=== PATIENT | male | born 1960 | race Caucasian/White ===

== ENCOUNTER → 2023-02-11 | Emergency (ER) | payer OTHER ==
[~2023-02-11] MED LIST: CEFTRIAXONE 1000 MG/VIAL ONE; NA CHLORIDE 0.9% 1,000 ML ONE; dexAMETHasone 10 MG/ML VIAL ONE
[2023-02-11 22:38] LABS: Potassium 3.6 mEq/L (3.5-5.1)
[2023-02-11 22:56] LABS: Absolute Lymphocytes (CBC) 1.7 K/uL (0.7-4.9); Hematocrit 41.8 % (39.6-49.0); MCV 87.7 fL (80-100); MPV 7.9 fL (7.6-11.3); Platelets 295 thou/uL (152-406); RBC Red Blood Cell Count 4.77 M/uL (4.33-5.43)
--- NOTE | 2023-02-12 00:11 | ER ---
Nurse's Notes [facility] Name: Julius Perez Jr Age: 63 yrs Sex: Male : 1960 Arrival Date: 02/11/2023 Time: 21:30 Bed 17 Private MD: Diagnosis: Streptococcal tonsillitis;Periapical abscess without sinus Presentation: 02/11 21:54 Chief complaint: Patient states: right sided throat and ear pain onset this morning. Pt cm10 states that he is trouble swallowing. Coronavirus screen: Client denies travel out of the [place] in the last 14 days. Ebola Screen: Patient denies travel to an Ebola-affected area in the 21 days before illness onset. No symptoms or risks identified at this time. Initial Sepsis Screen: Does the patient meet any 2 criteria? HR > 90 bpm. Does the patient have a suspected source of infection? No. Patient's initial sepsis screen is negative. Risk Assessment: Do you want to hurt yourself or someone else? Patient reports no desire to harm self or others. Onset of symptoms was February 11, 2023. 21:54 Method Of Arrival: Ambulatory cm10 21:54 Acuity: DENNIS 3 cm10 Historical: - Allergies: 21:55 No Known Allergies; cm10 - PMHx: 21:55 Diabetes mellitus; Hypertensive disorder; Hypercholesterolemia; cm10 - Immunization history:: Adult Immunizations up to date. - Social history:: Smoking status: Patient denies any tobacco usage or history of. Screenin:16 [facility] ED Fall Risk Assessment (Adult) History of falling in the last 3 months, lg3 including since admission No falls in past 3 months (0 pts). Abuse screen: Denies threats or abuse. Denies injuries from another. Nutritional screening: No deficits noted. Tuberculosis screening: No symptoms or risk factors identified. Assessment: 22:16 General: Appears in no apparent distress. uncomfortable, Behavior is calm, cooperative. lg3 Pain: Complains of pain in right ear, throat. Neuro: No deficits noted. Hernandez Agitation-Sedation Scale (RASS): 0 - Alert and Calm Level of Consciousness is awake, alert, obeys commands, Oriented to person, place, time, situation. Cardiovascular: No deficits noted. Denies chest pain, shortness of breath, Capillary refill < 3 seconds Clubbing of nail beds is absent JVD is absent Patient's skin is warm and dry. Respiratory: No deficits noted. Airway is patent Respiratory effort is even, unlabored, Respiratory pattern is regular, symmetrical. GI: No deficits noted. No signs and/or symptoms were reported involving the gastrointestinal system. Abdomen is round non-distended, obese. : No deficits noted. No signs and/or symptoms were reported regarding the genitourinary system. EENT: Throat is reddened has enlarged tonsils on right with gag reflex present, Reports difficulty swallowing pain when swallowing. Derm: No deficits noted. No signs and/or symptoms reported regarding the dermatologic system. Skin is intact, is healthy with good turgor, Skin is dry, Skin is normal, Skin temperature is warm. Musculoskeletal: No deficits noted. No signs and/or symptoms reported regarding the musculoskeletal system. Circulation, motion, and sensation intact. Range of motion: intact in all extremities. 02/12 00:33 Reassessment: Patient appears in no apparent distress at this time. Patient and/or jb4 family updated on plan of care and expected duration. Pain level reassessed. Patient is alert, oriented x 3, equal unlabored respirations, skin warm/dry/pink. Vital Signs: 02/11 21:54 BP 175 / 93; Pulse 115; Resp 18; Temp 99.6(O); Pulse Ox 96% on R/A; Weight 88.45 kg; cm10 Height 5 ft. 9 in. ; Pain 10/10; 21:54 Body Mass Index 28.80 (88.45 kg, 175.26 cm) cm10 21:54 Pain Scale: Adult cm10 ED Course: 21:38 Patient arrived in ED. gm2 21:41 Larissa [facility]il[facility]-C [facility]. kb 21:41 Juan Sanchez MD is Attending Physician. kb 21:55 Triage completed. cm10 21:56 Arm band placed on Patient placed in an exam room, on a stretcher. cm10 22:16 Patient has correct armband on for positive identification. Placed in gown. Bed in low lg3 position. Call light in reach. Side rails up X 1. Client placed on continuous cardiac and pulse oximetry monitoring. NIBP monitoring applied. Door closed. Noise minimized. Warm blanket given. 22:16 Patient maintains SpO2 saturation greater than 95% on room air. lg3 22:20 CBC with Diff Sent. jb4 22:20 Basic Metabolic Panel Sent. jb4 22:20 Strep Sent. jb4 22:20 Inserted saline lock: 18 gauge in right antecubital area, using aseptic technique. lg3 Blood collected. 23:40 CT Soft Tissue Neck W/contr In Process Unspecified. EDMS 02/12 00:33 No provider procedures requiring assistance completed. jb4 00:40 IV discontinued, intact, bleeding controlled, No redness/swelling at site. Pressure jb4 dressing applied. Administered Medications: 02/11 22:45 Drug: NS 0.9% IV 1000 ml IV at 1000 ml once Route: IV; Rate: 1000 ml; Site: right lg3 antecubital; 22:45 Drug: Decadron - Dexamethasone IVP 10 mg IVP once Route: IVP; Site: right antecubital; lg3 02/12 00:32 Drug: Rocephin IV 1 grams IV at calculated rate once; Given slow IV push per pharmacy jb4 instructions Route: IV; Rate: calculated rate; Site: right antecubital; Medication: 00:33 VIS not applicable for this client. jb4 Outcome: 00:10 Discharge ordered by . eli 00:34 Discharged to home ambulatory, jb4 00:34 Condition: stable 00:34 Discharge instructions given to patient, Instructed on discharge instructions, follow up and referral plans. medication usage, Demonstrated understanding of instructions, follow-up care, medications, Prescriptions given X 1, 00:40 Patient left the ED. jb4 Signatures: Dispatcher [employer] [facility] Larissa Aguilera, DOUGHMAKER-C DOUGHMAKER-CkDelroy Aguilar RN RN jb4 Sarah Perla RN RN lg3 Adriana Julian, RN RN cm10 Margarita Lima 2
--- NOTE | 2023-02-12 00:11 | EDPHYS ---
Physician Documentation [facility] Name: Julius Perez Jr Age: 63 yrs Sex: Male : 1960 Arrival Date: 02/11/2023 Time: 21:30 Bed 17 Private MD: ED Physician Juan Sanchez HPI: 02/11 23:46 This 63 yrs old Male presents to ER via Ambulatory with complaints of Ear Pain, Sore kb Throat, HARD TO SWALLOW. 23:46 Pt reports right sided throat pain and right ear pain that started this morning. States kb he had a low grade fever today as well. Denies cough, congestion, shortness of breath. Historical: - Allergies: 21:55 No Known Allergies; cm10 - PMHx: 21:55 Diabetes mellitus; Hypertensive disorder; Hypercholesterolemia; cm10 - Immunization history:: Adult Immunizations up to date. - Social history:: Smoking status: Patient denies any tobacco usage or history of. ROS: 23:46 Respiratory: Negative for shortness of breath, cough, wheezing, and pleuritic chest kb pain, 23:46 Constitutional: Positive for fever, 23:46 ENT: Positive for ear pain, sore throat, 23:46 All other systems are negative, Exam: 23:46 Constitutional: This is a well developed, well nourished patient who is awake, alert, kb and in no acute distress. Head/Face: Normocephalic, atraumatic. Cardiovascular: Regular rate Respiratory: Respirations even and unlabored. No increased work of breathing. Talking in full sentences Skin: Warm, dry with normal turgor. Normal color. MS/ Extremity: Pulses equal, no cyanosis. Neurovascular intact. Full, normal range of motion. Neuro: Awake and alert, GCS 15, oriented to person, place, time, and situation. Moves all extremities. Normal gait. 23:46 ENT: External ear(s): are unremarkable, Ear canal(s): are normal, TM's: are normal, Posterior pharynx: Airway: normal, no evidence of obstruction, Tonsils: enlarged on the right, with erythema, Uvula: normal, midline, swelling, that is moderate, erythema, that is moderate, Vital Signs: 21:54 BP 175 / 93; Pulse 115; Resp 18; Temp 99.6(O); Pulse Ox 96% on R/A; Weight 88.45 kg; cm10 Height 5 ft. 9 in. ; Pain 10/10; 21:54 Body Mass Index 28.80 (88.45 kg, 175.26 cm) cm10 21:54 Pain Scale: Adult cm10 MDM: 21:42 Patient medically screened. kb 23:48 Differential diagnosis: strep, pharyngitis, otitis media, RETAIL SERVICE TECHNICIAN. Data reviewed: vital kb signs, nurses notes. 02/12 00:09 Counseling: I had a detailed discussion with the patient and/or guardian regarding the kb historical points, exam findings, and any diagnostic results supporting the discharge/admit diagnosis, lab results, radiology results, the need for outpatient follow up, a dentist, an ENT specialist, to return to the emergency department if symptoms worsen or persist or if there are any questions or concerns that arise at home. ED course: CT shows no abscess. Will discharge home with antibiotics and recommend follow up with ENT. 02/11 21:56 Order name: CBC with Diff; Complete Time: 23:08 kb 02/11 21:56 Order name: Basic Metabolic Panel; Complete Time: 22:44 kb 02/11 21:56 Order name: Strep; Complete Time: 23:51 kb 02/11 21:56 Order name: CT Soft Tissue Neck W/contr kb 02/11 21:56 Order name: IV Start; Complete Time: 22:20 kb Administered Medications: 02/11 22:45 Drug: NS 0.9% IV 1000 ml IV at 1000 ml once Route: IV; Rate: 1000 ml; Site: right lg3 antecubital; 22:45 Drug: Decadron - Dexamethasone IVP 10 mg IVP once Route: IVP; Site: right antecubital; lg3 02/12 00:32 Drug: Rocephin IV 1 grams IV at calculated rate once; Given slow IV push per pharmacy jb4 instructions Route: IV; Rate: calculated rate; Site: right antecubital; Disposition Summary: 02/12/23 00:10 Discharge Ordered Notes: Location: Home kb Condition: Stable kb Diagnosis - Streptococcal tonsillitis kb - Periapical abscess without sinus kb Followup: kb - With: Emergency Department - When: As needed - Reason: Worsening of condition Followup: kb - With: Private Physician - When: 2 - 3 days - Reason: Recheck today's complaints, Continuance of care, Re-evaluation by your physician Discharge Instructions: - Discharge Summary Sheet kb - Strep Throat, Adult, [id number] kb - Dental Abscess, [id number] kb Forms: - Medication Reconciliation Form kb - Thank You Letter kb - Antibiotic Education kb - Prescription Opioid Use kb - Patient Portal Instructions kb - Leadership Thank You Letter kb Prescriptions: - Augmentin 875-125 mg Oral Tablet - take 1 tablet ORAL route every 12 hours for 10 days; 20 tablet; Refills: 0, kb Product Selection Permitted Signatures: Dispatcher [employer] EDMS Larissa Aguilera, CRITICAL CARE NURSE-C CRITICAL CARE NURSE-Ckb Delroy Espinoza, RN RN jb4 Sarah Perla RN RN lg3 Adriana Julian, RN RN cm10
[2023-02-12 02:18] VITALS: BP 175/93; TEMP 99.6; O2SAT 96
--- NOTE | 2023-02-12 08:28 | RAD REPORT ---
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 Intravenous contrast was adm inistered. This exam was performed according to our departmental dose-optimization program which includes use of Automated Exposure Control, adjustment of the mA and/or kV according to patient size and. Effaceme nt right piriform sinus. Or use of iterative reconstruction technique. FINDINGS: 2.6 x 1.9 cm ill-defined focal region of decreased attenuation right tonsillar soft tissue s. Ill-defined enhancement is seen. No definite peripheral enhancement noted. The finding would be mo st consistent with phlegmon and pharyngitis. No well-defined drainable abscess seen. Airway narrowing at this level. Additional edema extending from the parapharyngeal soft tissues on the right inferior ly to the aryepiglottic folds and superiorly to the right pterygoid plate. No edema is seen involving the epiglottis. There is effacement right piriform sinus. No additional laryngeal abnormalities seen . Enlarged right submandibular gland as compared to the left likely reactive inflammation. No abnorma lity parotid glands bilaterally. At least 3 dental abscesses right lower teeth. Additional multiple d ental abscesses right upper teeth. Multiple dental caries bilaterally. Nonspecific punctate calcifica tions parapharyngeal soft tissues. No filling defects carotid arteries or jugular veins bilaterally. Adenopathy retromandibular regions bilaterally. The largest lymph node on the right measures 1.6 cm in transverse dimension. The largest lymph node on the left measures 1.7 cm in transverse dimension. Prevertebral soft tissues appear nor mal. No CT evidence for retropharyngeal abscess. Mild mucosal thickening maxillary antra bilaterally. No abnormality in lung apices bilaterally. No acute osseous abnormality. Reversal normal cervical lordosis indicating muscle spasm. Mild degener ative change IMPRESSION: 1. Edema right parapharyngeal soft tissues with 2.6 cm ill-defined region of decreased attenuation right tonsillar soft tissues. The findings extend inferiorly to the right aryepiglottic folds. No edema involving the epiglottis. The findings would be most consistent with phlegmon and pha ryngitis. No well-defined drainable abscess seen. Airway narrowing at this level. Associated multiple right dental abscesses. 2. Mild bilateral cervical adenopathy. 3. Enlarged right submandibular gland likely reactive inflammation. Electronically signed by: Noelle Lopes MD 02/12/2023 12:05 AM PIPE [employer]TER MARINE Due to temporary technical issues with the PACS/Fluency reporting system, reports are being signed by the in house radiologist without review as a courtesy to ensure prompt reporting. The interpreting r adiologist is fully responsible for the content of the report.
== END ==
LOC: ER 21:30
DX: J02.0 Streptococcal pharyngitis (principal); K04.7 Periapical abscess without sinus; H92.01 Otalgia, right ear; E11.9 Type 2 diabetes mellitus without complications; I10 Essential (primary) hypertension
CPT/HCPCS: 85025; 80048; 36415; 87081; 70491; 96375; 96374; 99285; Q9967; J1100; J7030

== ENCOUNTER 2024-03-12 11:31 | Emergency (ER) | payer OTHER ==
--- NOTE | 2024-03-12 13:44 | RAD REPORT ---
EXAMINATION: US Extrem Venous W Compress Taran CLINICAL INDICATION: [facility] MAIN PAIN Bed: N TECHNIQUE: Complete bilateral duplex sonography of the BILATERAL lower extremity veins was performed. The examination included compression for vein patency, color Doppler imaging and flow augmentation in response to distal compression of the distal external iliac, common femoral, femoral, popliteal, t ibial, and great and small saphenous veins. COMPARISON: No prior exam. FINDINGS: Duplex sonography testing of the veins of the BILATERAL lower extremity was performed. Color flow matthieu ging shows all veins to be compressible with rouleaux appearance bilaterally which may suggest slow flow. Pulsatile and phasic flow is present within all lower extremity deep and superficial veins exam ined. IMPRESSION: No evidence of deep venous or superficial vein thrombosis bilaterally.
--- NOTE | 2024-03-12 13:50 | RAD REPORT ---
EXAMINATION: ONE VIEW CHEST XR CLINICAL INDICATION: Male, 64 years old.,Pain;Swelling TECHNIQUE: Frontal chest projection is submitted. Examination is limited by patient positioning and t echnique. COMPARISON: No prior exam. FINDINGS: The lungs are well inflated and clear. No pneumothorax or sizable effusion. The heart is normal in s ize. Mediastinal contours are unremarkable. IMPRESSION: No acute intrathoracic abnormalities.
[2024-03-12 13:51] LABS: Specific Gravity 1.013 (1.005-1.030); Urine Bilirubin NEGATIVE (Negative); Urine Blood Negative (Negative); Urine Clarity Clear (Clear); Urine Color Colorless (Yellow); Urine Glucose 4+ (Over) (Negative); Urine Ketones NEGATIVE (Negative); Urine Microscopic Reflex YN NO UMIC; Urine Nitrite NEGATIVE (Negative); Urine Protein NEGATIVE (Negative); Urine Urobilinogen Normal (Normal); Urine pH 6.5 (5.0-7.0)
[2024-03-12 13:55] LABS: PT Prothrombin Time 11.5 SECONDS (9.4-12.5); Protime INR 1.1
[2024-03-12 14:02] LABS: Absolute Basophils 0.1 K/uL (0-0.5); Absolute Eosinophils 0.2 K/uL (0-0.5); Absolute Lymphocytes (CBC) 2.1 K/uL (0.7-4.9); Absolute Monocytes 0.8 K/uL (0.1-1.3); Basophils % 1.1 % (0-1.3); Hematocrit 37.6 % (39.6-49.0); Hemoglobin 13.1 g/dL (13.6-17.9); Lymphocytes % 20.3 % (15.3-44.8); MCH 30.7 pg (27.0-35.0); MCHC 34.8 g/dL (32.0-36.0); MCV 88.1 fL (80-100); Neutrophils % 68.6 % (41.7-73.7); Nucleated Red Blood Cells % 0.1 % (0-0); Platelets 445 thou/uL (152-406); RBC Red Blood Cell Count 4.26 M/uL (4.33-5.43); Red Cell Distribution Width 12.9 % (12.1-15.2)
[2024-03-12 14:10] LABS: Albumin 3.3 g/dL (3.4-5.0); Albumin/Globulin Ratio 0.7 (1.1-1.8); Anion Gap 8.7 mEq/L (5.0-15.0); Bilirubin Direct 0.3 mg/dL (0-0.2); Bilirubin Indirect, Calculated 0.9 mg/dL (0.2-0.8); Bilirubin Total 1.2 mg/dL (0.2-1.0); Globulin 4.7 g/dL (2.3-3.5); Magnesium 2.5 mg/dL (1.6-2.4); Potassium 2.7 mEq/L (3.5-5.1); Troponin High Sensitivity 37.7 pg/mL (<58.9)
[2024-03-12] MEDS ORDERED: POTASSIUM 25 MEQ EFFERV TAB ONE ×2 (15:14→15:46)
[2024-03-12] MEDS ORDERED: NA CHLORIDE 0.9% 250 ML ONE (15:14)
--- NOTE | 2024-03-12 15:42 | ER ---
Nurse's Notes [facility] Name: Julius Perez Jr Age: 64 yrs Sex: Male : 1960 Arrival Date: 03/12/2024 Time: 11:31 Bed 6 Private MD: Diagnosis: Edema, unspecified;Retention of urine, unspecified;Essential (primary) hypertension;Unspecified kidney failure-POST OBSTRUCTIVE;Hypokalemia Presentation: 03/12 12:10 Chief complaint: Patient states: Left leg pain and swelling onset Sunday. Pt states cm10 that Sunday night both of his legs were swollen. Pt also reports right flank pain with incontinence. Pt had long drive on Sunday and Sunday. No shortness of breath. Coronavirus screen: Client denies travel out of the [place] in the last 14 days. Ebola Screen: Patient denies travel to an Ebola-affected area in the 21 days before illness onset. Initial Sepsis Screen: Does the patient meet any 2 criteria? No. Patient's initial sepsis screen is negative. Does the patient have a suspected source of infection? No. Patient's initial sepsis screen is negative. Risk Assessment: Do you want to hurt yourself or someone else? Patient reports no desire to harm self or others. Onset of symptoms was March 12, 2024. 12:10 Method Of Arrival: Ambulatory cm10 12:10 Acuity: DENNIS 3 cm10 Triage Assessment: 12:13 General: Appears in no apparent distress. comfortable, Behavior is calm, cooperative. cm10 Neuro: No deficits noted. Level of Consciousness is awake, alert, obeys commands, Oriented to person, place, time, situation, Appropriate for age. Respiratory: No deficits noted. Airway is patent Respiratory effort is even, unlabored, Respiratory pattern is regular, symmetrical. Historical: - Allergies: 12:12 No Known Allergies; cm10 - PMHx: 12:12 diabetes mellitus; Hypercholesterolemia; Hypertensive disorder; cm10 - Immunization history:: Adult Immunizations up to date. - Infectious Disease History:: Denies. - Social history:: Smoking status: Patient denies any tobacco usage or history of. Patient/guardian denies using street drugs. - Family history:: not pertinent. Screenin:44 [facility] ED Fall Risk Assessment (Adult) History of falling in the last 3 months, kc6 including since admission No falls in past 3 months (0 pts) Confusion or Disorientation No (0 pts) Intoxicated or Sedated No (0 pts) Impaired Gait No (0 pts) Mobility Assist Device Used No (0 pt) Altered Elimination No (0 pt) Score/Fall Risk Level 0 - 2 = Low Risk Oriented to surroundings, Maintained a safe environment, Educated pt \T\ family on fall prevention, incl call for assistance when getting out of bed. Abuse screen: Denies threats or abuse. Denies injuries from another. Nutritional screening: No deficits noted. Tuberculosis screening: No symptoms or risk factors identified. Assessment: 15:42 Reassessment: Patient and/or family updated on plan of care and expected duration. Pain bm7 level reassessed. Patient is alert, oriented x 3, equal unlabored respirations, skin warm/dry/pink. Pain: Denies pain. Vital Signs: 12:10 BP 196 / 102; Pulse 87; Resp 15; Temp 97.4(O); Pulse Ox 96% ; Weight 88.45 kg; Height 5 cm10 ft. 8 in. ; Pain 7/10; 17:17 BP 182 / 90; Pulse 85; Resp 17 S; Pulse Ox 99% on R/A; kc6 12:10 Body Mass Index 29.65 (88.45 kg, 172.72 cm) cm10 12:10 Pain Scale: Adult cm10 ED Course: 11:35 Patient arrived in ED. mr 11:39 Juan Sanchez MD is Attending Physician. adamaris 12:12 Triage completed. cm10 12:12 Arm band placed on right wrist. Patient placed in waiting room. cm10 13:10 US Extremity Venous W Compression Taran In Process Unspecified. EDMS 13:10 Radiology exam delayed due to unable to locate patient. multiple attempts. md2 13:20 XRAY Chest (1 view) In Process Unspecified. EDMS 13:44 Lipase Sent. bc6 13:44 Urinalysis w/ reflexes Sent. bc6 13:44 Basic Metabolic Panel Sent. bc6 13:44 CBC with Diff Sent. bc6 13:44 LFT's Sent. bc6 13:44 Magnesium Sent. bc6 13:44 NT PRO-BNP Sent. bc6 13:44 PT-INR Sent. bc6 13:44 Troponin HS Sent. bc6 13:44 Initial lab(s) drawn, by me, sent to lab. Urine collected: clean catch specimen. bc6 Inserted saline lock: 20 gauge in right antecubital area, using aseptic technique. Blood collected. Flushed with 10 mL NS. 15:21 Melani Rice, SHAVON is Primary Nurse. ld1 15:26 CT Stone Protocol In Process Unspecified. EDMS 15:41 Kavno Cordova MD is Referral Physician. [facility] 15:41 Jaffe cath inserted, using sterile technique, 16 Fr., by me, balloon inflated, to ty gravity drainage, clamped. returned clear yellow urine. Patient tolerated well. 15:42 No apparent distress. Resting quietly. Awaiting lab results. bm7 16:44 Patient has correct armband on for positive identification. Bed in low position. Call kc6 light in reach. Side rails up X2. Pulse ox on. NIBP on. Door closed. Noise minimized. Lights dimmed. Warm blanket given. Pillow given. 17:17 No provider procedures requiring assistance completed. IV discontinued, intact, kc6 bleeding controlled, No redness/swelling at site. Pressure dressing applied. Administered Medications: 12:02 CANCELLED (Duplicate Order): ns 0.9% 250 ml IV at 75 ml/hr once; to be given as a bolus adamaris over 30 minutes 15:21 Drug: NS 0.9% IV 250 ml IV at 75 ml/hr once Route: IV; Rate: 75 ml/hr; Site: right ld1 antecubital; 17:17 Follow up: Response: No adverse reaction; IV Status: Completed infusion; IV Intake: kc6 100ml 15:21 Drug: Potassium PO Effervescent Tablet 50 mEq PO once; dissolve in 4 ounces of water or ld1 juice Route: PO; 15:44 Follow up: Response: No adverse reaction bm7 15:53 Drug: Ciprofloxacin PO 500 mg PO once Route: PO; ld1 15:54 Follow up: Response: No adverse reaction ld1 15:53 Drug: Potassium PO Effervescent Tablet 50 mEq PO once; dissolve in 4 ounces of water or ld1 juice Route: PO; 15:54 Follow up: Response: No adverse reaction ld1 Medication: 17:18 VIS not applicable for this client. kc6 Intake: 17:17 IV: 100ml; Total: 100ml. kc6 Output: 15:41 Urine: 1000ml (Jaffe); Total: 1000ml. bm7 15:55 Urine: 1000ml (Jaffe); Total: 2000ml. ty Outcome: 15:41 Discharge ordered by . adamaris 17:17 Discharged to home ambulatory, mary 17:17 Condition: good 17:17 Discharge instructions given to patient, Instructed on discharge instructions, follow up and referral plans. medication usage, Demonstrated understanding of instructions, follow-up care, medications, Prescriptions given X 2, 17:24 Patient left the ED. kc6 Signatures: Dispatcher [employer] EDMS Juan Sanchez MD MD cha Rivera, Beryl, Reg Reg mr LukeNellie, RN RN bm7 Melani Rice RN RN ld1 Ivett Solorio RN RN kc6 Guerda Simental Breana bc6 Martinez, Clarissa RN RN cm10 Yves Rosenthal ty
--- NOTE | 2024-03-12 15:42 | EDPHYS ---
Physician Documentation [facility] Name: Julius Perez Jr Age: 64 yrs Sex: Male : 1960 Arrival Date: 03/12/2024 Time: 11:31 Bed 6 Private MD: MARK Physician Juan Sanchez HPI: 03/12 15:03 This 64 yrs old Male presents to ER via Ambulatory with complaints of Leg adamaris Swelling, Urinary Problem. 15:03 The patient presents with decreased range of motion, pain, swelling, tenderness. The adamaris complaints affect the right leg and left leg. Context: The problem was sustained at an unknown site. Onset: The symptoms/episode began/occurred 3 day(s) ago. Modifying factors: The symptoms are alleviated by nothing. the symptoms are aggravated by movement. Associated signs and symptoms: Pertinent positives: swelling, of the right leg and left leg. The patient presents with urinary symptoms, dribbling of urine, dysuria, urinary frequency, hesitancy to initiate urine stream. Modifying factors: The symptoms are alleviated by nothing, the symptoms are aggravated by nothing. cat pee normally, lower abd pain , le swelling. Associated signs and symptoms: Pertinent positives: abdominal pain. Historical: - Allergies: 12:12 No Known Allergies; cm10 - PMHx: 12:12 diabetes mellitus; Hypercholesterolemia; Hypertensive disorder; cm10 - Immunization history:: Adult Immunizations up to date. - Infectious Disease History:: Denies. - Social history:: Smoking status: Patient denies any tobacco usage or history of. Patient/guardian denies using street drugs. - Family history:: not pertinent. ROS: 15:03 Constitutional: Negative for fever, chills, and weight loss, Eyes: Negative for injury, adamaris pain, redness, and discharge, ENT: Negative for injury, pain, and discharge, Neck: Negative for injury, pain, and swelling, Cardiovascular: Negative for chest pain, palpitations, and edema, Respiratory: Negative for shortness of breath, cough, wheezing, and pleuritic chest pain, Back: Negative for injury and pain, Skin: Negative for injury, rash, and discoloration, Neuro: Negative for headache, weakness, numbness, tingling, and seizure, Psych: Negative for depression, anxiety, suicide ideation, homicidal ideation, and hallucinations, Allergy/Immunology: Negative for hives, rash, and allergies, Endocrine: Negative for neck swelling, polydipsia, polyuria, polyphagia, and marked weight changes, Hematologic/Lymphatic: Negative for swollen nodes, abnormal bleeding, and unusual bruising, 15:03 Abdomen/GI: Positive for abdominal pain, of the suprapubic area, right lower quadrant and left lower quadrant, 15:03 MS/extremity: Positive for pain, swelling, tenderness, of the right leg and left leg, Exam: 15:03 Constitutional: This is a well developed, well nourished patient who is awake, alert, adamaris and in no acute distress. Head/Face: Normocephalic, atraumatic. Eyes: Pupils equal round and reactive to light, extra-ocular motions intact. Lids and lashes normal. Conjunctiva and sclera are non-icteric and not injected. Cornea within normal limits. Periorbital areas with no swelling, redness, or edema. ENT: Nares patent. No nasal discharge, no septal abnormalities noted. Tympanic membranes are normal and external auditory canals are clear. Oropharynx with no redness, swelling, or masses, exudates, or evidence of obstruction, uvula midline. Mucous membranes moist. Neck: Trachea midline, no thyromegaly or masses palpated, and no cervical lymphadenopathy. Supple, full range of motion without nuchal rigidity, or vertebral point tenderness. No Meningismus. Chest/axilla: Normal chest wall appearance and motion. Nontender with no deformity. No lesions are appreciated. Cardiovascular: Regular rate and rhythm with a normal S1 and S2. No gallops, murmurs, or rubs. Normal PMI, no JVD. No pulse deficits. Respiratory: Lungs have equal breath sounds bilaterally, clear to auscultation and percussion. No rales, rhonchi or wheezes noted. No increased work of breathing, no retractions or nasal flaring. Back: No spinal tenderness. No costovertebral tenderness. Full range of motion. Skin: Warm, dry with normal turgor. Normal color with no rashes, no lesions, and no evidence of cellulitis. Neuro: Awake and alert, GCS 15, oriented to person, place, time, and situation. Cranial nerves II-XII grossly intact. Motor strength 5/5 in all extremities. Sensory grossly intact. Cerebellar exam normal. Normal gait. Psych: Awake, alert, with orientation to person, place and time. Behavior, mood, and affect are within normal limits. 15:03 Abdomen/GI: Inspection: distension, that is moderate, Bowel sounds: normal, Palpation: mild abdominal tenderness, in the suprapubic area, Liver: no appreciated palpable abnormalities, Hernia: not appreciated, 15:03 Musculoskeletal/extremity: ROM: no acute changes, intact in all extremities, full active range of motion, full passive range of motion, Circulation is intact in all extremities. Sensation intact. Compartment Syndrome exam of affected extremity: is normal. Weight bearing: able to fully bear weight, DVT Exam: no pain, swelling, tenderness, 15:29 ECG was reviewed by the Attending Physician. [facility] Vital Signs: 12:10 BP 196 / 102; Pulse 87; Resp 15; Temp 97.4(O); Pulse Ox 96% ; Weight 88.45 kg; Height 5 cm10 ft. 8 in. ; Pain 7/10; 17:17 BP 182 / 90; Pulse 85; Resp 17 S; Pulse Ox 99% on R/A; kc6 12:10 Body Mass Index 29.65 (88.45 kg, 172.72 cm) cm10 12:10 Pain Scale: Adult cm10 MDM: 11:39 Medical Screening Exam initiated adamaris 15:12 Differential diagnosis: nonspecific abdominal pain, UTI, urinary retention, adamaris prostatitis, urethritis. Differential Diagnosis. Data reviewed: vital signs, nurses notes, lab test result(s), EKG, radiologic studies, CT scan, doppler, plain films. Consideration of Admission/Observation Escalation of care including admission/observation considered. I considered the following discharge prescriptions or medication management in the emergency department Medications were administered in the Emergency Department. See MAR. Independent interpretation of the following test(s) in the Emergency Department EKG: See my EKG interpretation above. Test considered but Not performed: Ultrasound no abd usg. 03/12 12: Order name: Basic Metabolic Panel; Complete Time: 14:52 [facility] 03/12 12: Order name: CBC with Diff; Complete Time: 14:52 [facility] 03/12 12: Order name: LFT's; Complete Time: 14:52 [facility] 03/12 12: Order name: Magnesium; Complete Time: 14:52 [facility] 03/12 12: Order name: NT PRO-BNP; Complete Time: 14:52 [facility] 03/12 12:02 Order name: PT-INR; Complete Time: 14:52 adamaris 03/12 12:02 Order name: Troponin HS; Complete Time: 14:52 [facility] 03/12 12:02 Order name: Urinalysis w/ reflexes; Complete Time: 14:52 adamaris 03/12 12:02 Order name: Lipase; Complete Time: 14:52 [facility] 03/12 12:02 Order name: XRAY Chest (1 view); Complete Time: 14:52 adam[facility] 03/12 12:02 Order name: US Extremity Venous W Compression Taran; Complete Time: 14:52 [facility] 03/12 14:59 Order name: CT Stone Protocol adamaris 03/12 12:02 Order name: EKG; Complete Time: 12:03 [facility] 03/12 12:02 Order name: Cardiac monitoring; Complete Time: 15:21 [facility] 03/12 12:02 Order name: EKG - Nurse/Tech; Complete Time: 15:21 [facility] 03/12 12:02 Order name: IV Saline Lock; Complete Time: 13:44 [facility] 03/12 12:02 Order name: Labs collected and sent; Complete Time: 13:44 [facility] 03/12 12:02 Order name: O2 Per Protocol; Complete Time: 15:07 adamaris 03/12 12:02 Order name: O2 Sat Monitoring; Complete Time: 15:07 adamaris 03/12 14:59 Order name: PO challenge: juice; Complete Time: 15:21 [facility] 03/12 14:59 Order name: Bladder Scanner: note pvr, laonso if greater than 100cc; Complete Time: 15:37[facility] 03/12 15:35 Order name: Alonso: note pvr; Complete Time: 15:37 [facility] 03/12 15:36 Order name: Alonso Leg Bag; Complete Time: 15:37 [facility] EC:29 Rate is 89 beats/min. Rhythm is regular. QRS [place] is Normal. CA interval is normal. QRS adamaris interval is normal. QT interval is normal. No Q waves. T waves are Normal. No ST changes noted. Clinical impression: NSR w/ Non-specific ST/T Changes and No evidence of ischemia. Interpreted by me. Reviewed by me. Administered Medications: 12:02 CANCELLED (Duplicate Order): ns 0.9% 250 ml IV at 75 ml/hr once; to be given as a bolus [facility] over 30 minutes 15:21 Drug: NS 0.9% IV 250 ml IV at 75 ml/hr once Route: IV; Rate: 75 ml/hr; Site: right ld1 antecubital; 17:17 Follow up: Response: No adverse reaction; IV Status: Completed infusion; IV Intake: kc6 100ml 15:21 Drug: Potassium PO Effervescent Tablet 50 mEq PO once; dissolve in 4 ounces of water or ld1 juice Route: PO; 15:44 Follow up: Response: No adverse reaction bm7 15:53 Drug: Ciprofloxacin PO 500 mg PO once Route: PO; ld1 15:54 Follow up: Response: No adverse reaction ld1 15:53 Drug: Potassium PO Effervescent Tablet 50 mEq PO once; dissolve in 4 ounces of water or ld1 juice Route: PO; 15:54 Follow up: Response: No adverse reaction ld1 Disposition Summary: 03/12/24 15:41 Discharge Ordered Notes: Location: Home adamaris Problem: new adamaris Symptoms: have improved adamaris Condition: Stable adamaris Diagnosis - Edema, unspecified adamaris - Retention of urine, unspecified adamaris - Essential (primary) hypertension adamaris - Unspecified kidney failure - POST OBSTRUCTIVE adamaris - Hypokalemia adamaris Followup: adamaris - With: Private Physician - When: 2 - 3 days - Reason: Recheck today's complaints, Continuance of care, Re-evaluation by your physician Followup: adamaris - With: Kavon Cordova MD - When: 2 - 3 days - Reason: Recheck today's complaints, Re-evaluation by your physician Discharge Instructions: - Discharge Summary Sheet adamaris - Potassium Content of Foods adamaris - Edema adamaris - Hypertension, Adult adamaris - Acute Urinary Retention, Male adamaris - Hypertension, Adult, [id number] adamaris - Acute Urinary Retention, Male, [id number]-[id number] adamaris - Edema, Vfag-wa-Flfc adamaris - Acute Kidney Injury, Adult adamaris - Hypokalemia adamaris Forms: - Medication Reconciliation Form adamaris - Antibiotic Education adamaris - Prescription Opioid Use adamaris - Patient Portal Instructions adamaris - Leadership Thank You Letter [facility] Prescriptions: - Flomax 0.4 mg Oral capsule - take 1 capsule ORAL route once; 30 capsule; Refills: 0, Product Selection adamaris Permitted - Cipro 250 mg Oral tablet - take 1 tablet ORAL route every 12 hours; 14 tablet; Refills: 0, Product adamaris Selection Permitted Signatures: Dispatcher [employer] Juan Escobar MD MD cha Sims, Lauren RN RN ld1 Adriana Julian RN RN cm10 Nellie Butler RN bm7 Ivett Solorio RN kc6 Corrections: (The following items were deleted from the chart) 12: 12:02 NS 0.9% IV 250 ml IV at 75 ml/hr once; to be given as a bolus over 30 minutes adamaris ordered. adamaris 12: 12:03 BASIC METABOLIC PANEL+C.LAB.BRZ ordered. EDMS EDMS 12: 12:03 CBC+H.LAB.BRZ ordered. EDMS EDMS 12: 12:03 HEPATIC FUNCTION+C.LAB.BRZ ordered. EDMS EDMS 12: 12:03 MAGNESIUM+C.LAB.BRZ ordered. EDMS EDMS 12: 12:03 PROBNP+C.LAB.BRZ ordered. EDMS EDMS 12: 12:03 PROTIME (+INR)+COAG.LAB.BRZ ordered. EDMS EDMS 12: 12:03 Troponin High Sensitivity+C.LAB.BRZ ordered. EDMS EDMS 12: 12:03 Urinalysis+U.LAB.BRZ ordered. EDMS EDMS 12:03 12:03 LIPASE+C.LAB.BRZ ordered. EDMS EDMS 12:03 12:03 Extrem Venous W Compression Taran+US.RAD.BRZ ordered. EDMS EDMS
[2024-03-12] MEDS ORDERED: CIPROFLOXACIN HCL 500 MG TAB ONE (15:46)
--- NOTE | 2024-03-12 16:18 | RAD REPORT ---
EXAMINATION: CT Stone Protocol CLINICAL INDICATION: Male, 64 years old. ABD PAIN TECHNIQUE: CT abdomen and pelvis was performed, without IV contrast, as per department protocol. Axia l, sagittal and coronal reconstructions were obtained. One or more of the following dose reduction techniques were used: Automated exposure control, adjustment of the mA and kV according to the patien t size, and iterative reconstruction. Unless otherwise specified, incidental findings do not require dedicated imaging follow-up. COMPARISON: No prior exam. FINDINGS: The lack of intravenous contrast limits the sensitivity of this exam for evaluation of solid visceral organs, vascular structures, and retroperitoneum. LOWER CHEST: Incidentally noted 4 mm peripheral left lower lobe nodule. LIVER: Normal in size and contour. No focal lesion. BILIARY SYSTEM: Suboptimal distention of the urinary bladder which limits evaluation. SPLEEN: Normal size. No focal lesion. PANCREAS: No mass, ductal dilation, or jose-pancreatic fluid. ADRENALS: Normal; no mass. KIDNEYS AND URETERS: Normal size and contour. Mild to moderate bilateral hydroureteronephrosis. No ev idence of calculi. Incidentally noted exophytic fluid density right anterior interpolar 1.5 cm lesion, may suggest a small cyst. URINARY BLADDER: Markedly distended extending above the level of the umbilicus. Mild pericystic fat s tranding could be reactive or related to ongoing infection.. GASTROINTESTINAL TRACT: No evidence of bowel obstruction, significant free fluid, free air or abscess . APPENDIX: Normal appendix. LYMPH NODES: No lymphadenopathy. MUSCULOSKELETAL: No acute or suspicious osseous abnormality. ADDITIONAL FINDINGS: Prostatomegaly with lobulated appearance of the median eminence projecting along the bladder neck. IMPRESSION: Markedly distended urinary bladder. Marked prostatomegaly with lobulated appearance of the median princess nence. Findings suggest bladder outlet obstruction. Mild pericystic fat stranding could be reactive or related to superimposed cystitis. Please correlate with urinalysis results. Mild to moderate bilateral hydroureteronephrosis, with no evidence of obstructing calculi, suggesting sequelae of reflux disease. Incidentally noted 4 mm peripheral left lower lung lobe nodule, probably benign given size.
[2024-03-12 17:48] VITALS: TEMP 97.4
[2024-03-12 17:49] VITALS: BP 182/90; O2SAT 99
--- NOTE | 2024-03-13 11:28 | EKG ---
Test Date: 2024-03-12 Test Time: 15:24:22 [employer]in [employer] Drier: Abbey MERCADO MEASUREMENT RESULTS: Intervals: Rate: 89 DC: 150 QRSD: 92 QT: 380 QTc: 462 [place]: P: 34 DC: 150 QRS: 1 T: 121 INTERPRETIVE STATEMENTS: Normal sinus rhythm Possible Inferior infarct, age undetermined Cannot rule out Anterior infarct, age undetermined Abnormal ECG No previous ECG available for comparison Electronically Signed On 03-13-24 11:25:53 [employer] by Bonifacio Mckinney
== END 2024-03-12 17:24 | disposition home or self-care (01) ==
LOC: ER 11:31
DX: R60.9 Edema, unspecified (principal); R33.9 Retention of urine, unspecified; E87.6 Hypokalemia; I10 Essential (primary) hypertension; N19 Unspecified kidney failure
CPT/HCPCS: 85025; 80048; 36415; 83735; 85610; 80076; 81003; 84484; 83690; 83880; 76377; 74176; 71045; 93970; J7050; 93005

== ENCOUNTER 2024-03-15 05:06 | Emergency (ER) | payer OTHER ==
--- NOTE | 2024-03-15 08:13 | ER ---
Nurse's Notes [facility] Name: Julius Perez Jr Age: 64 yrs Sex: Male : 1960 Arrival Date: 03/15/2024 Time: 05:06 Bed 8 Private MD: Diagnosis: Urinary retention;Complication of indwelling Guzman catheter Presentation: 03/15 05:53 Chief complaint: Patient states: PT STATES GUZMAN CATHETER HASN'T BEEN DRAINING SINCE br2 1AM, C/O LOWER AB PRESSURE. Coronavirus screen: Client denies travel out of the [place] in the last 14 days. Ebola Screen: Patient denies exposure to infectious person. Initial Sepsis Screen: Does the patient meet any 2 criteria? No. Patient's initial sepsis screen is negative. Does the patient have a suspected source of infection? No. Patient's initial sepsis screen is negative. Risk Assessment: Do you want to hurt yourself or someone else? Patient reports no desire to harm self or others. Onset of symptoms was March 15, 2024 at 01:00. 05:53 Method Of Arrival: Ambulatory br2 05:53 Acuity: DENNIS 3 br2 Triage Assessment: 05:55 General: Appears uncomfortable, Behavior is cooperative. Pain: Complains of pain in br2 suprapubic area Pain currently is 7 out of 10 on a pain scale. Historical: - Allergies: 05:55 No Known Allergies; br2 - PMHx: 05:55 diabetes mellitus; Hypercholesterolemia; Hypertensive disorder; br2 - Immunization history:: Adult Immunizations up to date. - Infectious Disease History:: Denies. - Social history:: Smoking status: Patient denies any tobacco usage or history of. Patient/guardian denies using alcohol, street drugs. - Family history:: not pertinent. Screenin:44 [facility] ED Fall Risk Assessment (Adult) History of falling in the last 3 months, ha1 including since admission No falls in past 3 months (0 pts) Confusion or Disorientation No (0 pts) Intoxicated or Sedated No (0 pts) Impaired Gait No (0 pts) Mobility Assist Device Used No (0 pt) Altered Elimination No (0 pt) Score/Fall Risk Level 0 - 2 = Low Risk Oriented to surroundings, Maintained a safe environment, Educated pt \T\ family on fall prevention, incl call for assistance when getting out of bed, Hourly rounding (assess needs \T\ fall precautionary measures) done. Abuse screen: Denies threats or abuse. Denies injuries from another. Nutritional screening: No deficits noted. Tuberculosis screening: No symptoms or risk factors identified. Assessment: 05:55 General: Appears ill, Behavior is cooperative. Pain: Complains of pain in pelvis Pain ha1 currently is 10 out of 10 on a pain scale. Quality of pain is described as pressure. Neuro: Level of Consciousness is awake, alert, obeys commands, Oriented to person, place, time, situation. Cardiovascular: Patient's skin is warm and dry. Respiratory: Airway is patent Respiratory effort is even, unlabored, Respiratory pattern is regular, symmetrical. GI: No signs and/or symptoms were reported involving the gastrointestinal system. Abdomen is round non-distended. : 3-way catheter in place to gravity drainage. 05:55 : Reports unable to drain urinary catheter. ha1 06:35 Reassessment: Patient and/or family updated on plan of care and expected duration. Pain ha1 level reassessed. Patient is alert, oriented x 3, equal unlabored respirations, skin warm/dry/pink. Patient denies pain at this time. Patient states feeling better. Patient states symptoms have improved. 07:30 Reassessment:. Reassessment: Resumed care of patient from Torie SANDS. Three way guzman hb catheter in place with leg bag attached, guzman clogged. Several large blood clots and copious amount of calderon colored sediment cleared with from line with saline via manual irrigation per protocol. Leg changed to large urine collection bag and 3 L NS infusing by gravity. Pt tolerated well. Pt instructed to call for discomfort. Pt verbalized understanding of instructions. Dr. Perez and Dr. Esparza notified. 08:15 Reassessment: Guzman clogged, cleared via manual irrigation. Pt tolerated well. NS hb infusing by gravity. Dr. Esparza aware. 09:34 Reassessment: Sims tinged urine with sediment flowing from three way guzman into hb collection bag. New 3L bag saline hung by gravity. 10:35 Reassessment: Guzman bag removed and leg bag placed on patient. Sims tinged urine noted hb to be emptying into bag. Vital Signs: 05:53 BP 181 / 96; Pulse 108; Resp 18; Temp 98.4; Pulse Ox 94% ; Weight 88 kg; Height 5 ft. 8 br2 in. ; Pain 7/10; 06:20 BP 143 / 88; Pulse 95; Resp 18 S; Pulse Ox 98% on R/A; ha1 10:23 BP 176 / 96; Pulse 76; Resp 15; Pulse Ox 96% ; hb 05:53 Body Mass Index 29.50 (88.00 kg, 172.72 cm) br2 05:53 Pain Scale: Adult br2 ED Course: 05:09 Patient arrived in ED. jj6 05:11 Selwyn Perez MD is Attending Physician. rt 05:44 Patient has correct armband on for positive identification. Placed in gown. Bed in low ha1 position. Call light in reach. Side rails up X 1. 05:55 Triage completed. br2 05:55 Arm band placed on right wrist. br2 06:43 No provider procedures requiring assistance completed. Patient did not have IV access ha1 during this emergency room visit. 07:00 Report received from Torie Peters RN. kc6 07:00 Patient has correct armband on for positive identification. Placed in gown. Bed in low kc6 position. Call light in reach. Side rails up X 1. Pulse ox on. NIBP on. Door closed. Noise minimized. Lights dimmed. Warm blanket given. Pillow given. 07:00 Bladder irrigated via Guzman with 1 liter normal saline returned yellow urine Patient kc6 tolerated well. 07:54 Attending Physician role handed off by Selwyn Perez MD ec2 07:54 Segundo Esparza MD is Attending Physician. ec2 08:11 3-way catheter. hb 10:36 Provided Education on: Guzman bag use.. hb Administered Medications: No medications were administered Medication: 06:37 VIS not applicable for this client. ha1 Intake: 06:15 PO: 0ml; Total: 0ml. ha1 Output: 06:15 Urine: 2000ml (Guzman); Total: 2000ml. ha1 10:23 Urine: 1350ml (Guzman); Total: 3350ml. hb Outcome: 08:12 Discharge ordered by . ec2 08:48 Discharge ordered by . ec2 09:11 Discharge ordered by . ec2 10:16 Discharge ordered by . ec2 10:36 Discharged to home ambulatory, 10:36 Condition: good 10:36 Discharge instructions given to patient, Instructed on discharge instructions, follow up and referral plans. Demonstrated understanding of instructions, follow-up care, 10:36 Patient left the ED. Signatures: Abi Hooper RN RN Malika Driscoll jj6 Torie Peters RN RN ha1 Ivett Solorio RN RN kc6 Selwyn Perez MD MD rt Segundo Esparza MD MD ec2 Vidya León RN RN br2 Corrections: (The following items were deleted from the chart) 09:36 07:30 Reassessment: Resumed care of patient from Torie SANDS. Three way guzman catheter in hb place with leg bag attached, guzman clogged. Several large blood clots and copious amount of calderon colored sediment cleared with from line with saline via manual irrigation per protocl, bag changed to large urine collection bag and 3 L NS infusing by gravity. Pt tolerated well. Pt instructed to call for discomfort. Pt verbalized understanding of instructions. Dr. Perez and Dr. Esparza notified.
--- NOTE | 2024-03-15 08:13 | EDPHYS ---
Physician Documentation [facility] Name: Julius Perez Jr Age: 64 yrs Sex: Male : 1960 Arrival Date: 03/15/2024 Time: 05:06 Bed 8 Private MD: ED Physician Segundo Esparza HPI: 03/15 07:13 This 64 yrs old Male presents to ER via Ambulatory with complaints of Urinary rt Retention, Problem With Urinary Catheter. 07:13 Patient presents to the ED with urinary retention. Patient with three-way catheter was rt placed for gross hematuria. Has not drained any urine since about midnight. Reports of pain, fullness to the suprapubic region. Denies other acute complaints at this time, symptoms are moderate in severity, no other aggravating alleviating factors.. Historical: - Allergies: 05:55 No Known Allergies; br2 - PMHx: 05:55 diabetes mellitus; Hypercholesterolemia; Hypertensive disorder; br2 - Immunization history:: Adult Immunizations up to date. - Infectious Disease History:: Denies. - Social history:: Smoking status: Patient denies any tobacco usage or history of. Patient/guardian denies using alcohol, street drugs. - Family history:: not pertinent. ROS: 07:13 Constitutional: Negative for fever, chills, and weight loss, Cardiovascular: Negative rt for chest pain, palpitations, and edema, Respiratory: Negative for shortness of breath, cough, wheezing, and pleuritic chest pain, Abdomen/GI: Negative for abdominal pain, nausea, vomiting, diarrhea, and constipation, Skin: Negative for injury, rash, and discoloration, Neuro: Negative for headache, weakness, numbness, tingling, and seizure, 07:13 : Positive for Urinary tension, hematuria, Exam: 07:13 Constitutional: This is a well developed, well nourished patient who is awake, alert, rt and in no acute distress. Head/Face: Normocephalic, atraumatic. Chest/axilla: Normal chest wall appearance and motion. Nontender with no deformity. No lesions are appreciated. Cardiovascular: Regular rate and rhythm with a normal S1 and S2. No gallops, murmurs, or rubs. Normal PMI, no JVD. No pulse deficits. Respiratory: Lungs have equal breath sounds bilaterally, clear to auscultation and percussion. No rales, rhonchi or wheezes noted. No increased work of breathing, no retractions or nasal flaring. Skin: Warm, dry with normal turgor. Normal color with no rashes, no lesions, and no evidence of cellulitis. MS/ Extremity: Pulses equal, no cyanosis. Neurovascular intact. Full, normal range of motion. 07:13 Abdomen/GI: Fullness with tenderness to the suprapubic region, no other focal areas of tenderness, 07:13 : Three-way catheter in place with clear urine, scant amount of clot with sediment, Vital Signs: 05:53 BP 181 / 96; Pulse 108; Resp 18; Temp 98.4; Pulse Ox 94% ; Weight 88 kg; Height 5 ft. 8 br2 in. ; Pain 7/10; 06:20 BP 143 / 88; Pulse 95; Resp 18 S; Pulse Ox 98% on R/A; ha1 10:23 BP 176 / 96; Pulse 76; Resp 15; Pulse Ox 96% ; hb 05:53 Body Mass Index 29.50 (88.00 kg, 172.72 cm) br2 05:53 Pain Scale: Adult br2 MDM: 05:45 Medical Screening Exam initiated rt 07:13 Differential Diagnosis Clot, urinary retention, catheter malfunction. Data reviewed: rt vital signs, nurses notes. Test considered but Not performed: Other Details Patient recent CT scan, urinalysis, do not believe that these are needed at this time.. Care significantly affected by the following chronic conditions: Diabetes, Hypertension. Counseling: I had a detailed discussion with the patient and/or guardian regarding the historical points, exam findings, and any diagnostic results supporting the discharge/admit diagnosis, the need for outpatient follow up, to return to the emergency department if symptoms worsen or persist or if there are any questions or concerns that arise at home. ED course: Patient drained about 2000 cc of fluid after catheter was flushed. Bedside ultrasound shows that the bladder is empty. He does report a fullness sensation. There is still some sediment and clot. Patient is concerned that may get clogged. Will irrigate bladder then discharge.. 07:54 ED course: Patient signed out to me by previous physician, in brief arrives today with ec2 concern for clogged Alonso catheter. Plan is to irrigate and to discharge.. 03/15 05:51 Order name: Misc. Order: flush alonso; Complete Time: 06:30 rt 03/15 06:52 Order name: Bladder Irrigation; Complete Time: 07:56 rt Administered Medications: No medications were administered Disposition Summary: 03/15/24 10:16 Discharge Ordered Notes: Location: Home(03/15/24 10:16) ec2 Problem: new(03/15/24 10:16) ec2 Symptoms: have improved(03/15/24 10:16) ec2 Condition: Stable(03/15/24 10:16) ec2 Diagnosis - Urinary retention ec2 - Complication of indwelling Alonso catheter ec2 Followup: rt - With: Private Physician - When: 2 - 3 days - Reason: Forms: - Medication Reconciliation Form ec2 - Antibiotic Education ec2 - Prescription Opioid Use ec2 - Patient Portal Instructions ec2 - Leadership Thank You Letter ec2 Signatures: Selwyn Perez MD MD rt Segundo Esparza MD MD ec2 Vidya León RN RN br2 Corrections: (The following items were deleted from the chart) 08:48 08:12 Home ec2 ec2 08:48 08:12 new ec2 ec2 08:48 08:12 have improved ec2 ec2 08:48 08:12 Stable ec2 ec2 08:48 08:12 Urinary retention ec2 ec2 08:48 08:12 Complication of indwelling Alonso catheter ec2 ec2 09:11 08:48 Home ec2 ec2 09:11 08:48 new ec2 ec2 09:11 08:48 have improved ec2 ec2 09:11 08:48 Stable ec2 ec2 09:11 08:48 Urinary retention ec2 ec2 09:11 08:48 Complication of indwelling Alonso catheter ec2 ec2 10:16 09:11 Home ec2 ec2 10:16 09:11 new ec2 ec2 10:16 09:11 have improved ec2 ec2 10:16 09:11 Stable ec2 ec2 10:16 09:11 Urinary retention ec2 ec2 10:16 09:11 Complication of indwelling Alonso catheter ec2 ec2
[2024-03-15 10:41] VITALS: TEMP 98.4
[2024-03-15 10:43] VITALS: BP 176/96; O2SAT 96
== END 2024-03-15 10:36 | disposition home or self-care (01) ==
LOC: ER 05:06
DX: T83.098A Other mechanical complication of other urinary catheter, initial encounter (principal)
CPT/HCPCS: 51700; 99284

== ENCOUNTER 2024-03-26 02:50 | Inpatient (IN) | payer OTHER ==
[2024-03-26] MEDS ORDERED: NA CHLORIDE 0.9% 1,000 ML ONE (03:27)
[2024-03-26 03:51] LABS: PT Prothrombin Time 11.8 SECONDS (9.4-12.5); Protime INR 1.13
[2024-03-26 03:55] LABS: Absolute Basophils 0.1 K/uL (0-0.5); Absolute Eosinophils 0.1 K/uL (0-0.5); Absolute Lymphocytes (CBC) 1.5 K/uL (0.7-4.9); Absolute Monocytes 0.9 K/uL (0.1-1.3); Eosinophils % 0.9 % (0-4.4); Hematocrit 39.8 % (39.6-49.0); Hemoglobin 13.5 g/dL (13.6-17.9); Lymphocytes % 14.2 % (15.3-44.8); MCH 29.3 pg (27.0-35.0); MCV 86.2 fL (80-100); MPV 7.9 fL (7.6-11.3); Monocytes % 8.4 % (3.3-12.3); Neutrophils % 75.5 % (41.7-73.7); Platelets 343 thou/uL (152-406); RBC Red Blood Cell Count 4.62 M/uL (4.33-5.43)
[2024-03-26 04:05] LABS: Albumin 3.2 g/dL (3.4-5.0); Albumin/Globulin Ratio 0.8 (1.1-1.8); Anion Gap 8.7 mEq/L (5.0-15.0); Bilirubin Direct 0.2 mg/dL (0-0.2); Bilirubin Indirect, Calculated 0.6 mg/dL (0.2-0.8); Bilirubin Total 0.8 mg/dL (0.2-1.0); Globulin 4.1 g/dL (2.3-3.5); Magnesium 2.2 mg/dL (1.6-2.4); Potassium 3.7 mEq/L (3.5-5.1); Protein, Total 7.3 g/dL (6.4-8.2); Troponin High Sensitivity 31.5 pg/mL (<58.9)
--- NOTE | 2024-03-26 05:24 | RAD REPORT ---
EXAM: CT Head/Brain Without Contrast HISTORY: Syncope COMPARISON: None TECHNIQUE: Head/brain axial images acquired without contrast. Coronal and sagittal reformats created. Exam performed according to departmental dose-optimization program which includes automated exposure control, adjustment of mA and/or kV according to patient size, and/or use of iterative recon struction technique. FINDINGS: No midline shift, mass effect, intracranial hemorrhage, or hydrocephalus. Brain parenchyma unremarkable. Paranasal sinuses clear. Mastoid air cells clear. No skull fracture or significant skull lesion. IMPRESSION: Unremarkable CT head/brain without contrast. Electronically signed by: Esteban Greene MD 03/26/2024 05:21 AM [facility] Due to temporary technical issues with the PACS[employer] reporting system, reports are being esther d by the in-house radiologist without review as a courtesy to ensure prompt reporting the interpreting radiologist is fully responsible for the content of the report. Transcribed Date/Time: 03/26/2024 5:23 AM
--- NOTE | 2024-03-26 05:41 | ER ---
Nurse's Notes [facility] Name: Julius Perez Jr Age: 64 yrs Sex: Male : 1960 Arrival Date: 03/26/2024 Time: 02:50 Bed 18 Private MD: Diagnosis: Syncope and collapse Presentation: 03/26 03:20 Chief complaint: Patient states: SYNCOPAL EPISODE X2 WITH LOC AFTER GETTING UP GOING TO [facility] BATHROOM. FAMILY FOUND HIM ON THE FLOOR IN THE BATHROOM AND HE DOESN'T REMEMBER FALLING. Coronavirus screen: At this time, the client does not indicate any symptoms associated with coronavirus-19. Ebola Screen: No symptoms or risks identified at this time. Initial Sepsis Screen: Does the patient meet any 2 criteria? HR > 90 bpm. Yes Does the patient have a suspected source of infection? No. Patient's initial sepsis screen is negative. Risk Assessment: Do you want to hurt yourself or someone else? Patient reports no desire to harm self or others. Onset of symptoms was March 26, 2024. 03:20 Method Of Arrival: Ambulatory [facility] 03:20 Acuity: DENNIS 3 j7 Triage Assessment: 03:20 General: Appears in no apparent distress. comfortable, Behavior is calm, cooperative, j appropriate for age. Pain: Denies pain. Neuro: Reports a syncopal episode. : Guzman in place IN PLACE WHEN PT ARRIVED. Historical: - Allergies: 03:54 No Known Allergies; jj7 - PMHx: 03:54 diabetes mellitus; Hypercholesterolemia; Hypertensive disorder; jj7 - PSHx: 03:54 Tonsillectomy; LEFT ELBOW; jj7 - Immunization history:: Adult Immunizations up to date, . - Infectious Disease History:: Denies. - Social history:: Smoking status: Patient denies any tobacco usage or history of. Patient/guardian denies using alcohol, street drugs, IV drugs. - Family history:: not pertinent. Screenin:[facility] ED Fall Risk Assessment (Adult) History of falling in the last 3 months, [facility] including since admission Yes- single mechanical fall (1 pt) Confusion or Disorientation No (0 pts) Intoxicated or Sedated No (0 pts) Impaired Gait No (0 pts) Mobility Assist Device Used No (0 pt) Altered Elimination No (0 pt) Score/Fall Risk Level 0 - 2 = Low Risk Oriented to surroundings, Maintained a safe environment, Educated pt \T\ family on fall prevention, incl call for assistance when getting out of bed, Assessed \T\ reinforced patient's understanding of fall precautions. Abuse screen: Denies threats or abuse. Nutritional screening: No deficits noted. Tuberculosis screening: No symptoms or risk factors identified. Assessment: 03:20 Reassessment: SEE TRIAGE ASSESSMENT. [facility] 05:00 Reassessment: Patient is alert, oriented x 3, equal unlabored respirations, skin [facility] warm/dry/pink. Patient denies pain at this time. General: Appears in no apparent distress. comfortable, Behavior is calm, cooperative, appropriate for age. 06:00 Reassessment: No changes from previously documented assessment. Patient is alert, [facility] oriented x 3, equal unlabored respirations, skin warm/dry/pink. 07:00 Reassessment: No changes from previously documented assessment. Patient is alert, [facility] oriented x 3, equal unlabored respirations, skin warm/dry/pink. Patient denies pain at this time. 07:00 Reassessment: RECD REPORT FROM LORA RN. 64YO WM P/W SYNCOPAL FALL x2, H/O PERSISTENT bp INDWELLING GUZMAN. Vital Signs: 03:20 BP 111 / 70; Pulse 103; Resp 18; Temp 98.3; Pulse Ox 98% ; Weight 84.37 kg; Height 5 [facility] ft. 9 in. ; Pain 0/10; 04:00 BP 161 / 81; Pulse 63; Resp 19; Pulse Ox 97% ; [facility] 05:21 BP 157 / 84; Pulse 69; Resp 20; Pulse Ox 98% ; [facility] 06:00 BP 142 / 78; Pulse 89; Resp 17; Pulse Ox 97% ; [facility] 07:11 BP 127 / 72; Pulse 94; Resp 17; Pulse Ox 97% ; [facility] 03:20 Body Mass Index 27.47 (84.37 kg, 175.26 cm) [facility] 03:20 Pain Scale: Adult [facility] [place] Coma Score: 05:36 Eye Response: spontaneous(4). Motor Response: obeys commands(6). Verbal Response: sp4 oriented(5). Total: 15. NIH Stroke Scale Scores: 05:36 NIHSS Score: 0 sp4 ED Course: 02:55 Patient arrived in ED. gm2 02:58 Jesús Lagunas MD is Attending Physician. sp4 03:07 Danilo Marr, RN is Primary Nurse. jj7 03:20 Arm band placed on right wrist. Patient placed in an exam room, on a stretcher. jj7 03:20 Patient has correct armband on for positive identification. Bed in low position. Call jj7 light in reach. Side rails up X2. Adult w/ patient. Provided Education on: USE OF CALL GARCIA. 03:31 EKG done, by ED staff, reviewed by Jesús Lagunas MD. rk3 03:37 XRAY Chest (1 view) In Process Unspecified. EDMS 03:40 Initial lab(s) drawn, by ok, sent to lab. X-ray(s) taken. Inserted saline lock: 22 lg3 gauge in right antecubital area, using aseptic technique. Blood collected. Flushed with 10 mL NS. 03:40 Basic Metabolic Panel Sent. lg3 03:40 CBC with Diff Sent. lg3 03:40 LFT's Sent. lg3 03:40 Magnesium Sent. lg3 03:40 NT PRO-BNP Sent. lg3 03:40 PT-INR Sent. lg3 03:40 Troponin HS Sent. lg3 03:52 Triage completed. jj7 03:58 CT Head Brain wo Cont In Process Unspecified. EDMS 05:40 Franklin Castro MD is Hospitalizing Provider. sp4 07:31 Primary Nurse role handed off by Danilo Marr, RN bp 07:31 Sukhi Ascencio, RN is Primary Nurse. bp 07:46 Carotid Artery Bilateral In Process Unspecified. EDMS 09:34 No provider procedures requiring assistance completed. Patient admitted, IV remains in bp place. Administered Medications: 03:40 Drug: NS 0.9% IV 1000 ml IV at 1 bolus Per protocol; to be given as a bolus over 60 lg3 minutes Route: IV; Rate: 1 bolus; Site: right antecubital; 04:50 Follow up: IV Status: Completed infusion jj7 Medication: 03:20 VIS not applicable for this client. jj7 Outcome: 05:40 Decision to Hospitalize by Provider. sp4 09:34 Admitted to Med/surg family with patient, via wheelchair, room 430, with chart, bp 09:34 Condition: stable 09:34 Instructed on the need for admit, 09:35 Patient left the ED. bp NIH Stroke Scale - NIH Stroke Score Date: 03/26/2024 Time: 05:36 Total Score = 0 10. Dysarthria (speech clarity - read or repeat words) - 0(Normal) 11. Extinction and Inattention (visual/tactile/auditory/spatial/personal) - 0(No abnormality) 1a. Level of Consciousness (LOC) - 0(Alert) 1b. Level of Consciousness (LOC) (Month \T\ Age) - 0(Both) 1c. LOC Commands (Open \T\ Closes Eyes/Railroad Car Repairman) - 0(Both) 2. Best Gaze (Lateral Gaze Paresis) - 0(Normal) 3. Visual Field Loss - 0(No visual loss) 4. Facial Palsy - 0(Normal) 5a. Left Arm: Motor (10-second hold) - 0(No drift) 5b. Right Arm: Motor (10-second hold) - 0(No drift) 6a. Left Leg: Motor (5-second hold - always test supine) - 0(No drift) 6b. Right Leg: Motor (5-second hold - always test supine) - 0(No drift) 7. Limb Ataxia (finger/nose \T\ heel/oquendo - test with eyes open) - 0(Absent) 8. Sensory Loss (pinprick arms/legs/face) - 0(Normal) 9. Best Language: Aphasia (description/naming/reading) - 0(No aphasia) Initials: sp4 Signatures: Dispatcher [employer] EDSukhi Smith RN RN bp Sarah Perla RN RN lg3 Danilo Marr RN RN jj7 Jesús Lagunas MD MD sp4 Margarita Lima gm2 Mary Lou Zacarias rk3
--- NOTE | 2024-03-26 05:41 | EDPHYS ---
Physician Documentation [facility] Name: Julius Perez Jr Age: 64 yrs Sex: Male : 1960 Arrival Date: 03/26/2024 Time: 02:50 Bed 18 Private MD: ED Physician Jesús Lagunas HPI: 03/26 02:58 This 64 yrs old Male presents to ER via Unassigned with complaints of sp4 Syncope, Leg Pain. 05:36 64-year-old male past medical history diabetes hypercholesterolemia and hypertension sp4 presents with acute syncopal episode at home. Patient has indwelling Jaffe catheter. Patient was on a commode when he syncopized.. Historical: - Allergies: 03:54 No Known Allergies; jj7 - PMHx: 03:54 diabetes mellitus; Hypercholesterolemia; Hypertensive disorder; jj7 - PSHx: 03:54 Tonsillectomy; LEFT ELBOW; jj7 - Immunization history:: Adult Immunizations up to date, . - Infectious Disease History:: Denies. - Social history:: Smoking status: Patient denies any tobacco usage or history of. Patient/guardian denies using alcohol, street drugs, IV drugs. - Family history:: not pertinent. ROS: 05:36 Constitutional: Negative for fever, chills, and weight loss, positive syncopal episode sp4 05:36 All other systems are negative, Exam: 05:36 Constitutional: This is a well developed, well nourished patient who is awake, alert, sp4 and in no acute distress. Head/Face: Normocephalic, atraumatic. Eyes: Pupils equal round and reactive to light, extra-ocular motions intact. Lids and lashes normal. Conjunctiva and sclera are not injected. Cornea within normal limits. Periorbital areas with no swelling, redness, or edema. ENT: Nares patent. No nasal discharge, no septal abnormalities noted. Tympanic membranes are normal and external auditory canals are clear. Oropharynx with no redness, swelling, or masses, exudates, or evidence of obstruction, uvula midline. Mucous membranes moist. Neck: Trachea midline, no thyromegaly or masses palpated, and no cervical lymphadenopathy. Supple, full range of motion without nuchal rigidity, or vertebral point tenderness. Chest/axilla: Normal chest wall appearance and motion. Nontender with no deformity. No lesions are appreciated. Cardiovascular: Regular rate and rhythm with a normal S1 and S2. No gallops, murmurs, or rubs. Normal PMI, no JVD. No pulse deficits. Respiratory: Lungs have equal breath sounds bilaterally, clear to auscultation and percussion. No rales, rhonchi or wheezes noted. No increased work of breathing, no retractions or nasal flaring. Abdomen/GI: Soft, with normal bowel sounds. No distension or tympany. No guarding or rebound. No evidence of tenderness throughout. Back: No spinal tenderness. No costovertebral tenderness. Male : Normal genitalia with no discharge or lesions. Indwelling Jaffe catheter Skin: Warm, dry with normal turgor. Normal color with no rashes, no lesions, and no evidence of cellulitis. MS/ Extremity: Pulses equal, no cyanosis. Neurovascular intact. Full, normal range of motion. Neuro: Awake and alert, GCS 15, oriented to person, place, time, and situation. Cranial nerves II-XII grossly intact. Motor strength 5/5 in all extremities. Sensory grossly intact. Psych: Awake, alert, with orientation to person, place and time. Behavior, mood, and affect are within normal limits 05:38 ECG was reviewed by the Attending Physician. EKG 0 329 normal sinus rhythm rate 98 sp4 Vital Signs: 03:20 BP 111 / 70; Pulse 103; Resp 18; Temp 98.3; Pulse Ox 98% ; Weight 84.37 kg; Height 5 jj7 ft. 9 in. ; Pain 0/10; 04:00 BP 161 / 81; Pulse 63; Resp 19; Pulse Ox 97% ; j7 05:21 BP 157 / 84; Pulse 69; Resp 20; Pulse Ox 98% ; j7 06:00 BP 142 / 78; Pulse 89; Resp 17; Pulse Ox 97% ; j7 07:11 BP 127 / 72; Pulse 94; Resp 17; Pulse Ox 97% ; j7 03:20 Body Mass Index 27.47 (84.37 kg, 175.26 cm) [facility] 03:20 Pain Scale: Adult [facility] NIH Stroke Scale Scores: 05:36 NIHSS Score: 0 sp4 [place] Coma Score: 05:36 Eye Response: spontaneous(4). Motor Response: obeys commands(6). Verbal Response: sp4 oriented(5). Total: 15. MDM: 03:00 Medical Screening Exam initiated sp4 05:13 ED course: . sp4 05:35 ED course: FINDINGS: No midline shift, mass effect, intracranial hemorrhage, or sp4 hydrocephalus. Brain parenchyma unremarkable. Paranasal sinuses clear. Mastoid air cells clear. No skull fracture or significant skull lesion. IMPRESSION: Unremarkable CT head/brain without contrast. Electronically signed by: Esteban Greene MD 03/26/2024 05:21 AM. 05:38 Differential Diagnosis: cardiac arrhythmia, drug effect, idiopathic syncope, pseudo sp4 seizure, seizure, sepsis. Data reviewed: vital signs, nurses notes, lab test result(s), EKG, radiologic studies, CT scan, plain films. 05:44 ED course: PROCEDURE: XR Chest, 1 View CLINICAL INDICATION: The patient is 64 years old sp4 and is Male; Chest pain. TECHNIQUE: Frontal view of the chest. COMPARISON: None. FINDINGS: LUNGS: Relatively low lung volumes bilaterally. Allowing for this and patient positioning, no focal consolidation. PLEURAL SPACE: No appreciable pleural effusion or pneumothorax. MEDIASTINUM: Unremarkable cardiomediastinal contour. BONES/JOINTS: No acute osseous abnormality. IMPRESSION: Low lung volumes with no acute cardiopulmonary abnormality. . 03/26 03:00 Order name: Basic Metabolic Panel; Complete Time: 05:07 4 03/26 03:00 Order name: CBC with Diff; Complete Time: 05:07 [facility] 03/26 03:00 Order name: LFT's; Complete Time: 05:07 [facility] 03/26 03:00 Order name: Magnesium; Complete Time: 05:07 4 03/26 03:00 Order name: NT PRO-BNP; Complete Time: 05:07 4 03/26 03:00 Order name: PT-INR; Complete Time: 05:07 4 03/26 03:00 Order name: Troponin HS; Complete Time: 05:07 4 03/26 07:11 Order name: Magnesium EDCO 03/26 07:11 Order name: Phosphorus EDMS 03/26 07:11 Order name: T4 Free EDMS 03/26 07:11 Order name: Thyroid Stimulating Hormone EDCO 03/26 07:11 Order name: Urinalysis w/ reflexes EDCO 03/26 07:11 Order name: Basic Metabolic Panel EDMS 03/26 07:11 Order name: Basic Metabolic Panel EDMS 03/26 07:11 Order name: CBC with Automated Diff EDMS 03/26 07:11 Order name: CBC with Automated Diff EDMS 03/26 03:00 Order name: XRAY Chest (1 view) sp4 03/26 03:18 Order name: CT Head Brain wo Cont sp4 03/26 07:03 Order name: Echo with Doppler EDMS 03/26 07:03 Order name: ERT ORTHOSTATIC V/S EDMS 03/26 07:03 Order name: ERT ORTHOSTATIC V/S EDMS 03/26 07:03 Order name: ERT ORTHOSTATIC V/S EDMS 03/26 07:03 Order name: ERT ORTHOSTATIC V/S EDMS 03/26 07:03 Order name: Carotid Artery Bilateral EDMS 03/26 03:00 Order name: Cardiac monitoring; Complete Time: 03:31 sp4 03/26 03:00 Order name: EKG - Nurse/Tech; Complete Time: 03:31 sp4 03/26 03:00 Order name: IV Saline Lock; Complete Time: 03:40 sp4 03/26 03:00 Order name: Labs collected and sent; Complete Time: 03:40 sp4 03/26 03:00 Order name: O2 Per Protocol; Complete Time: 03:31 sp4 03/26 03:00 Order name: O2 Sat Monitoring; Complete Time: 03:31 sp4 EC:29 Rate is 98 beats/min. Rhythm is regular, Normal Sinus Rhythm. QRS [place] is Normal. [place] sp4 interval is normal. QRS interval is normal. QT interval is normal. No Q waves. T waves are Normal. No ST changes noted. Clinical impression: Normal ECG. Interpreted by me. Reviewed by me. Administered Medications: 03:40 Drug: NS 0.9% IV 1000 ml IV at 1 bolus Per protocol; to be given as a bolus over 60 lg3 minutes Route: IV; Rate: 1 bolus; Site: right antecubital; 04:50 Follow up: IV Status: Completed infusion jj7 Disposition Summary: 03/26/24 05:40 Hospitalization Ordered Notes: Hospitalization Status: Inpatient Admission sp4 Provider: Franklin Castro Location: Telemetry/[facility]Sur (Inpatient) sp4 Condition: Stable sp4 Problem: new sp4 Symptoms: have improved sp4 Bed/Room Type: Standard sp4 Room Assignment: 430(03/26/24 08:16) Diagnosis - Syncope and collapse sp4 Forms: - Medication Reconciliation Form sp4 - SBAR form sp4 - Leadership Thank You Letter sp4 NIH Stroke Scale - NIH Stroke Score Date: 03/26/2024 Time: 05:36 Total Score = 0 10. Dysarthria (speech clarity - read or repeat words) - 0(Normal) 11. Extinction and Inattention (visual/tactile/auditory/spatial/personal) - 0(No abnormality) 1a. Level of Consciousness (LOC) - 0(Alert) 1b. Level of Consciousness (LOC) (Month \T\ Age) - 0(Both) 1c. LOC Commands (Open \T\ Closes Eyes/Cut In Worker) - 0(Both) 2. Best Gaze (Lateral Gaze Paresis) - 0(Normal) 3. Visual Field Loss - 0(No visual loss) 4. Facial Palsy - 0(Normal) 5a. Left Arm: Motor (10-second hold) - 0(No drift) 5b. Right Arm: Motor (10-second hold) - 0(No drift) 6a. Left Leg: Motor (5-second hold - always test supine) - 0(No drift) 6b. Right Leg: Motor (5-second hold - always test supine) - 0(No drift) 7. Limb Ataxia (finger/nose \T\ heel/oquendo - test with eyes open) - 0(Absent) 8. Sensory Loss (pinprick arms/legs/face) - 0(Normal) 9. Best Language: Aphasia (description/naming/reading) - 0(No aphasia) Initials: sp4 Signatures: Dispatcher [employer] EDMS Viviane Hinton RN RN iw Able, Lacie, RN RN lg3 Danilo Marr RN RN jj7 Jesús Lagunas MD MD sp4 Corrections: (The following items were deleted from the chart) 03:00 03:00 BASIC METABOLIC PANEL+C.LAB.BRZ ordered. EDMS EDMS 03:00 03:00 CBC+H.LAB.BRZ ordered. EDMS EDMS 03:00 03:00 HEPATIC FUNCTION+C.LAB.BRZ ordered. EDMS EDMS 03:00 03:00 MAGNESIUM+C.LAB.BRZ ordered. EDMS EDMS 03:00 03:00 PROBNP+C.LAB.BRZ ordered. EDMS EDMS 03:00 03:00 PROTIME (+INR)+COAG.LAB.BRZ ordered. EDMS EDMS 03:00 03:00 Troponin High Sensitivity+C.LAB.BRZ ordered. EDMS EDMS 03:00 03:00 Chest Single View+RAD.RAD.BRZ ordered. EDMS EDMS 08:16 05:40 sp4 iw
--- NOTE | 2024-03-26 05:57 | RAD REPORT ---
PROCEDURE: XR Chest, 1 View CLINICAL INDICATION: The patient is 64 years old and is Male; Chest pain. TECHNIQUE: Frontal view of the chest. COMPARISON: None. FINDINGS: LUNGS: Relatively low lung volumes bilaterally. Allowing for this and patient positioning, no focal consolidation. PLEURAL SPACE: No appreciable pleural effusion or pneumothorax. MEDIASTINUM: Unremarkable cardiomediastinal contour. BONES/JOINTS: No acute osseous abnormality. IMPRESSION: Low lung volumes with no acute cardiopulmonary abnormality. Electronically signed by: Jean Pierre Yoder MD 03/26/2024 05:12 AM [facility] Due to temporary technical issues with the [employer] reporting system, reports are being esther d by the in-house radiologist without review as a courtesy to ensure prompt reporting the interpreting radiologist is fully responsible for the content of the report. Transcribed Date/Time: 03/26/2024 5:57 AM
[2024-03-26] MEDS ORDERED: HYDROCODONE/APAP 5/325 MG TAB ONE (06:39)
[2024-03-26] MEDS ORDERED: HYDROCODONE/APAP 10/325 TAB PO PRN (06:56)
[2024-03-26] MEDS ORDERED: ONDANSETRON 4 MG/2 ML VIAL IV PRN (07:04)
[2024-03-26] MEDS ORDERED: D10W 125 ML IV PRN (07:19)
[2024-03-26] MEDS ORDERED: GLUCAGON 1 MG/VIAL IM PRN (07:19)
[2024-03-26] MEDS: INSULIN REGULAR (HUMAN) 100 UNIT/ML SQ SCH (07:30)
--- NOTE | 2024-03-26 07:57 | RAD REPORT ---
EXAMINATION: US CAROTID DUPLEX CLINICAL INDICATION: , 64 years old. Syncope. TECHNIQUE: Real-time grayscale, color flow and spectral Doppler sonographic images were obtained of t extracranial carotid system using a linear transducer. [id number]. COMPARISON: No prior exam. FINDINGS: RIGHT: Common carotid artery: 74 cm/s Internal carotid artery: 73 cm/s External carotid artery: 95 cm/s Right ICA/CCA ratio: 1.0 Plaque Mild Noncalcified Vertebral artery Antegrade LEFT: Common carotid artery: 94 cm/s Internal carotid artery: 81 cm/s External carotid artery: 89 cm/s lEFT ICA/CCA ratio: 0.9 Plaque Moderate Noncalcified Vertebral artery Antegrade IMPRESSION: No hemodynamically significant stenosis (greater than 50%) within the extracranial internal carotid a [facility].
[2024-03-26 08:25] LABS: Magnesium 2.2 mg/dL (1.6-2.4); Phosphorus 3.7 mg/dL (2.5-4.9); Thyroid Stimulating Hormone 1.63 uIU/mL (0.358-3.740)
[2024-03-26 10:05] VITALS: O2SAT 98; BMI 3756.3
--- NOTE | 2024-03-26 13:18 | RAD REPORT ---
EXAMINATION: CT CHEST WITHOUT CONTRAST CLINICAL INDICATION: Male, 64 years old. Cough TECHNIQUE: Routine CT scan of the chest without intravenous contrast. One or more of the following do se reduction techniques were used: Automated exposure control, adjustment of the mA and/or kV according to patient size, and/or iterative reconstruction. Unless otherwise specified, incidental fi ndings do not require dedicated imaging follow-up. [id number]. COMPARISON: No prior exam. FINDINGS: LOWER NECK: Visualized thyroid gland and soft tissues are normal. LUNGS AND AIRWAYS: Airways are clear. No evidence of airspace or interstitial process.5 mm left lower lobe pulmonary nodule image 41, series 201. PLEURA: No pleural effusion. No pneumothorax. Hemidiaphragms are normally positioned. MEDIASTINUM AND LYMPH NODES: No mediastinal mass or fluid collection. Normal size mediastinal, hilar, and axillary lymph nodes. THORACIC AORTA: No thoracic aortic aneurysm. PULMONARY ARTERIES: Caliber is within normal limits. HEART: Normal heart size. Multivessel coronary artery diseaseTrace pericardial effusion. OSSEOUS STRUCTURES AND CHEST WALL: No fracture or suspicious osseous lesions. UPPER ABDOMEN: No acute abnormalities.Hepatic steatosis IMPRESSION: No acute findings in the chest. 5 mm left lower lobe pulmonary nodule. If the patient has significant risk factors for lung cancer, 1 2 month follow-up chest CT is recommended. If not, follow-up is optional.
[2024-03-26] MEDS: ATORVASTATIN 40 MG TAB PO SCH (20:36)
[2024-03-26] MEDS: HYDRALAZINE HCL 20 MG/ML VIAL IV PRN (20:50)
--- NOTE | 2024-03-27 03:25 | P.HP ---
Certification for Inpatient Patient admitted to: Observation With expected LOS: <2 Midnights Patient will require the following post-hospital care: None Practitioner: I am a practitioner with admitting privileges, knowledge of patient current condition, hospital course, and medical plan of care. Services: Services provided to patient in accordance with Admission requirements found in Title 42 Section 412.3 of the Code of Federal Regulations <Ike Bee - Last Filed: 03/27/24 03:52> Patient History Date of Service: 03/26/24 Reason for admission: Syncope History of Present Illness: Patient is a 64-year-old male with a past medical history significant for DM2, hyperlipidemia, hypertension, BPH who presents with complaint of syncope onset this morning. Patient reported that he woke up and noticed right lower extremity cramping. Patient went to use the bathroom and suddenly had a syncopal episode. Patient reported that he got up and shortly after had another syncopal episode. Patient denies hitting his head. Patient reported that he has been having episodes of cough for the past couple of days. Patient reported associated signs and symptoms of chills and diaphoresis. Patient denies any other signs and symptoms. Symptoms are aggravated or relieved by anything. Patient decided to present to the hospital for medical evaluation. Of note, patient recently had a Jaffe catheter placed at the [facility] due to urinary retention. - Past Medical/Surgical History Diabetic: Yes -: HTN -: DM 2 -: HLD -: BPH Past Surgical History: Reviewed- Non-Contributory - Family History Family History: Reviewed- Non-Contributory - Social History Smoking Status: Never smoker Alcohol use: No CD- Drugs: No Caffeine use: No Place of Residence: Home <Ike Bee Clem - Last Filed: 03/27/24 03:52> Date of Service: 03/26/24 <Franklin Castro - Last Filed: 04/18/24 04:12> Allergies No Known Allergies Allergy (Verified 03/13/24 04:51) Home Medications: Amlodipine [Norvasc*] 5 mg PO DAILY 03/26/24 Atorvastatin Calcium [Lipitor] 40 mg PO BEDTIME 03/26/24 Empagliflozin [Jardiance] 25 mg PO DAILY 03/26/24 Glipizide [Glucotrol Xl] 25 mg PO DAILY 03/26/24 Metformin ER [Glucophage ER*] 1,000 mg PO DAILY 03/26/24 Tamsulosin HCl [Flomax] 0.4 mg PO DAILY 03/26/24 Review of Systems General: Chills, Sweats Eyes: Unremarkable Respiratory: Cough Cardiovascular: Unremarkable Gastrointestinal: Unremarkable Genitourinary: Retention Musculoskeletal: Unremarkable Integumentary: Unremarkable Neurological: Unremarkable Lymphatics: Unremarkable <Ike Bee - Last Filed: 03/27/24 03:52> Physical Examination - Vital Signs Temperature: 98.9 F Blood Pressure: 154/81 Pulse: 93 Respirations: 16 Pulse Ox (%): 98 - Physical Exam General: Alert, In no apparent distress, Oriented x3 HEENT: Atraumatic, PERRLA, Mucous membr. moist/pink, EOMI, Sclerae nonicteric Neck: Supple, 2+ carotid pulse no bruit, No LAD, Without JVD or thyroid abnormality Respiratory: Clear to auscultation bilaterally, Normal air movement Cardiovascular: No edema, Regular rate/rhythm, Normal S1 S2 Capillary refill: <2 Seconds Gastrointestinal: Normal bowel sounds, Soft and benign, No tenderness Musculoskeletal: No clubbing, No tenderness Integumentary: No rashes Neurological: Normal gait, Normal speech, Normal strength at 5/5 x4 extr, Normal tone, Normal affect Lymphatics: No axilla or inguinal lymphadenopathy Urinary: Jaffe catheter - Studies Laboratory Data (last 24 hrs) 03/26/24 03/26/24 03/26/24 03:37 03:37 03:37 WBC 10.50 Hgb 13.5 L Hct 39.8 Plt Count 343 PT 11.8 INR 1.13 Sodium 135 L Potassium 3.7 BUN 19 H Creatinine 1.13 Glucose 285 H Magnesium 2.2 Total Bilirubin 0.8 AST 11 L ALT 22 Alkaline Phosphatase 131 H <Ike Bee - Last Filed: 03/27/24 03:52> Assessment and Plan - Plan Syncope. -- Echocardiogram pending to assess current structures and function. -- Carotid Doppler to rule out any carotid artery stenosis. -- We will get some orthostatic vital signs. -- CT head unremarkable for any acute intracranial abnormality. -- Neurologist and cardiology consulted. Recommendations appreciated. -- Telemetry to monitor for any malignant arrhythmia. Hyperlipidemia\BPH -- Continue home medications HTN --Poorly controlled. --Continue home medications -- Hydralazine as needed for SBP greater than 160 mmHg. DM2 --BS monitoring with sliding scale insulin Cough --CT chest pending for further evaluation. --Continue antitussives. DVT prophylaxis with Lovenox subQ Discharge Plan: Home Plan to discharge in: 48 Hours - Advance Directives Does patient have a Living Will: No Does patient have a Durable POA for Healthcare: No - Code Status/Comfort Care Code Status Assessed: Yes Code Status: Full Code Physician Review: Patient Assessed, Agree with Above Assessment and Plan Critical Care: No <Ike Bee - Last Filed: 03/27/24 03:52> Date of Service: 03/26/24 Chart has been reviewed. Events of the last 24 hours have been noted. Case discussed with ART. I performed a substantial part of the MDM during this patient's care today. I personally made or approved the documented management plan and acknowledge its risk of complications. I agree with the findings and documentation provided in the ART's notes <Franklin Castro - Last Filed: 04/18/24 04:12>
[2024-03-27 06:31] LABS: Absolute Basophils 0.1 K/uL (0-0.5); Absolute Eosinophils 0.1 K/uL (0-0.5); Absolute Lymphocytes (CBC) 2.6 K/uL (0.7-4.9); Absolute Monocytes 0.7 K/uL (0.1-1.3); Basophils % 0.7 % (0-1.3); Eosinophils % 1.6 % (0-4.4); Hematocrit 38.5 % (39.6-49.0); Lymphocytes % 30.8 % (15.3-44.8); MCH 29.5 pg (27.0-35.0); MCHC 33.8 g/dL (32.0-36.0); MCV 87.2 fL (80-100); MPV 7.4 fL (7.6-11.3); Monocytes % 8.5 % (3.3-12.3); Neutrophils % 58.4 % (41.7-73.7); Platelets 345 thou/uL (152-406); RBC Red Blood Cell Count 4.41 M/uL (4.33-5.43); Red Cell Distribution Width 12.8 % (12.1-15.2)
[2024-03-27 06:44] LABS: Anion Gap 10.4 mEq/L (5.0-15.0); Potassium 3.4 mEq/L (3.5-5.1)
[2024-03-27] MEDS: HOME MED 1 EA UNK (Empagliflozin [Jardiance] 25 MG Tablet) PO SCH (09:00)
[2024-03-27] MEDS: TAMSULOSIN 0.4 MG SR CAP PO SCH (09:05)
[2024-03-27 09:42] LABS: Sqamous Epithelial None Seen /HPF (None Seen); Urine Bacteria None Seen /HPF (<20); Urine Bilirubin NEGATIVE (Negative); Urine Blood 3+ (Negative); Urine Clarity Clear (Clear); Urine Color Light-Yellow (Yellow); Urine Culture Reflex Order REFLEXED; Urine Glucose 4+ (Over) (Negative); Urine Ketones 2+ (Negative); Urine Microscopic Reflex YN ORDER UMIC; Urine Mucus Slight /HPF (None Seen); Urine Nitrite NEGATIVE (Negative); Urine Protein NEGATIVE (Negative); Urine RBC >50 /HPF (None Seen); Urine Urobilinogen Normal (Normal)
[2024-03-27] MEDS: POTASSIUM CL SA 10 MEQ TAB PO ONE (11:03)
[2024-03-27] MEDS: ACETAMINOPHEN 325 MG TABLET PO PRN (11:04)
--- NOTE | 2024-03-27 11:54 | P.CNS ---
Date of Consult: 03/27/24 Chief Complaint: Syncope History of Present Illness: Patient with PMH of HTN, DM, Jaffe catheter insertion due to urinary retention, presented after he had a syncope in middle of night when he was trying to use the bathroom, report passing out for few seconds, denies any chest pain, no palpitations, no SOB, no FRANK. Allergies No Known Allergies Allergy (Verified 03/13/24 04:51) Home medications list reviewed: Yes Home Medications: Amlodipine [Norvasc*] 5 mg PO DAILY 03/26/24 Atorvastatin Calcium [Lipitor] 40 mg PO BEDTIME 03/26/24 Empagliflozin [Jardiance] 25 mg PO DAILY 03/26/24 Glipizide [Glucotrol Xl] 25 mg PO DAILY 03/26/24 Metformin ER [Glucophage ER*] 1,000 mg PO DAILY 03/26/24 Tamsulosin HCl [Flomax] 0.4 mg PO DAILY 03/26/24 - Past Medical/Surgical History Diabetic: Yes -: HTN -: DM 2 -: HLD -: BPH - Social History Alcohol use: No CD- Drugs: No Caffeine use: No Place of Residence: Home Review of Systems 10-point ROS is otherwise unremarkable Physical Examination Temp Pulse Resp BP Pulse Ox 98.0 F 105 H 16 145/70 H 98 03/27/24 08:00 03/27/24 08:00 03/27/24 08:00 03/27/24 08:00 03/27/24 08:00 General: Alert, In no apparent distress HEENT: Atraumatic, PERRLA, Mucous membr. moist/pink, EOMI, Sclerae nonicteric Neck: Supple, 2+ carotid pulse no bruit, No LAD, Without JVD or thyroid abnormality Respiratory: Clear to auscultation bilaterally, Normal air movement Cardiovascular: Regular rate/rhythm, Normal S1 S2 Gastrointestinal: Normal bowel sounds, No tenderness Musculoskeletal: No tenderness Integumentary: No rashes Neurological: Normal gait, Normal speech, Normal tone, Normal affect Lymphatics: No axilla or inguinal lymphadenopathy - Problems (1) Syncope Current Visit: Yes Status: Acute Plan: Patient tele was reviewed and shows sinus rhythm, no arrhythmia, no pauses. Echo shows normal EF, no valvular disease. EKG and cardiac enzymes are negative Carotid duplex is negative. most likely is neurocardiogenic syncope. start patient on lopressor 25 mg po BID advised patient to follow up with cardiology for event monitor. no further inpatient cardiac work up needed Cardiology will sign off, please call with any questions.
--- NOTE | 2024-03-27 13:12 | ECHO ---
HEIGHT: 0 ft 5.9 in WEIGHT: 186 lb 0 oz DATE OF STUDY: 03/27/[address]: Ike Bee 2-DIMENSIONAL: YES M.MODE: YES DOPPLER: YES COLOR FLOW: YES TDS: PORTABLE: YES DEFINITY: BUBBLE STUDY: DIAGNOSIS: SUNCOPE CARDIAC HISTORY: CATHERIZATION: NO SURGERY: NO PROSTHETIC VALVE: NO PACEMAKER: NO MEASUREMENTS (cm) DIASTOLIC (NORMALS) SYSTOLIC (NORMALS) IVSd 1.0 (0.6-1.2) LA Diam 3.3 (1.9-4.0) LVEF 60-65% LVIDd 4.7 (3.5-5.7) LVIDs 3.3 (2.0-3.5) %FS 30% LVPWd 1.1 (0.6-1.2) Ao Diam 3.2 (2.0-3.7) 2 DIMENSIONAL ASSESSMENT: RIGHT ATRIUM: NORMAL LEFT ATRIUM: NORMAL RIGHT VENTRICLE: NORMAL LEFT VENTRICLE: NORMAL TRICUSPID VALVE: NORMAL MITRAL VALVE: NORMAL PULMONIC VALVE: NORMAL AORTIC VALVE: NORMAL PERICARDIAL EFFUSION: NONE AORTIC ROOT: NORMAL LEFT VENTRICULAR WALL MOTION: NORMAL DOPPLER/COLOR FLOW: NORMAL COMMENTS: 1. MODERATE SEPTAL HYPERTROPHY (1.4 CENTIMETERS IN THICKNESS) 2. NORMAL LEFT VENTRICULAR SYSTOLIC FUNCTION, EJECTION FRACTION 60-65%, NORMAL WALL MOTION 3. NORMAL DIASTOLIC FUNCTION TECHNOLOGIST: FLORA CROCKETT
[2024-03-27 16:27] VITALS: BP 138/76; TEMP 98.1
--- NOTE | 2024-03-31 12:25 | EKG ---
Test Date: 2024-03-26 Test Time: 03:29:36 Balance Wheel Hand Filer: LISANDRO MEASUREMENT RESULTS: Intervals: Rate: 98 PA: 140 QRSD: 84 QT: 348 QTc: 444 [place]: P: 30 PA: 140 QRS: 14 T: 89 INTERPRETIVE STATEMENTS: Normal sinus rhythm Normal ECG Compared to ECG 03/12/2024 15:24:22 Myocardial infarct finding no longer present Electronically Signed On 03-31-24 12:16:17 JOB LITHOGRAPHER by Bonifacio Mckinney
--- NOTE | 2024-04-18 04:14 | P.DS ---
Discharge Date: 03/27/24 Disposition: ROUTINE DISCHARGE Discharge Condition: GOOD Reason for Admission: Syncope Brief History of Present Illness: Patient is a 64-year-old male with a past medical history significant for DM2, hyperlipidemia, hypertension, BPH who presents with complaint of syncope onset this morning. Patient reported that he woke up and noticed right lower extremity cramping. Patient went to use the bathroom and suddenly had a syncopal episode. Patient reported that he got up and shortly after had another syncopal episode. Patient denies hitting his head. Patient reported that he has been having episodes of cough for the past couple of days. Patient reported associated signs and symptoms of chills and diaphoresis. Patient denies any other signs and symptoms. Symptoms are aggravated or relieved by anything. Patient decided to present to the hospital for medical evaluation. Of note, patient recently had a Jaffe catheter placed at the [facility] due to urinary retention. Hospital Course: Patient is clinically doing well. Patient denies any new complaints. Respiratory status is stable. Patient is stable for discharge home with outpatient follow-up with PCP and outpatient follow-up with silver solution mixer in 1 to 2 weeks. Vital Signs/Physical Exam: Temp Pulse Resp BP Pulse Ox 98.1 F 103 H 16 138/76 97 03/27/24 16:00 03/27/24 16:00 03/27/24 16:00 03/27/24 16:00 03/27/24 16:00 General: Alert, In no apparent distress, Oriented x3 Laboratory Data at Discharge: WBC 8.60 thou/uL (4.3-10.9) 03/27/24 06:15 Hgb 13.0 g/dL (13.6-17.9) L 03/27/24 06:15 Hct 38.5 % (39.6-49.0) L 03/27/24 06:15 Plt Count 345 thou/uL (152-406) 03/27/24 06:15 PT 11.8 SECONDS (9.4-12.5) 03/26/24 03:37 INR 1.13 03/26/24 03:37 Sodium 135 mEq/L (136-145) L 03/27/24 06:15 Potassium 3.4 mEq/L (3.5-5.1) L 03/27/24 06:15 BUN 18 mg/dL (7-18) 03/27/24 06:15 Creatinine 0.90 mg/dL (0.70-1.30) 03/27/24 06:15 Glucose 149 mg/dL (74-106) H 03/27/24 06:15 Phosphorus 3.7 mg/dL (2.5-4.9) 03/26/24 07:47 Magnesium 2.2 mg/dL (1.6-2.4) 03/26/24 07:47 Total Bilirubin 0.8 mg/dL (0.2-1.0) 03/26/24 03:37 AST 11 U/L (15-37) L 03/26/24 03:37 ALT 22 U/L (16-61) 03/26/24 03:37 Alkaline Phosphatase 131 U/L (45-117) H 03/26/24 03:37 Home Medications: Amlodipine [Norvasc*] 5 mg PO DAILY 03/26/24 Atorvastatin Calcium [Lipitor] 40 mg PO BEDTIME 03/26/24 Empagliflozin [Jardiance] 25 mg PO DAILY 03/26/24 Glipizide [Glucotrol Xl] 25 mg PO DAILY 03/26/24 Metformin ER [Glucophage ER*] 1,000 mg PO DAILY 03/26/24 Tamsulosin HCl [Flomax] 0.4 mg PO DAILY 03/26/24 Physician Discharge Instructions: OK TO DC IV AND DC HOME FOLLOW-UP WITH PRIMARY CARE PROVIDER IN 1-2 WEEKS FOLLOW-UP WITH CARDIOLOGY IN 1-2 WEEKS RETURN TO THE ER IF Symptoms worsen CALL DR. EDGE AT [phone] IF ANY QUESTIONS REGARDING HOSPITAL STAY. PLEASE CALL THE FLOOR AT [phone] IF ANY MEDICATION OR NURSING QUESTIONS. Diet: AHA Activity: Fall precautions [facility]up: [facility] [Primary Care Provider] - Time spent managing pt's care (in minutes): 35
== END 2024-03-27 13:55 | disposition home or self-care (01) | DRG 312 ==
LOC: ER 02:50 → ERHOLD 07:04 → 4TH 08:29
PROVIDERS: ADMIT Hospitalist; ATTEND Hospitalist
PROC: 0T9B70Z Drainage of Bladder with Drainage Device, Via Natural or Artificial Opening (ICD-10-PCS; principal; 2024-03-26)
DX: R55 Syncope and collapse (principal); E11.9 Type 2 diabetes mellitus without complications; Z79.4 Long term (current) use of insulin; E78.5 Hyperlipidemia, unspecified; I10 Essential (primary) hypertension; N40.0 Benign prostatic hyperplasia without lower urinary tract symptoms
CPT/HCPCS: 36415; 70450; 71045; 71250; 80048; 80076; 81001; 82947; 83036; 83735; 83880; 84100; 84439; 84443; 84484; 85025; 85610; 87086; 87088; 93005; 93306; 93880; 96360; 99285; J0360; J7030

== ENCOUNTER 2024-08-30 19:19 | Inpatient (IN) | payer OTHER ==
[2024-08-30] MEDS ORDERED: CEFTRIAXONE 1000 MG/VIAL ONE (20:03)
[2024-08-30] MEDS ORDERED: MORPHINE 2 MG/ML SYR ONE (20:03)
[2024-08-30] MEDS ORDERED: ONDANSETRON 4 MG/2 ML VIAL ONE (20:03)
[2024-08-30] MEDS ORDERED: NA CHLORIDE 0.9% 1,000 ML ONE ×2 (20:04→22:59)
[2024-08-30] MEDS ORDERED: MORPHINE 4 MG/ML SYR ONE ×2 (20:04→23:11)
[2024-08-30 20:05] LABS: Sqamous Epithelial None Seen /HPF (None Seen); Urine Culture Reflex Order REFLEXED; Urine Microscopic Reflex YN ORDER UMIC; Urine WBC Clump Few /HPF (None Seen)
[2024-08-30] MEDS ORDERED: NA CHLORIDE 0.9% 50 ML ONE (20:05)
[2024-08-30] MEDS ORDERED: METRONIDAZOLE 500mg IVPB 500 MG/100 ML BAG IV ONE (20:05)
[2024-08-30 20:33] LABS: Absolute Lymphocytes (CBC) 1.1 K/uL (0.7-4.9); Hematocrit 33.8 % (39.6-49.0); Hemoglobin 11.0 g/dL (13.6-17.9); MCH 26.5 pg (27.0-35.0); MCHC 32.5 g/dL (32.0-36.0); MCV 81.6 fL (80-100); MPV 6.9 fL (7.6-11.3); Nucleated RBC Absolute Count 0.0 (0-0); Nucleated Red Blood Cells % 0.1 % (0-0); RBC Red Blood Cell Count 4.14 M/uL (4.33-5.43); White Blood Count 15.70 thou/uL (4.3-10.9)
[2024-08-30 20:52] LABS: ALT/SGPT 22 U/L (16-61); Albumin 3.1 g/dL (3.4-5.0); Albumin/Globulin Ratio 0.6 (1.1-1.8); Alkaline Phosphatase 217 U/L (45-117); Anion Gap 11.4 mEq/L (5.0-15.0); BUN Blood Urea Nitrogen 21 mg/dL (7-18); Globulin 5.1 g/dL (2.3-3.5); Lipase 21 U/L (13-75); Potassium 3.4 mEq/L (3.5-5.1)
[2024-08-30 20:54] LABS: AST/SGOT < 10 U/L (15-37)
[2024-08-30 20:55] LABS: Glucose Level 610 mg/dL (74-106)
[2024-08-30] MEDS ORDERED: INSULIN REGULAR (HUMAN) 100 UNIT/ML ONE (21:39)
--- NOTE | 2024-08-30 21:50 | RAD REPORT ---
EXAMINATION: CT ABDOMEN AND PELVIS WITHOUT CONTRAST CLINICAL INDICATION: Abdominal pain right flank pain TECHNIQUE: CT abdomen and pelvis was performed, as per department protocol. IV contrast and oral was not administered.Axial, sagittal and coronal reconstructions were obtained. One or more of the following dose reduction techniques were used: Automated exposure control, adjustment of the mA and/o r kV according to the patient size, and/or iterative reconstruction. Unless otherwise specified, incidental findings do not require dedicated imaging follow-up. [id number]. COMPARISON: March 2024. FINDINGS: The lack of intravenous and oral contrast limits evaluation of solid organs, vessels and bowel. 5 mm left lower lobe nodule unchanged. The liver, spleen, pancreas, and adrenals grossly normal. Moderate bilateral hydronephrosis and hydroureter. Air is present within the right renal pelvis and r ight calyces. An air bubbles present within the left renal calyx. Air is present within the bladder. Bladder wall mildly to moderately thickened. Bladder is mildly distended. Marked enlargement prostate gland. Small inguinal hernias containing fat. No evidence of diverticulitis IMPRESSION: Air in the bladder, right renal pelvis, right calyces and left calyx. This may indicate emphysematous cystitis/pyelonephritis Marked prostatic enlargement with mild bladder distention. Moderate bilateral hydronephrosis without visualization of a genitourinary calculus. This may be the sequela of the bladder distention or vesicoureteral reflux. 5 mm nodule stable since March 2024. Per Fleischner recommendations low-risk patients: no routine follow-up required high-risk patients: optional CT at 12 months
--- NOTE | 2024-08-30 22:33 | EDPHYS ---
Physician Documentation [facility] Name: Julius Perez Jr Age: 64 yrs Sex: Male : 1960 Arrival Date: 08/30/2024 Time: 19:19 Bed IW10 Private MD: ED Physician Jesús Lagunas HPI: 08/30 19:24 This 64 yrs old Other Race Male presents to ER via Unassigned with complaints of sp4 Vomiting, Low Back Pain, Urinary Problem. 08/31 19:19 Patient presents with complaint of bladder pain, back pain, hematuria, also vomiting sp4 and low back pain.. Patient has prostatic megaly he practices self catheterizations at home 3 times a day.. Historical: - Allergies: 08/30 19: No Known Allergies; bm8 - PMHx: 19:31 diabetes mellitus; Hypertensive disorder; Hypercholesterolemia; bm8 - PSHx: 19:31 left elbow; Tonsillectomy; bm8 - Immunization history:: Adult Immunizations up to date. - Infectious Disease History:: Denies. - Social history:: Smoking status: Patient denies any tobacco usage or history of. Patient/guardian denies using alcohol, street drugs. - Family history:: not pertinent. ROS: 08/31 19:19 Constitutional: Negative for fever, chills, and weight loss, positive back pain, sp4 positive pelvic pain, positive hematuria. Positive vomiting All other systems are negative, Exam: 19:19 Constitutional: This is a well developed, well nourished patient who is awake, alert, sp4 and in no acute distress. Head/Face: Normocephalic, atraumatic. Eyes: Pupils equal round and reactive to light, extra-ocular motions intact. Lids and lashes normal. Conjunctiva and sclera are not injected. Cornea within normal limits. Periorbital areas with no swelling, redness, or edema. ENT: Nares patent. No nasal discharge, no septal abnormalities noted. Tympanic membranes are normal and external auditory canals are clear. Oropharynx with no redness, swelling, or masses, exudates, or evidence of obstruction, uvula midline. Mucous membranes moist. Neck: Trachea midline, no thyromegaly or masses palpated, and no cervical lymphadenopathy. Supple, full range of motion without nuchal rigidity, or vertebral point tenderness. Chest/axilla: Normal chest wall appearance and motion. Nontender with no deformity. No lesions are appreciated. Cardiovascular: Regular rate and rhythm with a normal S1 and S2. No gallops, murmurs, or rubs. No pulse deficits. Respiratory: Lungs have equal breath sounds bilaterally, clear to auscultation and percussion. No rales, rhonchi or wheezes noted. No increased work of breathing, no retractions or nasal flaring. Abdomen/GI: Soft, with normal bowel sounds. No distension or tympany. No guarding or rebound. No evidence of tenderness throughout. Back: No spinal tenderness. No costovertebral tenderness. Skin: Warm, dry with normal turgor. Normal color with no rashes, no lesions, and no evidence of cellulitis. MS/ Extremity: Pulses equal, no cyanosis. Neurovascular intact. Full, normal range of motion. Neuro: Awake and alert, GCS 15, oriented to person, place, time, and situation. Cranial nerves II-XII grossly intact. Motor strength 5/5 in all extremities. Sensory grossly intact. Psych: Awake, alert, with orientation to person, place and time. Behavior, mood, and affect are within normal limits Vital Signs: 08/30 19:29 BP 157 / 87; Pulse 108; Resp 17; Temp 98.7; Pulse Ox 100% ; Weight 77.11 kg; Height 5 bm8 ft. 9 in. ; Pain 9/10; 20:58 BP 159 / 93; Pulse 91; Resp 20; Pulse Ox 100% ; kj2 21:50 BP 168 / 91; Pulse 90; Resp 20; Pulse Ox 100% ; kj2 23:54 BP 165 / 88; Pulse 90; Resp 20; Temp 98.7; Pulse Ox 100% on R/A; kj2 19:29 Body Mass Index 25.10 (77.11 kg, 175.26 cm) bm8 19:29 Pain Scale: Adult bm8 [place] Coma Score: 08/31 19:19 Eye Response: spontaneous(4). Motor Response: obeys commands(6). Verbal Response: sp4 oriented(5). Total: 15. MDM: 08/30 19:25 Medical Screening Exam initiated sp4 22:30 ED course: EXAMINATION: CTABDOMEN AND PELVIS WITHOUT CONTRAST CLINICAL INDICATION: sp4 Abdominal pain right flank pain TECHNIQUE: CT abdomen and pelvis was performed, as per department protocol. IV contrast and oral was not administered.Axial, sagittal and coronal reconstructions were obtained. One or more of the following dose reduction techniques were used: Automated exposure control, adjustment of the mA and/or kV according to the patient size, and/or iterative reconstruction. Unless otherwise specified, incidental findings do not require dedicated imaging follow-up. [id number]. COMPARISON: March 2024. FINDINGS: The lack of intravenous and oral contrast limits evaluation of solid organs, vessels and bowel. 5 mm left lower lobe nodule unchanged. The liver, spleen, pancreas, and adrenals grossly normal. Moderate bilateral hydronephrosis and hydroureter. Air is present within the right renal pelvis and right calyces. An air bubbles present within the left renal calyx. Air is present within the bladder. Bladder wall mildly to moderately thickened. Bladder is mildly distended. Marked enlargement prostate gland. Small inguinal hernias containing fat. No evidence of diverticulitis IMPRESSION: Air in the bladder, right renal pelvis, right calyces and left calyx. This may indicate emphysematous cystitis/pyelonephritis Marked prostatic enlargement with mild bladder distention. Moderate bilateral hydronephrosis without visualization of a genitourinary calculus. This may be the sequela of the bladder distention or vesicoureteral reflux. 5 mm nodule stable since March 2024. Per Fleischner recommendations low-risk patients: no routine follow-up required high-risk patients: optional CT at 12 months . 08/31 19:19 Differential diagnosis: Nonspecific abd pain, gastritis, viral gastroenteritis, sp4 gastroenteritis. Data reviewed: vital signs, nurses notes, old medical records, lab test result(s), radiologic studies, CT scan. 19:21 ED course: Sepsis reevaluation completed. Patient was given septic fluid bolus. 30 mL sp4 per cake septic fluid bolus was given. Based on the patient's weight patient received total of 3 L of IV fluids. Patient has been given Jaffe catheter to decompress urinary bladder. 08/30 19:25 Order name: CBC with Diff; Complete Time: 20:58 sp4 08/30 19:25 Order name: CMP; Complete Time: 20:58 sp4 08/30 19:25 Order name: Lipase; Complete Time: 20:58 sp4 08/30 19:25 Order name: UA Rfx Carl Cult if indicated; Complete Time: 20:58 4 08/30 19:35 Order name: Blood Culture Adult (2) [facility] 08/30 20:12 Order name: Urine Culture [facility] 08/30 22:27 Order name: BMP 4 08/30 23:27 Order name: UA Rfx Carl Cult if indicated EDMS 08/30 23:27 Order name: CBC with Automated Diff EDMS 08/30 23:27 Order name: CBC with Automated Diff EDMS 08/30 23:27 Order name: CBC with Automated Diff EDMS 08/30 23:27 Order name: CBC with Automated Diff EDMS 08/30 23:27 Order name: Comprehensive Metabolic Panel EDMS 08/30 23:27 Order name: Comprehensive Metabolic Panel EDMS 08/30 23:27 Order name: Comprehensive Metabolic Panel EDMS 08/30 23:27 Order name: Comprehensive Metabolic Panel EDMS 08/30 23:27 Order name: Magnesium EDMS 08/30 23:27 Order name: Magnesium EDMS 08/30 23:27 Order name: Magnesium EDMS 08/30 23:27 Order name: Magnesium EDMS 08/31 00:01 Order name: Glucose, Ancillary Testing; Complete Time: 00:05 EDMS 08/30 21:11 Order name: Abdomen ; Complete Time: 21:57 EDVA 08/30 19:25 Order name: IV Saline Lock; Complete Time: 19:55 4 08/30 19:25 Order name: Labs collected and sent; Complete Time: 19:55 [facility] 08/30 22:35 Order name: Jaffe; Complete Time: 23:45 sp4 Administered Medications: 08/30 20:16 Drug: Rocephin - Rocephin (cefTRIAXone) IVPB 1 grams IVPB once over 30 mins; (mix in 50 kj2 mL NS) Route: IVPB; Infused Over: 30 mins; Site: right antecubital; 20:47 Follow up: IV Status: Completed infusion; IV Intake: 50ml kj2 20:17 Drug: Ondansetron IVP 8 mg IVP once; over 2 minutes Route: IVP; Site: right antecubital;kj2 20:17 Drug: NS 0.9% IV 1000 ml IV at 1 bolus Per protocol; to be given as a bolus over 60 kj2 minutes Route: IV; Rate: 1 bolus; Site: right antecubital; 20:17 Drug: morphine IVP or IV 6 mg IVP once over 4 mins Route: IVP; Infused Over: 4 mins; kj2 Site: right antecubital; 08/31 00:33 Follow up: Response: No adverse reaction 2 08/30 20:47 Drug: metroNIDAZOLE IVPB 500 mg 100 ml IVPB at 200 ml/hr once over 30 mins Volume: 100 kj2 ml; Route: IVPB; Rate: 200 ml/hr; Infused Over: 30 mins; Site: right antecubital; 21:43 Drug: Insulin Regular Human IVP 10 units IVP once {Co-Signature: ss12 (Rancho, kj2 Rancho RN).} Route: IVP; Site: right antecubital; 08/31 00:33 Follow up: Response: No adverse reaction 08/30 21:43 Drug: NS 0.9% IV 1000 ml IV at 1000 ml once; to be given as a bolus over 60 minutes kj2 Route: IV; Rate: 1000 ml; Site: right antecubital; 22:24 Drug: NS 0.9% IV 1000 ml IV at 250 ml/hr once; to be given at 250 ml/hour Route: IV; kj2 Rate: 250 ml/hr; Site: right antecubital; 23:50 Drug: metoCLOPramide IVP 10 mg IVP once; over 1 to 2 minutes Route: IVP; Site: right kj antecubital; 08/31 00:32 Follow up: Response: No adverse reaction 08/30 23:51 Drug: Piperacillin-Tazobactam IVPB 3.375 grams IVPB once over 60 mins; (mix in NS 100 kj2 mL) Route: IVPB; Infused Over: 60 mins; Site: right antecubital; 08/31 00:33 Follow up: IV Status: Completed infusion; IV Intake: 100ml 2 08/30 23:51 Drug: morphine IVP or IV 4 mg IVP once over 4 mins Route: IVP; Infused Over: 4 mins; kj2 Site: right antecubital; 08/31 00:32 Follow up: Response: No adverse reaction kj2 Disposition Summary: 08/30/24 22:33 Hospitalization Ordered Notes: Hospitalization Status: Inpatient Admission sp4 Provider: Abdiel Wallace sp4 [facility] sp4 Condition: Stable sp4 Problem: new sp4 Symptoms: have improved sp4 Bed/Room Type: Standard sp4 Room Assignment: 213(08/30/24 23:27) sp Diagnosis - Acute pyelonephritis, acute emphysematous cystitis, acute hemorrhagic cystitis, sp4 hyperglycemia associated with diabetes mellitus type 2 - Severe sepsis without septic shock sp4 - Acute renal insufficiency sp4 Forms: - Medication Reconciliation Form sp4 - SBAR form sp4 - Leadership Thank You Letter sp4 Critical care time excluding procedures: 08/30 22:33 Critical care time: Bedside Care: 36 minutes, Consultation: 12 minutes, Family sp4 Intervention: 12 minutes. Total time: 60 minutes Signatures: Dispatcher [employer] EDLisa Atkins Sergey, MD MD sp4 Nilesh Baer RN RN bm8 Katey Gilmore, RN RN kj2 Rancho Vickers RN ss12 Corrections: (The following items were deleted from the chart) 19:35 19:35 BLOOD CULTURE*+BA.LAB.BRZ ordered. EDMS EDMS 21:11 19:34 Abdomen Pelvis W Con+CT.RAD.BRZ ordered. EDMS EDMS 22:27 22:27 BASIC METABOLIC PANEL+C.LAB.BRZ ordered. EDMS EDMS 23:27 22:33 sp4 sp
--- NOTE | 2024-08-30 22:33 | ER ---
Nurse's Notes [facility] Name: Julius Perez Jr Age: 64 yrs Sex: Male : 1960 Arrival Date: 08/30/2024 Time: 19:19 Bed IW10 Private MD: Diagnosis: Acute pyelonephritis, acute emphysematous cystitis, acute hemorrhagic cystitis, hyperglycemia associated with diabetes mellitus type 2;Severe sepsis without septic shock;Acute renal insufficiency Presentation: 08/30 19:29 Chief complaint: Patient states: I have been urinating blood for 2-3 days, have pain in bm8 my right flank, and i have to cath myself. Coronavirus screen: At this time, the client does not indicate any symptoms associated with coronavirus-19. Ebola Screen: Patient negative for fever greater than or equal to 101.5 degrees Fahrenheit, and additional compatible Ebola Virus Disease symptoms Patient denies exposure to infectious person. Patient denies travel to an Ebola-affected area in the 21 days before illness onset. No symptoms or risks identified at this time. Initial Sepsis Screen: Does the patient meet any 2 criteria? No. Patient's initial sepsis screen is negative. Does the patient have a suspected source of infection? No. Patient's initial sepsis screen is negative. Risk Assessment: Do you want to hurt yourself or someone else? Patient reports no desire to harm self or others. Onset of symptoms was August 27, 2024. 19:29 Method Of Arrival: Ambulatory bm8 19:29 Acuity: DENNIS 2 bm8 Triage Assessment: 19:31 General: Appears in no apparent distress. uncomfortable, Behavior is calm, cooperative, bm8 appropriate for age. Pain: Complains of pain in right mid back and right low back Pain currently is 9 out of 10 on a pain scale. EENT: No deficits noted. Neuro: No deficits noted. Cardiovascular: No deficits noted. Respiratory: No deficits noted. GI: Reports nausea, vomiting. : Reports pain in right flank(s), bloody urine. Derm: No signs and/or symptoms reported regarding the dermatologic system. Musculoskeletal: No signs and/or symptoms reported regarding the musculoskeletal system. Historical: - Allergies: 19:31 No Known Allergies; bm8 - PMHx: 19:31 diabetes mellitus; Hypertensive disorder; Hypercholesterolemia; bm8 - PSHx: 19:31 left elbow; Tonsillectomy; bm8 - Immunization history:: Adult Immunizations up to date. - Infectious Disease History:: Denies. - Social history:: Smoking status: Patient denies any tobacco usage or history of. Patient/guardian denies using alcohol, street drugs. - Family history:: not pertinent. Screenin:40 [facility] ED Fall Risk Assessment (Adult) History of falling in the last 3 months, kj2 including since admission No falls in past 3 months (0 pts) Confusion or Disorientation No (0 pts) Intoxicated or Sedated No (0 pts) Impaired Gait No (0 pts) Mobility Assist Device Used No (0 pt) Altered Elimination No (0 pt) Score/Fall Risk Level 0 - 2 = Low Risk Maintained a safe environment, Hourly rounding (assess needs \T\ fall precautionary measures) done. Abuse screen: Denies threats or abuse. Denies injuries from another. Nutritional screening: No deficits noted. Tuberculosis screening: No symptoms or risk factors identified. Assessment: 19:40 General: Appears in no apparent distress. Behavior is cooperative. Pain: Complains of kj2 pain in right low back and right mid back Pain currently is 8 out of 10 on a pain scale. Neuro: Level of Consciousness is awake, alert, obeys commands, Oriented to person, place, time, situation. Cardiovascular: Patient's skin is warm and dry. Respiratory: Airway is patent Respiratory effort is unlabored. GI: No signs and/or symptoms were reported involving the gastrointestinal system. Abdomen is non-distended. : Urine is blood tinged. 20:50 Reassessment: Patient appears in no apparent distress at this time. Patient and/or kj2 family updated on plan of care and expected duration. Pain level reassessed. Patient is alert, oriented x 3, equal unlabored respirations, skin warm/dry/pink. 21:50 Reassessment: Patient appears in no apparent distress at this time. Patient and/or kj2 family updated on plan of care and expected duration. Pain level reassessed. Patient is alert, oriented x 3, equal unlabored respirations, skin warm/dry/pink. 22:50 Reassessment: Patient appears in no apparent distress at this time. Patient and/or kj2 family updated on plan of care and expected duration. Pain level reassessed. Patient is alert, oriented x 3, equal unlabored respirations, skin warm/dry/pink. 23:50 Reassessment: Patient appears in no apparent distress at this time. Patient and/or kj2 family updated on plan of care and expected duration. Pain level reassessed. Patient is alert, oriented x 3, equal unlabored respirations, skin warm/dry/pink. Vital Signs: 19:29 BP 157 / 87; Pulse 108; Resp 17; Temp 98.7; Pulse Ox 100% ; Weight 77.11 kg; Height 5 bm8 ft. 9 in. ; Pain 9/10; 20:58 BP 159 / 93; Pulse 91; Resp 20; Pulse Ox 100% ; kj2 21:50 BP 168 / 91; Pulse 90; Resp 20; Pulse Ox 100% ; kj2 23:54 BP 165 / 88; Pulse 90; Resp 20; Temp 98.7; Pulse Ox 100% on R/A; kj2 19:29 Body Mass Index 25.10 (77.11 kg, 175.26 cm) bm8 19:29 Pain Scale: Adult bm8 [place] Coma Score: 08/31 19:19 Eye Response: spontaneous(4). Motor Response: obeys commands(6). Verbal Response: sp4 oriented(5). Total: 15. ED Course: 08/30 19:20 Patient arrived in ED. im 19:24 Jesús Lagunas MD is Attending Physician. sp4 19:31 Triage completed. bm8 19:31 Arm band placed on right wrist. bm8 19:40 Patient has correct armband on for positive identification. Bed in low position. Call kj2 light in reach. Adult w/ patient. Provided Education on: call light. 19:50 Initial lab(s) drawn, by hi, sent to lab. First set of blood cultures drawn by me, vk Urine collected: clean catch specimen, mariann colored. 19:55 CBC with Diff Sent. vk 19:55 CMP Sent. vk 19:55 UA Rfx Carl Cult if indicated Sent. vk 19:55 Inserted saline lock: 20 gauge in right antecubital area, using aseptic technique. vk Blood collected. Flushed with 10 mL NS. 19:56 Katey Gilmore, RN is Primary Nurse. kj2 20:05 Second set of blood cultures drawn by me. vk 20:28 Urine Culture Sent. vk 20:28 Blood Culture Adult (2) Sent. vk 21:12 Abdomen In Process Unspecified. EDMS 22:31 Abdiel Wallace, RN is Hospitalizing Provider. sp4 23:45 Coud inserted, using sterile technique, 12 Fr. Returned clear yellow urine. To gravity vk drainage. Clamped. 08/31 00:48 No provider procedures requiring assistance completed. Patient admitted, IV remains in vc1 place. Administered Medications: 08/30 20:16 Drug: Rocephin - Rocephin (cefTRIAXone) IVPB 1 grams IVPB once over 30 mins; (mix in 50 kj2 mL NS) Route: IVPB; Infused Over: 30 mins; Site: right antecubital; 20:47 Follow up: IV Status: Completed infusion; IV Intake: 50ml kj2 20:17 Drug: Ondansetron IVP 8 mg IVP once; over 2 minutes Route: IVP; Site: right antecubital;kj2 20:17 Drug: NS 0.9% IV 1000 ml IV at 1 bolus Per protocol; to be given as a bolus over 60 kj2 minutes Route: IV; Rate: 1 bolus; Site: right antecubital; 20:17 Drug: morphine IVP or IV 6 mg IVP once over 4 mins Route: IVP; Infused Over: 4 mins; kj2 Site: right antecubital; 08/31 00:33 Follow up: Response: No adverse reaction 08/30 20:47 Drug: metroNIDAZOLE IVPB 500 mg 100 ml IVPB at 200 ml/hr once over 30 mins Volume: 100 kj2 ml; Route: IVPB; Rate: 200 ml/hr; Infused Over: 30 mins; Site: right antecubital; 21:43 Drug: Insulin Regular Human IVP 10 units IVP once {Co-Signature: ss12 (Rancho, kj2 Rancho RN).} Route: IVP; Site: right antecubital; 08/31 00:33 Follow up: Response: No adverse reaction 08/30 21:43 Drug: NS 0.9% IV 1000 ml IV at 1000 ml once; to be given as a bolus over 60 minutes kj2 Route: IV; Rate: 1000 ml; Site: right antecubital; 22:24 Drug: NS 0.9% IV 1000 ml IV at 250 ml/hr once; to be given at 250 ml/hour Route: IV; kj2 Rate: 250 ml/hr; Site: right antecubital; 23:50 Drug: metoCLOPramide IVP 10 mg IVP once; over 1 to 2 minutes Route: IVP; Site: right kj2 antecubital; 08/31 00:32 Follow up: Response: No adverse reaction kj2 08/30 23:51 Drug: Piperacillin-Tazobactam IVPB 3.375 grams IVPB once over 60 mins; (mix in NS 100 kj2 mL) Route: IVPB; Infused Over: 60 mins; Site: right antecubital; 08/31 00:33 Follow up: IV Status: Completed infusion; IV Intake: 100ml kj2 08/30 23:51 Drug: morphine IVP or IV 4 mg IVP once over 4 mins Route: IVP; Infused Over: 4 mins; kj2 Site: right antecubital; 08/31 00:32 Follow up: Response: No adverse reaction kj2 Medication: 00:49 VIS not applicable for this client. vc1 Intake: 08/30 20:47 IV: 50ml; Total: 50ml. kj2 08/31 00:33 IV: 100ml; Total: 150ml. kj2 Outcome: 08/30 22:33 Decision to Hospitalize by Provider. sp4 08/31 00:48 Admitted to Med/surg accompanied by tech, via wheelchair, room 213, vc1 Condition: stable Instructed on the need for admit, 00:49 Patient left the ED. vc1 Signatures: Dispatcher [employer] EDMS Abeba Zamora RN RN vc1 Jesús Lagunas MD MD sp4 Beth Kraus Vivian vk McDonald, Brad RN RN bm8 Katey Gilmore RN RN kj2 Rancho Vickers RN ss12
[2024-08-30] MEDS ORDERED: METOCLOPRAMIDE 10 MG/2mL INJ ONE (23:10)
[2024-08-30] MEDS ORDERED: NA CHLORIDE 0.9% 100 ML ONE (23:11)
[2024-08-30] MEDS ORDERED: PIPERACIL/TAZO 3.375 GM VIAL IV ONE (23:11)
--- NOTE | 2024-08-30 23:21 | P.HP ---
Certification for Inpatient Patient admitted to: Inpatient With expected LOS: >2 Midnights Patient will require the following post-hospital care: None Practitioner: I am a practitioner with admitting privileges, knowledge of patient current condition, hospital course, and medical plan of care. Services: Services provided to patient in accordance with Admission requirements found in Title 42 Section 412.3 of the Code of Federal Regulations <Abdiel Wallace - Last Filed: 08/31/24 06:46> Patient History Date of Service: 08/30/24 Reason for admission: Right flank pain. History of Present Illness: Patient is a 66-year-old male with past medical history of type 2 diabetes mellitus, essential hypertension, BPH, for which he does self straight cath 3 times a day. Patient presents to the ER today complaining of severe pain right flank with associated nausea and vomiting nonbilious and nonbloody content. Patient also complains of associated fever and chills that started this morning. Patient states when he woke up this morning he had severe right flank pain with no associated chest pain or shortness of breath, states the pain progressively worsening which then prompted him to report to the ER. Patient states for the past 3 months whenever he eats food, feels like vomiting with no associated abdominal pain. States he has not consulted with a GI doctor at this time. Course in ER: (1) CT abdomen and pelvis without contrast. Impression: (A) any bladder, right renal pelvis, right calyces and left calyx. This may indicate emphysematous cystitis/pyelonephritis. (B) mild prostatic enlargement with mild bladder distention. (C) moderate bilateral hydronephrosis without visualization of the genitourinary calculus. This may be a sequela of the bladder distention and vesicoureteral reflux. (D) 5 mm nodule stable since March 2024. - Past Medical/Surgical History Diabetic: Yes -: HTN -: DM 2 -: HLD -: BPH -: Tonsillectomy. -: Right elbow surgery. -: Right hand surgery. - Family History Mother -: Cancer (Lung cancer.) Father -: Heart disease, Hypertension - Social History Alcohol use: No CD- Drugs: No Caffeine use: No <Abdiel Wallace - Last Filed: 08/31/24 06:46> Date of Service: 08/31/24 <Madelyn Church - Last Filed: 08/31/24 06:50> Allergies No Known Allergies Allergy (Verified 03/13/24 04:51) Home Medications: Amlodipine [Norvasc*] 5 mg PO DAILY 03/26/24 Atorvastatin Calcium [Lipitor] 40 mg PO BEDTIME 03/26/24 Empagliflozin [Jardiance] 25 mg PO DAILY 03/26/24 Glipizide [Glucotrol Xl] 25 mg PO DAILY 03/26/24 Metformin ER [Glucophage ER*] 1,000 mg PO DAILY 03/26/24 Tamsulosin HCl [Flomax] 0.4 mg PO DAILY 03/26/24 Review of Systems 10-point ROS is otherwise unremarkable Genitourinary: Frequency, Urgency, Other (Urinary retention. Self straight cath 3 times daily.) <Abdiel Wallace - Last Filed: 08/31/24 06:46> Physical Examination - Physical Exam General: Alert, Oriented x3 HEENT: PERRLA, Mucous membr. moist/pink Neck: Supple, 2+ carotid pulse no bruit, No LAD, Without JVD or thyroid abnormality Respiratory: Clear to auscultation bilaterally, Normal air movement Cardiovascular: No edema, Normal pulses, Regular rate/rhythm, Normal S1 S2, No gallops, No rubs, No murmurs Capillary refill: <2 Seconds Gastrointestinal: Normal bowel sounds, W/out hepatomegaly, No ascites, No rebound, No guarding, Tenderness (Right flank area.) Musculoskeletal: Other (Right flank area.) Integumentary: No rashes, No breakdown, No significant lesion, No tenderne ss/swelling, No erythema, No warmth, No cyanosis Neurological: Normal gait, Normal speech, Normal strength at 5/5 x4 extr, Normal tone, Sensation intact, Cranial nerves 3-12 intact, Normal reflexes 2+, Normal affect Lymphatics: No axilla or inguinal lymphadenopathy Urinary: Bladder distention, Other - Studies Laboratory Data (last 24 hrs) 08/30/24 08/30/24 19:50 19:50 WBC 15.70 H Hgb 11.0 L Hct 33.8 L Plt Count 447 H Sodium 127 L Potassium 3.4 L BUN 21 H Creatinine 2.18 H Glucose 610 H* Total Bilirubin 1.1 H AST < 10 L ALT 22 Alkaline Phosphatase 217 H Lipase 21 <Abdiel Wallace - Last Filed: 08/31/24 06:46> - Studies Laboratory Data (last 24 hrs) 08/30/24 08/30/24 19:50 19:50 WBC 15.70 H Hgb 11.0 L Hct 33.8 L Plt Count 447 H Sodium 127 L Potassium 3.4 L BUN 21 H Creatinine 2.18 H Glucose 610 H* Total Bilirubin 1.1 H AST < 10 L ALT 22 Alkaline Phosphatase 217 H Lipase 21 <Madelyn Church - Last Filed: 08/31/24 06:50> Male Exam - Male Exam Inguinal exam: No hernias Prostate: Other (History of BPH.) <RodrigoAbdiel - Last Filed: 08/31/24 06:46> Assessment and Plan - Plan Patient presents the ER complaining of severe right flank pain, patient diagnosed with acute pyelonephritis, urinary retention and LUCAS. (1)Acute pyelonephritis/urinary retention/LUCAS. -Ceftriaxone 1 g IV every 12 hours. -Jaffe catheterization. -IV NS at 75 mL/ hr. -Zofran 4 mg IV as needed every 6 hours. - Tamsulosin 0.4 mg p.o. daily. (2)Chronic type 2 diabetes mellitus. -ACHS-aggressive sliding scale. - Glipizide 10 mg p.o. daily. (3)Chronic essential hypertension. -Continue home medication amlodipine 10 mg p.o. daily. -Hydralazine 10 mg IV [place] every 6 hours systolic 160 or greater diastolic 90 or greater. (4)Chronic hypercholesterolemia. -Atorvastatin 40 mg p.o. nightly. (5)Explained entire treatment plan to the patient, solicit questions answered and voiced understanding. Discharge Plan: Home Plan to discharge in: Greater than 2 days - Advance Directives Does patient have a Living Will: No Does patient have a Durable POA for Healthcare: No - Code Status/Comfort Care Code Status Assessed: No Code Status: Full Code Critical Care: No Time Spent Managing Pts Care (In Minutes): 55 <RodrigoAbdiel - Last Filed: 08/31/24 06:46> Physician Review: Patient Assessed, Agree with Above Assessment and Plan <Madelyn Church - Last Filed: 08/31/24 06:50>
[2024-08-31] MEDS: HEPARIN 5000 UNIT/ML 1 ML VIAL SQ SCH (00:41)
[2024-08-31 00:45] LABS: Anion Gap 12.0 mEq/L (5.0-15.0); BUN Blood Urea Nitrogen 20.0 mg/dL (7-18); Potassium 4.0 mEq/L (3.5-5.1)
[2024-08-31 00:46] LABS: Glucose Level 478.0 mg/dL (74-106)
[2024-08-31] MEDS: HYDRALAZINE HCL 20 MG/ML VIAL IV PRN (00:57)
[2024-08-31 01:05] VITALS: BMI 25.7
[2024-08-31 01:11] VITALS: O2SAT 100
[2024-08-31 06:39] LABS: Absolute Lymphocytes (CBC) 1.2 K/uL (0.7-4.9); Hematocrit 31.9 % (39.6-49.0); Hemoglobin 10.4 g/dL (13.6-17.9); MCH 26.7 pg (27.0-35.0); MCHC 32.7 g/dL (32.0-36.0); MCV 81.5 fL (80-100); MPV 6.9 fL (7.6-11.3); Nucleated RBC Absolute Count 0.0 (0-0); Nucleated Red Blood Cells % 0.1 % (0-0); RBC Red Blood Cell Count 3.91 M/uL (4.33-5.43); White Blood Count 15.30 thou/uL (4.3-10.9)
[2024-08-31 06:59] LABS: ALT/SGPT 16 U/L (16-61); Albumin 2.5 g/dL (3.4-5.0); Albumin/Globulin Ratio 0.5 (1.1-1.8); Alkaline Phosphatase 187 U/L (45-117); Anion Gap 11.1 mEq/L (5.0-15.0); BUN Blood Urea Nitrogen 19 mg/dL (7-18); Globulin 4.7 g/dL (2.3-3.5); Glucose Level 392 mg/dL (74-106); Magnesium 1.9 mg/dL (1.6-2.4); Potassium 4.1 mEq/L (3.5-5.1)
[2024-08-31 07:03] LABS: AST/SGOT < 10 U/L (15-37)
[2024-08-31] MEDS: glipiZIDE 5 MG TAB PO SCH (08:00)
[2024-08-31] MEDS: METFORMIN HCL 500 MG TAB PO SCH (08:00)
[2024-08-31] MEDS: ACETAMINOPHEN 325 MG TABLET PO PRN (08:17)
[2024-08-31] MEDS: TAMSULOSIN 0.4 MG SR CAP PO SCH (08:19)
[2024-08-31] MEDS: CEFTRIAXONE 1,000 MG in NA CHLORIDE 0.9% 50 ML IVPB SCH (08:19)
[2024-08-31] MEDS: INSULIN REGULAR (HUMAN) 100 UNIT/ML SQ SCH (08:29)
[2024-08-31] MEDS: ONDANSETRON 4 MG/2 ML VIAL IV PRN (08:30)
[2024-08-31] MEDS ORDERED: MORPHINE 2 MG/ML SYR IV PRN (08:32)
[2024-08-31] MEDS: NA CHLORIDE 0.9% 1,000 ML IV SCH (12:20)
--- NOTE | 2024-08-31 13:27 | P.PN ---
Date of Service: 08/31/24 Subjective: Resting in bed. Slight improvement in symptoms overnight. Nursing staff at bedside. He will try to eat something later today. Endorses pain in the back. Rated as an 8 out of 10. Review of Systems 10-point ROS is otherwise unremarkable Genitourinary: Frequency, Urgency, Other Physical Examination - Physical Exam General: Alert, Oriented x3 HEENT: PERRLA, Mucous membr. moist/pink Neck: Supple, 2+ carotid pulse no bruit, No LAD, Without JVD or thyroid abnormality Respiratory: Clear to auscultation bilaterally, Normal air movement Cardiovascular: No edema, Normal pulses, Regular rate/rhythm, Normal S1 S2, No gallops, No rubs, No murmurs Capillary refill: <2 Seconds Gastrointestinal: Normal bowel sounds, W/out hepatomegaly, No ascites, No rebound, No guarding, Tenderness (Right flank area.) Musculoskeletal: Other (Right flank area.) Integumentary: No rashes, No breakdown, No significant lesion, No tenderness/swelling, No erythema, No warmth, No cyanosis Neurological: Normal gait, Normal speech, Normal strength at 5/5 x4 extr, Normal tone, Sensation intact, Cranial nerves 3-12 intact, Normal reflexes 2+, Normal affect Lymphatics: No axilla or inguinal lymphadenopathy Urinary: Bladder distention, Other - Studies Laboratory Data (last 24 hrs) 08/30/24 08/30/24 19:50 19:50 WBC 15.70 H Hgb 11.0 L Hct 33.8 L Plt Count 447 H Sodium 127 L Potassium 3.4 L BUN 21 H Creatinine 2.18 H Glucose 610 H* Total Bilirubin 1.1 H AST < 10 L ALT 22 Alkaline Phosphatase 217 H Lipase 21 - Studies Laboratory Data (last 24 hrs) 08/30/24 08/30/24 19:50 19:50 WBC 15.70 H Hgb 11.0 L Hct 33.8 L Plt Count 447 H Sodium 127 L Potassium 3.4 L BUN 21 H Creatinine 2.18 H Glucose 610 H* Total Bilirubin 1.1 H AST < 10 L ALT 22 Alkaline Phosphatase 217 H Lipase 21 Assessment and Plan - Plan Patient presents the ER complaining of severe right flank pain, patient diagnosed with acute pyelonephritis, urinary retention and LUCAS. Acute pyelonephritis/urinary retention/LUCAS. -Ceftriaxone 1 g IV every 12 hours. -Jaffe catheterization. -IV NS at 75 mL/ hr. -Zofran 4 mg IV as needed every 6 hours. -Tamsulosin 0.4 mg p.o. daily. - Add morphine and [facility] for pain control. uncontrolled type 2 diabetes mellitus with hyperglycemia -ACHS-aggressive sliding scale. - Glipizide 10 mg p.o. daily. Chronic essential hypertension. -Continue home medication amlodipine 10 mg p.o. daily. -Hydralazine 10 mg IV [place] every 6 hours systolic 160 or greater diastolic 90 or greater. Chronic hypercholesterolemia. -Atorvastatin 40 mg p.o. nightly. Explained entire treatment plan to the patient, solicit questions answered and voiced understanding. Discharge Plan: Home Plan to discharge in: Greater than 2 days - Advance Directives Does patient have a Living Will: No Does patient have a Durable POA for Healthcare: No - Code Status/Comfort Care Code Status Assessed: No Code Status: Full Code Critical Care: No Time spent on the encounter, including patient evaluation, history taking, physical exam, medical decision making, coordination of care, and documentation, was 35 minutes. Time includes direct [id number] interaction with the patient and indirect time spent reviewing records, ordering tests, and discussing the care plan.
[2024-08-31] MEDS: HYDROCODONE/APAP 5/325 MG TAB PO PRN (20:58)
[2024-08-31] MEDS: ATORVASTATIN 40 MG TAB PO SCH (20:58)
[2024-09-01 06:12] LABS: Absolute Lymphocytes (CBC) 1.4 K/uL (0.7-4.9); Hematocrit 27.0 % (39.6-49.0); Hemoglobin 9.0 g/dL (13.6-17.9); MCH 27.2 pg (27.0-35.0); MCHC 33.5 g/dL (32.0-36.0); MCV 81.2 fL (80-100); MPV 6.5 fL (7.6-11.3); Nucleated RBC Absolute Count 0.0 (0-0); Nucleated Red Blood Cells % 0.0 % (0-0); RBC Red Blood Cell Count 3.32 M/uL (4.33-5.43); White Blood Count 15.60 thou/uL (4.3-10.9)
[2024-09-01 06:56] LABS: AST/SGOT 14 U/L (15-37); Albumin 2.1 g/dL (3.4-5.0); Albumin/Globulin Ratio 0.5 (1.1-1.8); Alkaline Phosphatase 185 U/L (45-117); Anion Gap 12.9 mEq/L (5.0-15.0); BUN Blood Urea Nitrogen 24 mg/dL (7-18); Globulin 4.2 g/dL (2.3-3.5); Glucose Level 191 mg/dL (74-106); Magnesium 2.0 mg/dL (1.6-2.4); Potassium 3.9 mEq/L (3.5-5.1)
[2024-09-01 07:02] LABS: ALT/SGPT < 14 U/L (16-61)
--- NOTE | 2024-09-01 08:15 | P.PN ---
Date of Service: 09/01/24 Subjective: Remains tachycardic. Blood pressures been mildly elevated Review of Systems 10-point ROS is otherwise unremarkable Genitourinary: Frequency, Urgency, Other Physical Examination - Physical Exam General: Alert, Oriented x3 HEENT: PERRLA, Mucous membr. moist/pink Neck: Supple, 2+ carotid pulse no bruit, No LAD, Without JVD or thyroid abnormality Respiratory: Clear to auscultation bilaterally, Normal air movement Cardiovascular: No edema, Normal pulses, Regular rate/rhythm, Normal S1 S2, No gallops, No rubs, No murmurs Capillary refill: <2 Seconds Gastrointestinal: Normal bowel sounds, W/out hepatomegaly, No ascites, No rebou nd, No guarding, Tenderness (Right flank area.) Musculoskeletal: Other (Right flank area.) Integumentary: No rashes, No breakdown, No significant lesion, No tenderness/swelling, No erythema, No warmth, No cyanosis Neurological: Normal gait, Normal speech, Normal strength at 5/5 x4 extr, Normal tone, Sensation intact, Cranial nerves 3-12 intact, Normal reflexes 2+, Normal affect Lymphatics: No axilla or inguinal lymphadenopathy Urinary: Bladder distention, Other - Studies Laboratory Data (last 24 hrs) 08/30/24 08/30/24 19:50 19:50 WBC 15.70 H Hgb 11.0 L Hct 33.8 L Plt Count 447 H Sodium 127 L Potassium 3.4 L BUN 21 H Creatinine 2.18 H Glucose 610 H* Total Bilirubin 1.1 H AST < 10 L ALT 22 Alkaline Phosphatase 217 H Lipase 21 - Studies Laboratory Data (last 24 hrs) 08/30/24 08/30/24 19:50 19:50 WBC 15.70 H Hgb 11.0 L Hct 33.8 L Plt Count 447 H Sodium 127 L Potassium 3.4 L BUN 21 H Creatinine 2.18 H Glucose 610 H* Total Bilirubin 1.1 H AST < 10 L ALT 22 Alkaline Phosphatase 217 H Lipase 21 Assessment and Plan - Plan Patient presents the ER complaining of severe right flank pain, patient diagnosed with acute pyelonephritis, urinary retention and LUCAS. Acute pyelonephritis/urinary retention/LUCAS. - WBC remains high at 15.6 - Procalcitonin is elevated - Stop Rocephin and start Merrem - Intermittent straight cath as needed. Bladder scan as needed - Stop fluids - Continue Zofran as needed - Tamsulosin restarted - Add morphine and [place] for pain control. uncontrolled type 2 diabetes mellitus with hyperglycemia -Improving, blood sugars now ranging in the 190s to 200s. -ACHS-aggressive sliding scale. - Glipizide 10 mg p.o. daily. Hypertensive urgency -Continue home medication amlodipine 10 mg p.o. daily. -Hydralazine 10 mg IV [place] every 6 hours systolic 160 or greater diastolic 90 or greater. Chronic hypercholesterolemia. -Atorvastatin 40 mg p.o. nightly. Hyponatremia Improving. Stop fluids Anemia Hemoglobin stable at 9 Discharge Plan: Home Plan to discharge in: 2 days - Advance Directives Does patient have a Living Will: No Does patient have a Durable POA for Healthcare: No - Code Status/Comfort Care Code Status Assessed: No Code Status: Full Code Critical Care: No Time spent on the encounter, including patient evaluation, history taking, physical exam, medical decision making, coordination of care, and documentation, was 35 minutes. Time includes direct [id number] interaction with the patient and indirect time spent reviewing records, ordering tests, and discussing the care plan.
[2024-09-01] MEDS: AMLODIPINE 5 MG TAB PO SCH (08:42)
[2024-09-01] MEDS: POTASSIUM CL SA 10 MEQ TAB PO ONE (08:42)
[2024-09-01] MEDS ORDERED: TAMSULOSIN 0.4 MG SR CAP PO SCH (09:00)
[2024-09-01] MEDS ORDERED: MORPHINE 4 MG/ML SYR IV PRN (14:38)
[2024-09-01] MEDS: Meropenem 1,000 MG in NA CHLORIDE 0.9% 100 ML IV SCH (20:54)
[2024-09-02 06:08] LABS: Absolute Lymphocytes (CBC) 1.5 K/uL (0.7-4.9); Hematocrit 29.8 % (39.6-49.0); Hemoglobin 9.7 g/dL (13.6-17.9); MCH 26.3 pg (27.0-35.0); MCHC 32.4 g/dL (32.0-36.0); MCV 81.4 fL (80-100); MPV 6.8 fL (7.6-11.3); Nucleated RBC Absolute Count 0.0 (0-0); Nucleated Red Blood Cells % 0.0 % (0-0); RBC Red Blood Cell Count 3.66 M/uL (4.33-5.43); White Blood Count 13.60 thou/uL (4.3-10.9)
[2024-09-02 06:42] LABS: Albumin 2.2 g/dL (3.4-5.0); Albumin/Globulin Ratio 0.5 (1.1-1.8); Alkaline Phosphatase 291 U/L (45-117); Anion Gap 11.1 mEq/L (5.0-15.0); BUN Blood Urea Nitrogen 23 mg/dL (7-18); Globulin 4.8 g/dL (2.3-3.5); Glucose Level 130 mg/dL (74-106); Magnesium 2.1 mg/dL (1.6-2.4); Potassium 4.1 mEq/L (3.5-5.1)
[2024-09-02 06:46] LABS: AST/SGOT < 10 U/L (15-37)
[2024-09-02 06:47] LABS: ALT/SGPT < 14 U/L (16-61)
--- NOTE | 2024-09-02 16:08 | P.PN ---
Date of Service: 09/02/24 Subjective: Feels better today. Still experience some mild back pain. He is eating and drinking well. He is voiding and moving his bowels appropriately. No fevers overnight Review of Systems 10-point ROS is otherwise unremarkable Genitourinary: Frequency, Urgency, Other Physical Examination - Physical Exam General: Alert, Oriented x3 HEENT: PERRLA, Mucous membr. moist/pink Neck: Supple, 2+ carotid pulse no bruit, No LAD, Without JVD or thyroid abnormality Respiratory: Clear to auscultation bilaterally, Normal air movement Cardiovascular: No edema, Normal pulses, Regular rate/rhythm, Normal S1 S2, No gallops, No rubs, No murmurs Capillary refill: <2 Seconds Gastrointestinal: Normal bowel sounds, W/out hepatomegaly, No ascites, No rebound, No guarding, Tenderness (Right flank area.) Musculoskeletal: Other (Right flank area.) Integumentary: No rashes, No breakdown, No significant lesion, No tenderness/swelling, No erythema, No warmth, No cyanosis Neurological: Normal gait, Normal speech, Normal strength at 5/5 x4 extr, Normal tone, Sensation intact, Cranial nerves 3-12 intact, Normal reflexes 2+, Normal affect Lymphatics: No axilla or inguinal lymphadenopathy Urinary: Bladder distention, Other - Studies Laboratory Data (last 24 hrs) 08/30/24 08/30/24 19:50 19:50 WBC 15.70 H Hgb 11.0 L Hct 33.8 L Plt Count 447 H Sodium 127 L Potassium 3.4 L BUN 21 H Creatinine 2.18 H Glucose 610 H* Total Bilirubin 1.1 H AST < 10 L ALT 22 Alkaline Phosphatase 217 H Lipase 21 - Studies Laboratory Data (last 24 hrs) 08/30/24 08/30/24 19:50 19:50 WBC 15.70 H Hgb 11.0 L Hct 33.8 L Plt Count 447 H Sodium 127 L Potassium 3.4 L BUN 21 H Creatinine 2.18 H Glucose 610 H* Total Bilirubin 1.1 H AST < 10 L ALT 22 Alkaline Phosphatase 217 H Lipase 21 Assessment and Plan - Plan Patient presents the ER complaining of severe right flank pain, patient diagnosed with acute pyelonephritis, urinary retention and LUCAS. Acute pyelonephritis/urinary retention/LUCAS. -WBC trending down -Continue meropenem - Intermittent straight cath as needed. Bladder scan as needed - Stop fluids - Continue Zofran as needed - Tamsulosin restarted - Add morphine and [place] for pain control. - CBC in the a.m. uncontrolled type 2 diabetes mellitus with hyperglycemia -Improving, blood sugars now ranging in the 190s to 200s. -ACHS-aggressive sliding scale. - Glipizide 10 mg p.o. daily. Hypertensive urgency -Continue home medication amlodipine 10 mg p.o. daily. -Hydralazine 10 mg IV [place] every 6 hours systolic 160 or greater diastolic 90 or greater. Chronic hypercholesterolemia. -Atorvastatin 40 mg p.o. nightly. Hyponatremia Improving. Stop fluids Anemia Hemoglobin stable at 9 Discharge Plan: Home Plan to discharge in: 2 days - Advance Directives Does patient have a Living Will: No Does patient have a Durable POA for Healthcare: No - Code Status/Comfort Care Code Status Assessed: No Code Status: Full Code Critical Care: No Time spent on the encounter, including patient evaluation, history taking, physical exam, medical decision making, coordination of care, and documentation, was 35 minutes. Time includes direct [id number] interaction with the patient and indirect time spent reviewing records, ordering tests, and discussing the care plan.
[2024-09-03 04:40] LABS: Absolute Lymphocytes (CBC) 1.7 K/uL (0.7-4.9); Hematocrit 29.2 % (39.6-49.0); Hemoglobin 10.0 g/dL (13.6-17.9); MCH 27.6 pg (27.0-35.0); MCHC 34.3 g/dL (32.0-36.0); MCV 80.3 fL (80-100); MPV 6.5 fL (7.6-11.3); Nucleated RBC Absolute Count 0.0 (0-0); Nucleated Red Blood Cells % 0.1 % (0-0); RBC Red Blood Cell Count 3.64 M/uL (4.33-5.43); White Blood Count 13.10 thou/uL (4.3-10.9)
--- NOTE | 2024-09-03 08:29 | P.CNS ---
Date of Consult: 09/03/24 Reason for Consult: LUCAS Requesting Physician: Madelyn Church Chief Complaint: Right flank pain. History of Present Illness: Patient is a 66-year-old male with past medical history of type 2 diabetes mellitus, essential hypertension, BPH, for which he does self straight cath 3 times a day. Patient presents to the ER today complaining of severe pain right flank with associated nausea and vomiting nonbilious and nonbloody content. Patient also complains of associated fever and chills that started this morning. Patient states when he woke up this morning he had severe right flank pain with no associated chest pain or shortness of breath, states the pain progressively worsening which then prompted him to report to the ER. Patient states for the past 3 months whenever he eats food, feels like vomiting with no associated abdominal pain. States he has not consulted with a GI doctor at this time. Course in ER: (1) CT abdomen and pelvis without contrast. Impression: (A) any bladder, right renal pelvis, right calyces and left calyx. This may indicate emphysematous cystitis/pyelonephritis. (B) mild prostatic enlargement with mild bladder distention. (C) moderate bilateral hydronephrosis without visualization of the genitourinary calculus. This may be a sequela of the bladder distention and vesicoureteral reflux. (D) 5 mm nodule stable since March 2024. 19:24 This 64 yrs old Other Race Male presents to ER via Unassigned with complaints of sp4 Vomiting, Low Back Pain, Urinary Problem. 08/31 19:19 Patient presents with complaint of bladder pain, back pain, hematuria, also vomiting sp4 and low back pain.. Patient has prostatic megaly he practices self catheterizations at home 3 times a day. Reports BPH with chronic obstruction. Hx of self cath [facility]. Reports occasional Motrin. Allergies No Known Allergies Allergy (Verified 03/13/24 04:51) Home medications list reviewed: Yes Home Medications: Amlodipine [Norvasc*] 5 mg PO DAILY 03/26/24 Atorvastatin Calcium [Lipitor] 40 mg PO BEDTIME 03/26/24 Empagliflozin [Jardiance] 25 mg PO DAILY 03/26/24 Glipizide [Glucotrol Xl] 25 mg PO DAILY 03/26/24 Metformin ER [Glucophage ER*] 1,000 mg PO DAILY 03/26/24 Tamsulosin HCl [Flomax] 0.4 mg PO DAILY 03/26/24 Losartan Potassium 100 mg PO DAILY 08/31/24 - Past Medical/Surgical History Diabetic: Yes -: HTN -: DM 2 -: HLD -: BPH -: Tonsillectomy. -: Right elbow surgery. -: Right hand surgery. - Family History Mother Medical History: Cancer (Lung cancer.) Father Medical History: Heart disease, Hypertension - Social History Alcohol use: No CD- Drugs: No Caffeine use: No Place of Residence: Home Review of Systems 10-point ROS is otherwise unremarkable Physical Examination Temp Pulse Resp BP Pulse Ox 98.5 F 88 18 151/83 H 96 09/03/24 08:00 09/03/24 08:00 09/03/24 08:00 09/03/24 08:00 09/03/24 08:00 General: In no apparent distress, Oriented x3, Cooperative HEENT: Atraumatic Neck: Supple Respiratory: Clear to auscultation bilaterally, Normal air movement Cardiovascular: No edema, Regular rate/rhythm Gastrointestinal: Soft and benign, Non-distended Musculoskeletal: No clubbing, No contractures Integumentary: No rashes, No cyanosis Neurological: Normal speech Urinary: Alonso catheter Blood work reviewed in the chart. Imagings Data: EXAMINATION: CT ABDOMEN AND PELVIS WITHOUT CONTRAST CLINICAL INDICATION: Abdominal pain right flank pain TECHNIQUE: CT abdomen and pelvis was performed, as per department protocol. IV contrast and oral was not administered.Axial, sagittal and coronal reconstructions were obtained. One or more of the following dose reduction techniques were used: Automated exposure control, adjustment of the mA and/or kV according to the patient size, and/or iterative reconstruction. Unless otherwise specified, incidental findings do not require dedicated imaging follow-up. [id number]. COMPARISON: March 2024. FINDINGS: The lack of intravenous and oral contrast limits evaluation of solid organs, vessels and bowel. 5 mm left lower lobe nodule unchanged. The liver, spleen, pancreas, and adrenals grossly normal. Moderate bilateral hydronephrosis and hydroureter. Air is present within the right renal pelvis and right calyces. An air bubbles present within the left renal calyx. Air is present within the bladder. Bladder wall mildly to moderately thickened. Bladder is mildly distended. Marked enlargement prostate gland. Small inguinal hernias containing fat. No evidence of diverticulitis IMPRESSION: Air in the bladder, right renal pelvis, right calyces and left calyx. This may indicate emphysematous cystitis/pyelonephritis Marked prostatic enlargement with mild bladder distention. Moderate bilateral hydronephrosis without visualization of a genitourinary calculus. This may be the sequela of the bladder distention or vesicoureteral reflux. 5 mm nodule stable since March 2024. Per Fleischner recommendations low-risk patients: no routine follow-up required high-risk patients: optional CT at 12 months Conclusions/Impression: Stage II LUCAS in the setting of infection and obstruction Proteinuria -No NSAIDs -Continue Alonso -Repeat UA -Renal and Bladder US pending -Start IVF with NS Hyponatremia -Start IVF with NS HTN -Continue Amlodipine DM II with CKD -RISS -Discontinue metformin Hypoalbuminemia -Consider protein supplementation Anemia in chronic illness -Monitor H&H BPH with LUTS Hx of self catheterization and follows with urology at the [facility] -Increase Tamsulosin BID -Continue alonso -Consider urology evaluation Acute Cystitis with Hematuria Pyelonephritis Enterobacter Aerogenes -Continue Meropenem -ID following Hospitalist and ER notes reviewed Thank you kindly for the consultation
[2024-09-03] MEDS: TAMSULOSIN 0.4 MG SR CAP PO SCH (09:26)
[2024-09-03] MEDS: NA CHLORIDE 0.9% 1,000 ML IV SCH (11:08)
--- NOTE | 2024-09-03 13:27 | P.PN ---
Date of Service: 09/03/24 Subjective: He continues to improve. I discussed getting repeat CT tomorrow to assess for air in the bladder. He slept well last night. Vitals are stable overnight. He denies fevers and chills. His back pain is improving. His cough is improving. Review of Systems 10-point ROS is otherwise unremarkable Genitourinary: Frequency, Urgency, Other Physical Examination - Physical Exam General: Alert, Oriented x3 HEENT: PERRLA, Mucous membr. moist/pink Neck: Supple, 2+ carotid pulse no bruit, No LAD, Without JVD or thyroid abnormality Respiratory: Clear to auscultation bilaterally, Normal air movement Cardiovascular: No edema, Normal pulses, Regular rate/rhythm, Normal S1 S2, No gallops, No rubs, No murmurs Capillary refill: <2 Seconds Gastrointestinal: Normal bowel sounds, W/out hepatomegaly, No ascites, No rebound, No guarding, Tenderness (Right flank area.) Musculoskeletal: Other (Right flank area.) Integumentary: No rashes, No breakdown, No significant lesion, No tenderness/s welling, No erythema, No warmth, No cyanosis Neurological: Normal gait, Normal speech, Normal strength at 5/5 x4 extr, Normal tone, Sensation intact, Cranial nerves 3-12 intact, Normal reflexes 2+, Normal affect Lymphatics: No axilla or inguinal lymphadenopathy Urinary: Bladder distention, Other - Studies Laboratory Data (last 24 hrs) 08/30/24 08/30/24 19:50 19:50 WBC 15.70 H Hgb 11.0 L Hct 33.8 L Plt Count 447 H Sodium 127 L Potassium 3.4 L BUN 21 H Creatinine 2.18 H Glucose 610 H* Total Bilirubin 1.1 H AST < 10 L ALT 22 Alkaline Phosphatase 217 H Lipase 21 - Studies Laboratory Data (last 24 hrs) 08/30/24 08/30/24 19:50 19:50 WBC 15.70 H Hgb 11.0 L Hct 33.8 L Plt Count 447 H Sodium 127 L Potassium 3.4 L BUN 21 H Creatinine 2.18 H Glucose 610 H* Total Bilirubin 1.1 H AST < 10 L ALT 22 Alkaline Phosphatase 217 H Lipase 21 Assessment and Plan - Plan Patient presents the ER complaining of severe right flank pain, patient diagnosed with acute pyelonephritis, urinary retention and LUCAS. Acute pyelonephritis/urinary retention/LUCAS. -Nephrology and infectious disease consulted -Antibiotic switched over to IV Cipro. Appreciate infectious disease recommendations -Spoke with urology Dr. Jacobson (urology) due to air in the bladder on CT. Will repeat CT scan tomorrow -Continue Jaffe catheter for now. Follow-up with urology -Continue Zofran as needed -Tamsulosin twice daily -Add morphine and [place] for pain control. -CBC in the a.m. - Now on low rate fluids uncontrolled type 2 diabetes mellitus with hyperglycemia -Improving, blood sugars now ranging in the 190s to 200s. -ACHS-aggressive sliding scale. - Glipizide 10 mg p.o. daily. Hypertensive urgency -Continue home medication amlodipine 10 mg p.o. daily. -Hydralazine 10 mg IV [place] every 6 hours systolic 160 or greater diastolic 90 or greater. Chronic hypercholesterolemia. -Atorvastatin 40 mg p.o. nightly. Hyponatremia Improving. Stop fluids Anemia Hemoglobin stable at 9 Discharge Plan: Home Plan to discharge in: 2 days - Advance Directives Does patient have a Living Will: No Does patient have a Durable POA for Healthcare: No - Code Status/Comfort Care Code Status Assessed: No Code Status: Full Code Critical Care: No Time spent on the encounter, including patient evaluation, history taking, physical exam, medical decision making, coordination of care, and documentation, was 35 minutes. Time includes direct [id number] interaction with the patient and indirect time spent reviewing records, ordering tests, and discussing the care plan.
--- NOTE | 2024-09-03 13:54 | P.CNS ---
Date of Consult: 09/03/24 reason for consult: pyelonephritis HPI:66-year-old male with past medical history of type 2 diabetes mellitus,HTN, and BPH. Patient presents to the ER due to severe pain right flank with associated nausea and vomiting. He also report hematuria, fever and chills. Pt report has been self cathing q6h since may. CT abdomen and pelvis without contrast shows emphysematous cystitis/pyelonephritis. mild prostatic enlargement with mild bladder distention. moderate bilateral hydronephrosis without visualization of the genitourinary calculus. This may be a sequela of the bladder distention and vesicoureteral reflux. 5 mm nodule stable since March 2024. Urine culture grew Enterobacter Aero. Pt is currently on merrem. WBC slightly elevated 13.1 Pt does not have any fever/hills today. no other concern - Past Medical/Surgical History Diabetic: Yes -: HTN -: DM 2 -: HLD -: BPH -: Tonsillectomy. -: Right elbow surgery. -: Right hand surgery. - Family History Mother -: Cancer (Lung cancer.) Father -: Heart disease, Hypertension - Social History Alcohol use: No CD- Drugs: No Caffeine use: No Allergies No Known Allergies Allergy (Verified 03/13/24 04:51) ROS: please see hpi vital sign Temp Pulse Resp BP Pulse Ox 98.0 F 90 18 151/90 H 96 09/03/24 12:00 09/03/24 12:00 09/03/24 12:00 09/03/24 12:00 09/03/24 12:00 Physical Examination - Physical Exam General: Alert, Oriented x3 HEENT: PERRLA,EOMI Neck: Supple, No JVD Respiratory: CTA Cardiovascular: RRR Gastrointestinal: normal BS, NT, soft. Neurological: clear speech Microbiology 08/30/24 19:50 Clean Catch Urine [place] Count - Final >100,000 CFU/ML. 08/30/24 19:50 Clean Catch Urine - Final Enterobacter Aerogenes 08/30/24 19:50 Blood - Blood Aerobic Blood Culture - Preliminary No growth in 24 hours. 08/30/24 19:50 Blood - Blood Anaerobic Blood Culture - Preliminary No growth in 24 hours. labs: wbc 13.1, hgb 10, platelet 445, albumin 2.2 Assessment and Planning 1. acute pyelonephritis 2. urinary retention 3. acute kidney injury 4. DM2 with hyperglycemia 5. anemia 6. thrombocytosis 7. moderate protein calories malnourishment Urine culture grew Enterobacter Aerogenes. Pt on IV merrem from 09/01-09/03. Recommend switching to IV cipro x 10 days. Pt can go home with PO cipro 500 mg BID after discharge. tentative stop date sep 13. EKG QT/QTc 364/442 recommend to f/u with urology outpatient will monitor wbc and fever trend blood culture no growth thank you for the consult Dr Church case discussed with Dr Wills
[2024-09-03 18:14] LABS: Sqamous Epithelial None Seen /HPF (None Seen); Urine Crystals Unidentified Few /HPF (None Seen); Urine Micro Reflex YN NO BILL MICROSCOPIC; Urine WBC Clump Many /HPF (None Seen); Urine Yeast (Budding) Few /HPF (None Seen)
[2024-09-03 18:15] LABS: UR CL RANDOM 54.0 mmol/L (25-40); UR POTASSIUM 13.0 mmol/L (20-40); UR SODIUM 54.0 mmol/L (27-287)
[2024-09-03 18:43] LABS: MA/CREAT RATIO 283.3 (< 30.0); UR CREAT 72.0 mg/dL (20-370); UR MICROALBUMIN 20.4 mg/dL (< 1.9); UR PROTEIN 80.3 mg/dL (<11.9)
--- NOTE | 2024-09-03 19:18 | RAD REPORT ---
EXAMINATION: US RETROPERITONEUM CLINICAL INDICATION: [facility] MAIN evaluate hydronephrosis TECHNIQUE: Real-time ultrasonography of the abdomen was performed. COMPARISON: CT abdomen and pelvis 08/30/2024 FINDINGS: RIGHT KIDNEY: Right renal length measurement: 12.2 cm. Normal in echogenicity and size. Mild hydronep hrosis with debris. No calculus or solid mass. LEFT KIDNEY: Left renal length measurement: 11.4 cm. Normal in echogenicity and size. Mild hydronephr osis with debris. No calculus or solid mass. URINARY BLADDER: Suboptimally distended limiting evaluation. Diffuse wall thickening, measuring up to 1.4cm. ADDITIONAL FINDINGS: None. IMPRESSION: Mild bilateral hydronephrosis with debris. Diffuse wall thickening, measuring up to 1.4, could relate to trabeculation in the setting of chronic obstruction, or sequelae of cystitis.
[2024-09-03] MEDS: CIPROFLOXACIN 400mg IV 400 MG/200 ML BAG IV SCH (21:43)
--- NOTE | 2024-09-03 23:02 | RAD REPORT ---
EXAMINATION: US RETROPERITONEUM CLINICAL INDICATION: [facility] MAIN evaluate hydronephrosis TECHNIQUE: Real-time ultrasonography of the abdomen was performed. COMPARISON: CT abdomen and pelvis 08/30/2024 FINDINGS: RIGHT KIDNEY: Right renal length measurement: 12.2 cm. Normal in echogenicity and size. Mild hydronep hrosis with debris. No calculus or solid mass. LEFT KIDNEY: Left renal length measurement: 11.4 cm. Normal in echogenicity and size. Mild hydronephr osis with debris. No calculus or solid mass. URINARY BLADDER: Suboptimally distended limiting evaluation. Diffuse wall thickening, measuring up to 1.4cm. ADDITIONAL FINDINGS: None. IMPRESSION: Mild bilateral hydronephrosis with debris. Diffuse wall thickening, measuring up to 1.4, could relate to trabeculation in the setting of chronic obstruction, or sequelae of cystitis.
[2024-09-04 07:30] LABS: Albumin 2.1 g/dL (3.4-5.0); Albumin/Globulin Ratio 0.5 (1.1-1.8); Alkaline Phosphatase 226 U/L (45-117); Anion Gap 5.4 mEq/L (5.0-15.0); BUN Blood Urea Nitrogen 22 mg/dL (7-18); Globulin 4.5 g/dL (2.3-3.5); Glucose Level 221 mg/dL (74-106); Potassium 4.4 mEq/L (3.5-5.1); Uric Acid 6.3 mg/dL (3.5-7.2)
[2024-09-04 07:31] LABS: ALT/SGPT < 14 U/L (16-61); AST/SGOT < 10 U/L (15-37)
[2024-09-04 08:02] LABS: Absolute Lymphocytes (CBC) 2.0 K/uL (0.7-4.9); Hematocrit 28.2 % (39.6-49.0); Hemoglobin 9.3 g/dL (13.6-17.9); MCH 26.9 pg (27.0-35.0); MCHC 33.0 g/dL (32.0-36.0); MCV 81.4 fL (80-100); MPV 6.7 fL (7.6-11.3); Nucleated RBC Absolute Count 0.0 (0-0); Nucleated Red Blood Cells % 0.1 % (0-0); RBC Red Blood Cell Count 3.47 M/uL (4.33-5.43); White Blood Count 10.10 thou/uL (4.3-10.9)
[2024-09-04 09:10] VITALS: TEMP 97.9
--- NOTE | 2024-09-04 11:05 | P.PN ---
Date of Service: 09/04/24 Vital Signs Temp Pulse Resp BP Pulse Ox 97.9 F 79 19 147/91 H 95 09/04/24 08:00 09/04/24 09:21 09/04/24 08:00 09/04/24 09:21 09/04/24 08:00 Medications Acetaminophen (Acetaminophen 325 Mg Tablet) 650 mg PO Q4HP PRN PRN Reason: Pain scale 2-4 (Mild) Last Admin: 09/01/24 15:01 Dose: 650 mg Hydrocodone Bitart/Acetaminophen (Hydrocodone/Apap 5/325 Mg Tab) 1 tab PO Q8H PRN PRN Reason: Pain scale 5-7 (Moderate) Last Admin: 09/02/24 12:31 Dose: 1 tab Amlodipine Besylate (Amlodipine 5 Mg Tab) 5 mg PO DAILY [facility] Last Admin: 09/04/24 09:21 Dose: 5 mg Atorvastatin Calcium (Atorvastatin 40 Mg Tab) 40 mg PO BEDTIME SVEN Last Admin: 09/03/24 21:42 Dose: 40 mg Glipizide (Glipizide 5 Mg Tab) 10 mg PO DAILY WITH BREAKFAST [facility] Last Admin: 09/04/24 09:20 Dose: 10 mg Heparin Sodium (Porcine) (Heparin 5000 Unit/Ml 1 Ml Vial) 5,000 unit SQ Q8HR SC H Last Admin: 09/04/24 09:23 Dose: 5,000 unit Hydralazine HCl (Hydralazine Hcl 20 Mg/Ml Vial) 10 mg IV Q6HP PRN PRN Reason: FOR SBP>160 OR DBP>90 [facility] Last Admin: 09/02/24 08:13 Dose: 10 mg Sodium Chloride (Ns 1000 Ml Ivbag) 1,000 mls @ 75 mls/hr IV .[id number] [facility] Last Admin: 09/04/24 02:55 Dose: 1,000 mls Ciprofloxacin/Dextrose (Cipro 400 Mg/200 Ml Ivpb (Premix)) 400 mg in 200 mls @ 200 mls/hr IV Q12HR SVEN Last Admin: 09/04/24 09:21 Dose: 200 mls Insulin Human Regular (Insulin Regular (Human) 100 Unit/Ml) 0 unit SQ ACHS SVEN; Protocol Last Admin: 09/04/24 08:38 Dose: 4 unit Morphine Sulfate (Morphine 4 Mg/Ml Syr) 2 mg IV Q6H PRN PRN Reason: Pain scale 8-10 (Severe) Ondansetron HCl (Ondansetron 4 Mg/2 Ml Vial) 4 mg IV Q6HP PRN PRN Reason: NAUSEA / VOMITING Last Admin: 09/02/24 20:23 Dose: 4 mg Tamsulosin HCl (Tamsulosin 0.4 Mg Sr Cap) 0.4 mg PO BID SVEN Last Admin: 09/04/24 09:20 Dose: 0.4 mg Microbiology Results 08/30/24 19:50 Clean Catch Urine [place] Count - Final >100,000 CFU/ML. 08/30/24 19:50 Clean Catch Urine - Final Enterobacter Aerogenes 08/30/24 19:50 Blood - Blood Aerobic Blood Culture - Preliminary No growth in 24 hours. 08/30/24 19:50 Blood - Blood Anaerobic Blood Culture - Preliminary No growth in 24 hours. Assessment/ Plan: Nephrology Progress Note No Dyspnea No Chest Pain No Acute Events Overnight Vital Signs, Medications, Blood Work, and Imaging reviewed in the chart General: In no apparent distress, Oriented x3, Cooperative HEENT: Atraumatic Neck: Supple Respiratory: Clear to auscultation bilaterally, Normal air movement Cardiovascular: No edema, Regular rate/rhythm Gastrointestinal: Soft and benign, Non-distended Musculoskeletal: No clubbing, No contractures Integumentary: No rashes, No cyanosis Neurological: Normal speech Urinary: Alonso catheter Blood work reviewed in the chart. Imagings Data: EXAMINATION: CT ABDOMEN AND PELVIS WITHOUT CONTRAST CLINICAL INDICATION: Abdominal pain right flank pain TECHNIQUE: CT abdomen and pelvis was performed, as per department protocol. IV contrast and oral was not administered.Axial, sagittal and coronal reconstructions were obtained. One or more of the following dose reduction techniques were used: Automated exposure control, adjustment of the mA and/or kV according to the patient size, and/or iterative reconstruction. Unless otherwise specified, incidental findings do not require dedicated imaging follow-up. [id number]. COMPARISON: March 2024. FINDINGS: The lack of intravenous and oral contrast limits evaluation of solid organs, vessels and bowel. 5 mm left lower lobe nodule unchanged. The liver, spleen, pancreas, and adrenals grossly normal. Moderate bilateral hydronephrosis and hydroureter. Air is present within the right renal pelvis and right calyces. An air bubbles present within the left renal calyx. Air is present within the bladder. Bladder wall mildly to moderately thickened. Bladder is mildly distended. Marked enlargement prostate gland. Small inguinal hernias containing fat. No evidence of diverticulitis IMPRESSION: Air in the bladder, right renal pelvis, right calyces and left calyx. This may indicate emphysematous cystitis/pyelonephritis Marked prostatic enlargement with mild bladder distention. Moderate bilateral hydronephrosis without visualization of a genitourinary calculus. This may be the sequela of the bladder distention or vesicoureteral reflux. 5 mm nodule stable since March 2024. Per Fleischner recommendations low-risk patients: no routine follow-up required high-risk patients: optional CT at 12 months Conclusions/Impression: Stage II LUCAS in the setting of infection and obstruction Proteinuria -No NSAIDs -Continue Alonso -Repeat UA -Renal and Bladder US reviewed; Repeat CT pending -Continue IVF with NS Hyponatremia -Continue IVF with NS HTN -Continue Amlodipine DM II with CKD -RISS Hypoalbuminemia -Consider protein supplementation Anemia in chronic illness -Monitor H&H BPH with LUTS Hx of self catheterization and follows with urology at the [facility] -Continue Tamsulosin BID -Continue alonso -Consider urology evaluation Acute Cystitis with Hematuria Pyelonephritis Enterobacter Aerogenes -Continue Meropenem -ID following Hospitalist and ID notes reviewed
[2024-09-04 12:11] LABS: Blood Morphology Comment NOT SEEN (NOT SEEN); White Blood Cell Scan OK (OK)
[2024-09-04 12:12] LABS: Differential Total Cells Count 100; Segmented Neutrophils 61 % (40-80)
--- NOTE | 2024-09-04 14:09 | RAD REPORT ---
EXAMINATION: CT ABDOMEN AND PELVIS WITHOUT CONTRAST CLINICAL INDICATION: recheck for air in the bladder TECHNIQUE: CT abdomen and pelvis was performed, without IV contrast, as per department protocol. Axia l, sagittal and coronal reconstructions were obtained. One or more of the following dose reduction techniques were used: Automated exposure control, adjustment of the mA and kV according to the patien t size, and iterative reconstruction. Unless otherwise specified, incidental findings do not require dedicated imaging follow-up. COMPARISON: 08/30/2024 FINDINGS: The lack of intravenous contrast limits the sensitivity of this exam for evaluation of solid visceral organs, vascular structures, and retroperitoneum. LOWER CHEST: The visualized lung bases are clear. LIVER:Mild fatty liver is present. No focal lesion or biliary dilatation is seen. Grossly unremarka ble gallbladder. SPLEEN: Normal size. No focal lesion. PANCREAS: No mass, ductal dilation, or jose-pancreatic fluid. ADRENALS: Normal; no mass. KIDNEYS AND URETERS: Moderate bilateral hydronephrosis and hydroureter is present. Small air bubbles seen anterior right renal calyx. Small air bubbles also present right ureter. URINARY BLADDER: Urinary bladder is significantly thickened with Jaffe catheter in place. The prostat e enlargement also seen. GASTROINTESTINAL TRACT: No evidence of bowel obstruction, significant free fluid, free air or abscess . Moderate stool is retained throughout the colon. APPENDIX: Normal appendix. LYMPH NODES: No lymphadenopathy. MUSCULOSKELETAL: Moderate lumbosacral degenerative changes. IMPRESSION: Moderate bilateral hydronephrosis and hydroureter is present. The urinary bladder significantly thick ened with urinary bladder catheter in place. Tiny amounts of air present in the tract is only related to instrumentation. Prostate is enlarged significantly and is presumed to contribute to bladd er outlet obstruction.
--- NOTE | 2024-09-04 14:56 | P.PN ---
Date of Service: 09/04/24 Subjective: Doing well. We reviewed his blood work at bedside. He is feeling much better. We discussed going home. He will follow-up with his urologist. Review of Systems 10-point ROS is otherwise unremarkable Genitourinary: Frequency, Urgency, Other Physical Examination - Physical Exam General: Alert, Oriented x3 HEENT: PERRLA, Mucous membr. moist/pink Neck: Supple, 2+ carotid pulse no bruit, No LAD, Without JVD or thyroid abnormality Respiratory: Clear to auscultation bilaterally, Normal air movement Cardiovascular: No edema, Normal pulses, Regular rate/rhythm, Normal S1 S2, No gallops, No rubs, No murmurs Capillary refill: <2 Seconds Gastrointestinal: Normal bowel sounds, W/out hepatomegaly, No ascites, No rebound, No guarding, Tenderness (Right flank area.) Musculoskeletal: Other (Right flank area.) Integumentary: No rashes, No breakdown, No significant lesion, No tenderness/swelling, No erythema, No warmth, No cyanosis Neurological: Normal gait, Normal speech, Normal strength at 5/5 x4 extr, Normal tone, Sensation intact, Cranial nerves 3-12 intact, Normal reflexes 2+, Normal affect Lymphatics: No axilla or inguinal lymphadenopathy Urinary: Bladder distention, Other - Studies Laboratory Data (last 24 hrs) 08/30/24 08/30/24 19:50 19:50 WBC 15.70 H Hgb 11.0 L Hct 33.8 L Plt Count 447 H Sodium 127 L Potassium 3.4 L BUN 21 H Creatinine 2.18 H Glucose 610 H* Total Bilirubin 1.1 H AST < 10 L ALT 22 Alkaline Phosphatase 217 H Lipase 21 - Studies Laboratory Data (last 24 hrs) 08/30/24 08/30/24 19:50 19:50 WBC 15.70 H Hgb 11.0 L Hct 33.8 L Plt Count 447 H Sodium 127 L Potassium 3.4 L BUN 21 H Creatinine 2.18 H Glucose 610 H* Total Bilirubin 1.1 H AST < 10 L ALT 22 Alkaline Phosphatase 217 H Lipase 21 Assessment and Plan - Plan Patient presents the ER complaining of severe right flank pain, patient diagnosed with acute pyelonephritis, urinary retention and LUCAS. Acute pyelonephritis/urinary retention/LUCAS. -Leukocytosis resolved -Nephrology and infectious disease consulted -Antibiotic switched over to IV Cipro for 10 days. Appreciate infectious disease recommendations -Spoke with urology Dr. Jacobson (urology) due to air in the bladder on CT. -Repeat CT scan with moderate bilateral hydronephrosis and hydroureter. Small amount of air in the tract. Enlarged prostate causing bladder outlet obstruction -Continue Jaffe catheter for now. Follow-up with urology -Continue Zofran as needed -Tamsulosin twice daily -Add morphine and [place] for pain control. -CBC in the a.m. - Now on low rate fluids uncontrolled type 2 diabetes mellitus with hyperglycemia -Improving, blood sugars now ranging in the 190s to 200s. -ACHS-aggressive sliding scale. - Glipizide 10 mg p.o. daily. Hypertensive urgency -Continue home medication amlodipine 10 mg p.o. daily. -Hydralazine 10 mg IV [place] every 6 hours systolic 160 or greater diastolic 90 or greater. Chronic hypercholesterolemia. -Atorvastatin 40 mg p.o. nightly. Hyponatremia Stable Anemia Hemoglobin stable at 9 Discharge Plan: Home Plan to discharge in: 2 days - Advance Directives Does patient have a Living Will: No Does patient have a Durable POA for Healthcare: No - Code Status/Comfort Care Code Status Assessed: No Code Status: Full Code Critical Care: No Time spent on the encounter, including patient evaluation, history taking, physical exam, medical decision making, coordination of care, and documentation, was 35 minutes. Time includes direct [id number] interaction with the patient and indirect time spent reviewing records, ordering tests, and discussing the care plan.
--- NOTE | 2024-09-04 15:53 | P.DS ---
Admission Date: 08/30/24 Discharge Date: 09/04/24 Disposition: ROUTINE DISCHARGE Discharge Condition: GOOD Reason for Admission: Right flank pain. Brief History of Present Illness: Patient is a 66-year-old male with past medical history of type 2 diabetes mellitus, essential hypertension, BPH, for which he does self straight cath 3 times a day. Patient presents to the ER today complaining of severe pain right flank with associated nausea and vomiting nonbilious and nonbloody content. Patient also complains of associated fever and chills that started this morning. Patient states when he woke up this morning he had severe right flank pain with no associated chest pain or shortness of breath, states the pain progressively worsening which then prompted him to report to the ER. Patient states for the past 3 months whenever he eats food, feels like vomiting with no associated abdominal pain. States he has not consulted with a GI doctor at this time. Course in ER: (1) CT abdomen and pelvis without contrast. Impression: (A) any bladder, right renal pelvis, right calyces and left calyx. This may indicate emphysematous cystitis/pyelonephritis. (B) mild prostatic enlargement with mild bladder distention. (C) moderate bilateral hydronephrosis without visualization of the genitourinary calculus. This may be a sequela of the bladder distention and vesicoureteral reflux. (D) 5 mm nodule stable since March 2024. Hospital Course: Physical Examination - Physical Exam General: Alert, Oriented x3 HEENT: PERRLA, Mucous membr. moist/pink Neck: Supple, 2+ carotid pulse no bruit, No LAD, Without JVD or thyroid abnormality Respiratory: Clear to auscultation bilaterally, Normal air movement Cardiovascular: No edema, Normal pulses, Regular rate/rhythm, Normal S1 S2, No gallops, No rubs, No murmurs Capillary refill: <2 Seconds Gastrointestinal: Normal bowel sounds, W/out hepatomegaly, No ascites, No rebound, No guarding, Tenderness (Right flank area.) Musculoskeletal: Other (Right flank area.) Integumentary: No rashes, No breakdown, No significant lesion, No tenderness/swelling, No erythema, No warmth, No cyanosis Neurological: Normal gait, Normal speech, Normal strength at 5/5 x4 extr, Normal tone, Sensation intact, Cranial nerves 3-12 intact, Normal reflexes 2+, Normal affect Lymphatics: No axilla or inguinal lymphadenopathy Urinary: Bladder distention, Other - Studies Laboratory Data (last 24 hrs) 08/30/24 08/30/24 19:50 19:50 WBC 15.70 H Hgb 11.0 L Hct 33.8 L Plt Count 447 H Sodium 127 L Potassium 3.4 L BUN 21 H Creatinine 2.18 H Glucose 610 H* Total Bilirubin 1.1 H AST < 10 L ALT 22 Alkaline Phosphatase 217 H Lipase 21 - Studies Laboratory Data (last 24 hrs) 08/30/24 08/30/24 19:50 19:50 WBC 15.70 H Hgb 11.0 L Hct 33.8 L Plt Count 447 H Sodium 127 L Potassium 3.4 L BUN 21 H Creatinine 2.18 H Glucose 610 H* Total Bilirubin 1.1 H AST < 10 L ALT 22 Alkaline Phosphatase 217 H Lipase 21 Assessment and Plan - Plan Patient presents the ER complaining of severe right flank pain, patient diagnosed with acute pyelonephritis, urinary retention and LUCAS. Acute pyelonephritis/urinary retention/LUCAS. -Leukocytosis resolved -Nephrology and infectious disease consulted -Antibiotic switched over to 500 mg twice daily PO Cipro for 10 days. Appreciate infectious disease recommendations -Spoke with urology Dr. Jacobson (urology) due to air in the bladder on CT. -Repeat CT scan with moderate bilateral hydronephrosis and hydroureter. Small amount of air in the tract. Enlarged prostate causing bladder outlet obstruction -Continue Jaffe catheter for now. Follow-up with urology -Continue Zofran as needed -Tamsulosin twice daily -Add morphine and [place] for pain control. -CBC in the a.m. - Now on low rate fluids uncontrolled type 2 diabetes mellitus with hyperglycemia -Improving, blood sugars now ranging in the 190s to 200s. -ACHS-aggressive sliding scale. - Glipizide 10 mg p.o. daily. Hypertensive urgency -Continue home medication amlodipine 10 mg p.o. daily. -Hydralazine 10 mg IV AK every 6 hours systolic 160 or greater diastolic 90 or greater. Chronic hypercholesterolemia. -Atorvastatin 40 mg p.o. nightly. Hyponatremia Stable Anemia Hemoglobin stable at 9 Discharge Plan: Home Plan to discharge in: 2 days - Advance Directives Does patient have a Living Will: No Does patient have a Durable POA for Healthcare: No Vital Signs/Physical Exam: Temp Pulse Resp BP Pulse Ox 97.9 F 79 18 151/90 H 94 09/04/24 12:00 09/04/24 12:00 09/04/24 12:00 09/04/24 12:00 09/04/24 12:00 Laboratory Data at Discharge: WBC 10.10 thou/uL (4.3-10.9) 09/04/24 06:58 Hgb 9.3 g/dL (13.6-17.9) L 09/04/24 06:58 Hct 28.2 % (39.6-49.0) L 09/04/24 06:58 Plt Count 502 thou/uL (152-406) H 09/04/24 06:58 Sodium 133 mEq/L (136-145) L 09/04/24 06:58 Potassium 4.4 mEq/L (3.5-5.1) 09/04/24 06:58 BUN 22 mg/dL (7-18) H 09/04/24 06:58 Creatinine 1.73 mg/dL (0.70-1.30) H 09/04/24 06:58 Glucose 221 mg/dL (74-106) H 09/04/24 06:58 Uric Acid 6.3 mg/dL (3.5-7.2) 09/04/24 06:58 Phosphorus 3.5 mg/dL (2.5-4.9) 09/04/24 06:58 Magnesium 2.1 mg/dL (1.6-2.4) 09/02/24 05:43 Total Bilirubin 0.5 mg/dL (0.2-1.0) 09/04/24 06:58 AST < 10 U/L (15-37) L 09/04/24 06:58 ALT < 14 U/L (16-61) L 09/04/24 06:58 Alkaline Phosphatase 226 U/L (45-117) H 09/04/24 06:58 Lipase 21 U/L (13-75) 08/30/24 19:50 Home Medications: Amlodipine [Norvasc*] 5 mg PO DAILY 03/26/24 Atorvastatin Calcium [Lipitor] 40 mg PO BEDTIME 03/26/24 Empagliflozin [Jardiance] 25 mg PO DAILY 03/26/24 Glipizide [Glucotrol Xl] 25 mg PO DAILY 03/26/24 Metformin ER [Glucophage ER*] 1,000 mg PO DAILY 03/26/24 Tamsulosin HCl [Flomax] 0.4 mg PO DAILY 03/26/24 Losartan Potassium 100 mg PO DAILY 08/31/24 Ciprofloxacin HCl [Cipro 500 MG Tablet] 500 mg PO BID 10 Days #20 tab 09/04/24 New Medications: Ciprofloxacin HCl [Cipro 500 MG Tablet] 500 mg PO BID 10 Days #20 tab [facility] [Primary Care Provider] -
[2024-09-04 16:49] VITALS: BP 162/91
--- NOTE | 2024-09-04 21:13 | PN ---
Subjective: The patient is lying in bed. No new acute event. Chart reviewed. Feels better today. Denies any other problems. Objective: Vital Signs: Temperature 97, pulse 79, respirations 18, blood pressure 151/90. HEENT: Unremarkable. Neck: Supple. Lungs: Basal crackles. Heart: S1, S2. Regular. Abdomen: Soft, nontender. Bowel sounds present. Extremities: Trace edema. Laboratory Data: Shows WBC 10.10, hemoglobin 9.3, platelets 502. BUN of 22, creatinine 1.7. Albumi n level is 2.1. CT abdomen shows moderate bilateral hydronephrosis and hydroureter with urinary blad shiv significant thickening and urinary bladder catheter in place. Prostate is enlarged significantly and is presumed to contribute to bladder outlet obstruction. Assessment And Plan: 1. Urosepsis secondary to Enterobacter aerogenes with acute pyelonephritis and urinary retention seco ndary to BPH. 2. Acute kidney injury. 3. Diabetes mellitus. 4. Anemia of chronic disease. 5. Thrombocytosis. 6. Renal insufficiency. 7. Moderate protein-calorie malnourishment. 8. Continue IV meropenem. We will follow the patient as needed. NF/MODL Voice ID: [id number] Report ID: [id number]
== END 2024-09-04 18:55 | disposition home or self-care (01) | DRG 872 ==
LOC: ER 19:19 → ERHOLD 23:19 → 2ND 08-31 00:27
PROVIDERS: ADMIT Family Medicine; ATTEND Family Medicine
PROC: 0T9B70Z Drainage of Bladder with Drainage Device, Via Natural or Artificial Opening (ICD-10-PCS; principal; 2024-08-31)
DX: A41.9 Sepsis, unspecified organism (principal); N10 Acute pyelonephritis; N17.9 Acute kidney failure, unspecified; E87.1 Hypo-osmolality and hyponatremia; E44.0 Moderate protein-calorie malnutrition; R65.20 Severe sepsis without septic shock; I16.0 Hypertensive urgency; D75.839 Thrombocytosis, unspecified; E78.00 Pure hypercholesterolemia, unspecified; I12.9 Hypertensive chronic kidney disease with stage 1 through stage 4 chronic kidney disease, or unspecified chronic kidney disease; N18.9 Chronic kidney disease, unspecified; E11.22 Type 2 diabetes mellitus with diabetic chronic kidney disease; E11.65 Type 2 diabetes mellitus with hyperglycemia; D63.1 Anemia in chronic kidney disease; N40.1 Benign prostatic hyperplasia with lower urinary tract symptoms; E88.09 Other disorders of plasma-protein metabolism, not elsewhere classified; R33.8 Other retention of urine; R31.9 Hematuria, unspecified; Z79.84 Long term (current) use of oral hypoglycemic drugs; Z79.899 Other long term (current) drug therapy
CPT/HCPCS: 36415; 74176; 76770; 76857; 80048; 80053; 81001; 82043; 82435; 82570; 82947; 83690; 83735; 84100; 84132; 84145; 84156; 84300; 84550; 85025; 87040; 87077; 87086; 87088; 87186; 93005; 96365; 96367; 96375; 99285; J0360; J0696; J0744; J1644; J1815; J2185; J2270; J2405; J2543; J2765; J7030

== ENCOUNTER 2024-11-09 10:55 | Emergency (ER) | payer OTHER ==
[2024-11-09] MEDS ORDERED: NA CHLORIDE 0.9% 1,000 ML ONE ×2 (11:26→13:44)
[2024-11-09 11:40] LABS: Absolute Lymphocytes (CBC) 1.2 K/uL (0.7-4.9); Hematocrit 28.0 % (39.6-49.0); Hemoglobin 9.0 g/dL (13.6-17.9); MCH 26.4 pg (27.0-35.0); MCHC 32.2 g/dL (32.0-36.0); MCV 82.1 fL (80-100); MPV 6.7 fL (7.6-11.3); Nucleated RBC Absolute Count 0.0 (0-0); Nucleated Red Blood Cells % 0.0 % (0-0); RBC Red Blood Cell Count 3.41 M/uL (4.33-5.43); White Blood Count 20.60 thou/uL (4.3-10.9)
[2024-11-09 11:48] LABS: PT Prothrombin Time 15.6 SECONDS (10-13.0); Protime INR 1.39
--- NOTE | 2024-11-09 11:58 | RAD REPORT ---
EXAMINATION: Head Brain Wo Cont CLINICAL INDICATION: Male, 64 years old.Dizziness;Declining state TECHNIQUE: Axial CT images from the skull base to the vertex without intravenous contrast. Coronal an d sagittal reformatted images were created from the data set. One or more of the following dose reduction techniques were used: Automated exposure control, adjustment of the mA and/or kV according to patient size, and/or iterative reconstruction. Unless otherwise specified, incidental findings do not require dedicated imaging follow-up. [id number]. COMPARISON: 03/26/2024 FINDINGS: INTRACRANIAL: No acute intracranial hemorrhage. No acute large vascular territory infarct. No hydroce phalus. No mass effect or midline shift. No significant white matter disease. VASCULATURE: No visualized abnormalities in the arteries or dural venous sinuses. SCALP/SKULL: No calvarial fracture identified. No acute soft tissue abnormality. SINUSES: The visualized paranasal sinuses are mostly clear. No significant mastoid fluid. IMPRESSION: No acute intracranial abnormality.
--- NOTE | 2024-11-09 12:04 | RAD REPORT ---
EXAM: Chest Abd Pelvis Wo Con CLINICAL INDICATION: Male, 64 years old dizziness, wkns, abd pain, near syncope, vomiting TECHNIQUE: CT chest, abdomen and pelvis was performed, without IV contrast, as per department protoco l. Axial, sagittal and coronal reconstructions were obtained. One or more of the following dose reduction techniques were used: Automated exposure control, adjustment of the mA and/or kV according to the patient size, and/or iterative reconstruction. Unless otherwise specified, incidental findings do not require dedicated imaging follow-up. [id number]. COMPARISON: 09/04/2024 FINDINGS: The lack of intravenous contrast limits the sensitivity of this exam for evaluation of solid visceral organs, vascular structures, and retroperitoneum. ---THORAX--- LOWER NECK AND CHEST WALL: Visualized thyroid gland and soft tissues are normal. MEDIASTINUM AND LYMPH NODES: No mediastinal mass or fluid collection. Normal size mediastinal, hilar, and axillary lymph nodes. THORACIC AORTA: No thoracic aortic aneurysm. PULMONARY ARTERIES: Enlarged main pulmonary arteries could indicate pulmonary artery hypertension. Un able to assess for pulmonary emboli without IV contrast. HEART: Mild cardiomegaly. No coronary calcifications. Small pericardial effusion. LUNGS AND AIRWAYS: Airways are clear. No evidence of airspace or interstitial process. No suspicious and/or stable pulmonary nodules. PLEURA: No pleural effusion. No pneumothorax. ---ABDOMEN/PELVIS--- UPPER GI: No significant abnormality. LIVER: Hepatomegaly. GALLBLADDER/BILE DUCTS: No biliary ductal dilatation.? PANCREAS: Atrophy but no acute findings. SPLEEN: Unremarkable. ADRENALS: No adrenal masses. KIDNEYS AND URETERS: Mild bilateral hydroureteronephrosis. There is air within both collecting system s. Nonspecific perinephric and periureteric stranding is present. No renal or ureteral calculi.Limited evaluation for renal lesions in the absence of IV contrast. ABDOMINAL AORTA AND OTHER VESSELS: Moderate atherosclerotic changes without aortic aneurysm. PERITONEUM: No abnormal free fluid. No free air. LYMPH NODES: No pathologic lymphadenopathy. ABDOMINAL WALL: Unremarkable SMALL BOWEL/COLON: Small bowel has normal course and caliber. No colonic wall thickening or pericolon ic inflammatory changes. Normal appendix. URINARY BLADDER: Severe circumferential bladder wall thickening. Gas is present within the bladder kiya men. REPRODUCTIVE ORGANS: Moderate prostatomegaly. ---COMBINED--- MUSCULOSKELETAL: Multilevel degenerative changes in the spine. No acute fracture. ADDITIONAL FINDINGS: None. IMPRESSION: Increased bilateral perinephric stranding with mild hydronephrosis and bilateral renal collecting sys tem gas could reflect emphysematous pyelitis secondary to infection. The patient self catheterizes. It is possible that it also could represent reflux of introduced bladder gas. Recommend correlation w ith urinalysis.
[2024-11-09 12:07] LABS: Albumin 1.9 g/dL (3.4-5.0); Albumin/Globulin Ratio 0.3 (1.1-1.8); Alkaline Phosphatase 359 U/L (45-117); Anion Gap 13.6 mEq/L (5.0-15.0); BUN Blood Urea Nitrogen 59 mg/dL (7-18); Globulin 5.8 g/dL (2.3-3.5); Glucose Level 242 mg/dL (74-106); NT PRO-BNP 497 pg/mL (<125); Troponin High Sensitivity 11.9 pg/mL (<58.9)
[2024-11-09 12:10] LABS: ALT/SGPT < 14 U/L (16-61); AST/SGOT < 10 U/L (15-37); Bilirubin Indirect, Calculated 0.3 mg/dL (0.2-0.8); Magnesium 2.4 mg/dL (1.6-2.4); Potassium 4.6 mEq/L (3.5-5.1)
--- NOTE | 2024-11-09 12:14 | RAD REPORT ---
EXAM: Chest Single View HISTORY: 64 years Male syncope COMPARISON: No prior exams FINDINGS: LUNGS/PLEURA: The lungs are clear. No pleural effusions or pneumothorax. No pulmonary edema. CARDIAC/MEDIASTINUM: The cardiac silhouette is within normal limits. UPPER ABDOMEN: No significant abnormality. BONES: No acute abnormality. LINES/TUBES/OTHER: N/A IMPRESSION: No evidence of acute cardiopulmonary disease.
[2024-11-09 12:55] LABS: Blood Morphology Comment NOT SEEN (NOT SEEN); Differential Total Cells Count 100; Segmented Neutrophils 85 % (40-80)
[2024-11-09] MEDS ORDERED: Levofloxacin 750mg IV 750 MG/150 ML BAG IV ONE (13:44)
[2024-11-09 13:59] LABS: Sqamous Epithelial None Seen /HPF (None Seen); Urine Crystals Unidentified Few /HPF (None Seen); Urine Culture Reflex Order REFLEXED; Urine Microscopic Reflex YN ORDER UMIC; Urine WBC Clump Many /HPF (None Seen); Urine Yeast (Budding) Few /HPF (None Seen)
--- NOTE | 2024-11-09 14:12 | ER ---
Nurse's Notes [facility] Name: Julius Perez Jr Age: 64 yrs Sex: Male : 1960 Arrival Date: 11/09/2024 Time: 10:55 Bed [id number] Private MD: Diagnosis: Emphysematous pyelitis;Acute kidney failure, unspecified;Sepsis, unspecified organism Presentation: 11/09 11:07 Chief complaint: Patient states: DIZZY SPELLS WITH LOSS OF BALANCE. LEGS FEEL NUMB, db ABDOMEN FEELS LIKE "BRICK IN STOMACH". STARTED SUNDAY. Coronavirus screen: Client denies travel out of the [place] in the last 14 days. At this time, the client does not indicate any symptoms associated with coronavirus-19. Ebola Screen: Patient negative for fever greater than or equal to 101.5 degrees Fahrenheit, and additional compatible Ebola Virus Disease symptoms Patient denies exposure to infectious person. Patient denies travel to an Ebola-affected area in the 21 days before illness onset. No symptoms or risks identified at this time. Initial Sepsis Screen: Does the patient meet any 2 criteria? No. Patient's initial sepsis screen is negative. Does the patient have a suspected source of infection? No. Patient's initial sepsis screen is negative. Risk Assessment: Do you want to hurt yourself or someone else? Patient reports no desire to harm self or others. Onset of symptoms was November 09, 2024. 11:07 Method Of Arrival: Ambulatory db 11:07 Acuity: DENNIS 3 db Triage Assessment: 11:07 General: Appears in no apparent distress. comfortable, Behavior is calm, cooperative. db 11:07 Pain: Denies pain. Neuro: Level of Consciousness is awake, alert, obeys commands, db Oriented to person, place, time, situation, Reports dizziness. Historical: - Allergies: 11:07 No Known Allergies; db - PMHx: 11:07 diabetes mellitus; Hypercholesterolemia; Hypertensive disorder; db - PSHx: 11:07 left elbow; Tonsillectomy; db - Immunization history:: Adult Immunizations unknown. - Infectious Disease History:: Denies. - Social history:: Smoking status: unknown. Screenin:00 [facility] ED Fall Risk Assessment (Adult) History of falling in the last 3 months, kj2 including since admission No falls in past 3 months (0 pts) Confusion or Disorientation No (0 pts) Intoxicated or Sedated No (0 pts) Impaired Gait No (0 pts) Mobility Assist Device Used No (0 pt) Altered Elimination No (0 pt) Score/Fall Risk Level 0 - 2 = Low Risk Maintained a safe environment, Hourly rounding (assess needs \\T\\ fall precautionary measures) done. Abuse screen: Denies threats or abuse. Denies injuries from another. Nutritional screening: No deficits noted. Tuberculosis screening: No symptoms or risk factors identified. Assessment: 11:10 Reassessment: Patient appears in no apparent distress at this time. Patient and/or db family updated on plan of care and expected duration. Pain level reassessed. Patient is alert, oriented x 3, equal unlabored respirations, skin warm/dry/pink. General: Appears in no apparent distress. comfortable, Behavior is calm, cooperative. 14:13 Reassessment: Patient appears in no apparent distress at this time. Patient and/or db family updated on plan of care and expected duration. Pain level reassessed. Patient is alert, oriented x 3, equal unlabored respirations, skin warm/dry/pink. 15:15 Reassessment: Patient appears in no apparent distress at this time. Patient and/or kj2 family updated on plan of care and expected duration. Pain level reassessed. Patient is alert, oriented x 3, equal unlabored respirations, skin warm/dry/pink. 16:15 Reassessment: Patient appears in no apparent distress at this time. Patient and/or kj2 family updated on plan of care and expected duration. Pain level reassessed. Patient is alert, oriented x 3, equal unlabored respirations, skin warm/dry/pink. 18:04 Reassessment: report given to SHAVON Canchola at [facility]. kj2 Vital Signs: 11:07 BP 123 / 88; Pulse 101; Resp 18; Pulse Ox 97% ; db 11:16 Temp 97.8(O); Weight 74.84 kg (M); Height 5 ft. 9 in. ; db 12:00 BP 120 / 74; Pulse 87; Resp 18; Pulse Ox 100% on R/A; db 13:05 BP 130 / 78; Pulse 93; Resp 18; Pulse Ox 97% ; db 14:00 BP 133 / 75; Pulse 90; Resp 18; Pulse Ox 98% on R/A; db 15:00 BP 135 / 79; Pulse 88; Resp 18; Pulse Ox 96% on R/A; kj2 16:00 BP 137 / 81; Pulse 90; Resp 20; Pulse Ox 97% on R/A; kj2 17:00 BP 145 / 84; Pulse 86; Resp 18; Pulse Ox 98% ; kj2 18:04 BP 150 / 85; Pulse 87; Resp 20; Pulse Ox 97% ; kj2 11:16 Body Mass Index 24.37 (74.84 kg, 175.26 cm) db ED Course: 10:58 Patient arrived in ED. sj2 10:59 Andressa Franks PA-C is PHCP. sb4 10:59 Juan Sanchez MD is Attending Physician. sb4 11:07 Arm band placed on Patient placed in an exam room. db 11:09 Meron Dickey, RN is Primary Nurse. db 11:13 Triage completed. db 11:15 Initial lab(s) drawn, by me, sent to lab. EKG done, by ED staff. Inserted saline lock: db 20 gauge in right antecubital area, using aseptic technique. Blood collected. Flushed with 10 mL NS. 11:55 Head Brain Wo Cont CT In Process Unspecified. EDMS 11:55 Chest Abdomen Pelvis Wo Con CT In Process Unspecified. EDMS 11:58 Patient moved back from CT. db 12:11 XRAY Chest (1 view) In Process Unspecified. EDMS 14:00 Patient has correct armband on for positive identification. Provided Education on: CALL kj2 LIGHT. 14:11 Chris Cordero MD is Hospitalizing Provider. sb4 14:13 Urine collected: straight cath specimen. Straight cath inserted, using sterile db technique, 12 Fr. Specimen obtained. PT PERFORMED SELF STRAIGHT CATH. 14:26 initiated a transfer with Lauren from the [facility] transfer center. eb 14:36 Meron Dickey, RN is Primary Nurse. db 17:52 administrative approval given by Renee Gill/ patient has been accepted to the [facility]/ ER/ . kaylin Horta has accepted the patient in transfer/ report to be called to [phone]. Administered Medications: 11:44 Drug: NS 0.9% IV 1000 ml IV at 1 bolus Per protocol; to be given as a bolus over 60 db minutes Route: IV; Rate: 1 bolus; Site: right antecubital; 14:00 Drug: NS 0.9% IV 1000 ml IV at 1000 ml once; to be given as a bolus over 60 minutes db Route: IV; Rate: 1000 ml; Site: right antecubital; 14:00 Drug: levofloxacin IVPB 750 mg 150 ml IVPB once over 90 mins Volume: 150 ml; Route: db IVPB; Infused Over: 90 mins; Site: right antecubital; Outcome: 14:12 Decision to Hospitalize by Provider. sb4 14:30 ER care complete, transfer ordered by MD. sb4 20:06 Patient left the ED. vc1 Signatures: Dispatcher [employer] EDMS Nae Will Vanessa RN RN vc1 Meron Dickey RN RN Andressa Lees, PA-C PA-C sb4 Katey Gilmore RN RN kj2 Lex Samano
--- NOTE | 2024-11-09 14:13 | EDPHYS ---
Physician Documentation [facility] Name: Julius Perez Jr Age: 64 yrs Sex: Male : 1960 Arrival Date: 11/09/2024 Time: 10:55 Bed [id number] Private MD: ED Physician Juan Sanchez HPI: 11/09 11:17 This 64 yrs old Male presents to ER via Ambulatory with complaints of Dizziness, Near sb4 Syncope, General Weakness. 11:17 Patient presents today with several complaints. He has been experiencing dizziness, sb4 generalized weakness, bilateral lower extremity numbness/tingling, falls, nausea and vomiting. states that his health has been declining for about 8 months now when he developed an bladder. He does have to straight cath himself 2-3 times a day because he is unable to fully empty his bladder on his own. He does feel like he gets a "rock "in his stomach after eating. Denies any shortness of breath or chest pain. Historical: - Allergies: 11:07 No Known Allergies; db - PMHx: 11:07 diabetes mellitus; Hypercholesterolemia; Hypertensive disorder; db - PSHx: 11:07 left elbow; Tonsillectomy; db - Immunization history:: Adult Immunizations unknown. - Infectious Disease History:: Denies. - Social history:: Smoking status: unknown. ROS: 11:17 Cardiovascular: Negative for chest pain, palpitations, and edema, sb4 11:17 Constitutional: Positive for weight loss, 11:17 Abdomen/GI: Positive for nausea and vomiting, abdominal distension, 11:17 Neuro: Positive for dizziness, numbness, near syncope, tingling, 11:17 All other systems are negative, Exam: 11:17 Head/Face: Normocephalic, atraumatic. Eyes: Extra-ocular motions intact. Periorbital sb4 areas with no swelling, redness, or edema. 11:17 Cardiovascular: Regular rate and rhythm with a normal S1 and S2. Respiratory: No increased work of breathing, no retractions or nasal flaring. Abdomen/GI: Soft, non-tender, no distension. Skin: Warm, dry with normal turgor. Normal color with no rashes, no lesions, and no evidence of cellulitis. MS/ Extremity: Pulses equal, no cyanosis. Neurovascular intact. Full, normal range of motion. Neuro: Awake and alert, GCS 15, oriented to person, place, time, and situation. Motor strength 5/5 in all extremities. Sensory grossly intact. 11:17 Constitutional: The patient appears in no acute distress, alert, awake, pale, 11:17 ENT: Mouth: Oral mucosa: dry, Vital Signs: 11:07 BP 123 / 88; Pulse 101; Resp 18; Pulse Ox 97% ; db 11:16 Temp 97.8(O); Weight 74.84 kg (M); Height 5 ft. 9 in. ; db 12:00 BP 120 / 74; Pulse 87; Resp 18; Pulse Ox 100% on R/A; db 13:05 BP 130 / 78; Pulse 93; Resp 18; Pulse Ox 97% ; db 14:00 BP 133 / 75; Pulse 90; Resp 18; Pulse Ox 98% on R/A; db 15:00 BP 135 / 79; Pulse 88; Resp 18; Pulse Ox 96% on R/A; kj2 16:00 BP 137 / 81; Pulse 90; Resp 20; Pulse Ox 97% on R/A; kj2 17:00 BP 145 / 84; Pulse 86; Resp 18; Pulse Ox 98% ; kj2 18:04 BP 150 / 85; Pulse 87; Resp 20; Pulse Ox 97% ; kj2 11:16 Body Mass Index 24.37 (74.84 kg, 175.26 cm) db MDM: 10:59 Medical Screening Exam initiated sb4 14:15 Differential diagnosis: CVA, generalized weakness, hypovolemia. Data reviewed: vital sb4 signs, nurses notes, lab test result(s), EKG, radiologic studies, and as a result, I will admit patient. Historians other than the Patient: Spouse/Significant Other: . Care significantly affected by the following chronic conditions: Diabetes, Hypertension. Counseling: I had a detailed discussion with the patient and/or guardian regarding the historical points, exam findings, and any diagnostic results supporting the discharge/admit diagnosis, lab results, radiology results, the need for further work-up and treatment in the hospital. 14:39 Consideration of Admission/Observation Patient was admitted/placed on observation. ED sb4 course: No urology on-call, hospitalist requests transfer. [facility], will attempt transfer to [place]. 11/09 11:15 Order name: Basic Metabolic Panel; Complete Time: 12:16 sb4 11/09 11:15 Order name: CBC with Diff; Complete Time: 12:57 sb4 11/09 11:15 Order name: LFT's; Complete Time: 12:16 sb4 11/09 11:15 Order name: Magnesium; Complete Time: 12:16 sb4 11/09 11:15 Order name: NT PRO-BNP; Complete Time: 12:16 sb4 11/09 11:15 Order name: PT-INR; Complete Time: 11:49 sb4 11/09 11:15 Order name: Troponin HS; Complete Time: 12:16 sb4 11/09 11:15 Order name: UA Rfx Carl Cult if indicated; Complete Time: 14:01 sb4 11/09 11:43 Order name: Manual Differential; Complete Time: 12:57 EDMS 11/09 12:05 Order name: Blood Culture Adult (2) sb4 11/09 12:05 Order name: Lactate w/ 2H reflex if indic.; Complete Time: 13:21 sb4 11/09 14:02 Order name: Urine Culture EDMS 11/09 11:15 Order name: Head Brain Wo Cont CT; Complete Time: 12:01 sb4 11/09 11:15 Order name: XRAY Chest (1 view); Complete Time: 12:16 sb4 11/09 11:39 Order name: Chest Abdomen Pelvis Wo Con CT; Complete Time: 12:05 sb4 11/09 11:15 Order name: Cardiac monitoring; Complete Time: 11:45 sb4 11/09 11:15 Order name: EKG - Nurse/Tech; Complete Time: 11:45 sb4 11/09 11:15 Order name: IV Saline Lock; Complete Time: 11:45 sb4 11/09 11:15 Order name: Labs collected and sent; Complete Time: 11:45 sb4 11/09 11:15 Order name: O2 Per Protocol; Complete Time: 11:45 sb4 11/09 11:15 Order name: O2 Sat Monitoring; Complete Time: 11:45 sb4 EC:48 Rate is 99 beats/min. Rhythm is regular, Normal Sinus Rhythm. NC interval is normal at sb4 140 msec. QRS interval is normal at 90 msec. QT interval is normal at 354 msec. No Q waves. T waves are Normal. No ST changes noted. Clinical impression: Normal ECG. Interpreted by me. Reviewed by me. Administered Medications: 11:44 Drug: NS 0.9% IV 1000 ml IV at 1 bolus Per protocol; to be given as a bolus over 60 db minutes Route: IV; Rate: 1 bolus; Site: right antecubital; 14:00 Drug: NS 0.9% IV 1000 ml IV at 1000 ml once; to be given as a bolus over 60 minutes db Route: IV; Rate: 1000 ml; Site: right antecubital; 14:00 Drug: levofloxacin IVPB 750 mg 150 ml IVPB once over 90 mins Volume: 150 ml; Route: db IVPB; Infused Over: 90 mins; Site: right antecubital; Disposition Summary: 11/09/24 14:30 Transfer Ordered Notes: Transfer Location: [facility] sb4 Reason: Higher level of care sb4 Condition: Fair(11/09/24 14:30) sb4 Problem: new(11/09/24 14:30) sb4 Symptoms: are unchanged(11/09/24 14:30) sb4 Accepting Physician: [facility](11/09/24 20:05[facility] vc1 Diagnosis - Emphysematous pyelitis sb4 - Acute kidney failure, unspecified(11/09/24 14:30) sb4 - Sepsis, unspecified organism sb4 Forms: - Medication Reconciliation Form sb4 - SBAR form sb4 Addendum: 11/19/2024 08:00 Co-signature as Attending Physician, Juan Sanchez MD I agree with the assessment and c whyte plan of care. Signatures: Dispatcher [employer] Juan Escobar MD MD cha Calcote, Vanessa RN RN vc1 Meron Dickey RN RN db Andressa Franks PA-C PA-C sb4 Corrections: (The following items were deleted from the chart) 11/09 11:15 11:15 BASIC METABOLIC PANEL+C.LAB.BRZ ordered. EDMS EDMS 11:15 11:15 CBC+H.LAB.BRZ ordered. EDMS EDMS 11:15 11:15 HEPATIC FUNCTION+C.LAB.BRZ ordered. EDMS EDMS 11:15 11:15 MAGNESIUM+C.LAB.BRZ ordered. EDMS EDMS 11:15 11:15 PROBNP+C.LAB.BRZ ordered. EDMS EDMS 11:15 11:15 PROTIME (+INR)+COAG.LAB.BRZ ordered. EDMS EDMS 11:15 11:15 Troponin High Sensitivity+C.LAB.BRZ ordered. EDMS EDMS 11:16 11:15 UA Rfx Carl Cult if indicated+U.LAB.BRZ ordered. EDMS EDMS 11:16 11:16 Chest Single View+RAD.RAD.BRZ ordered. EDMS EDMS 14:29 14:12 Inpatient Admission sb4 sb4 14:29 14:12 Chris Cordero sb4 sb4 14:29 14:12 Telemetry/MedSurg (Inpatient) sb4 sb4 14:29 14:12 Fair sb4 sb4 14:29 14:12 new sb4 sb4 14:29 14:12 are unchanged sb4 sb4 14:29 14:12 Standard sb4 sb4 14:29 14:12 sb4 sb4 14:29 14:12 Pyelonephritis acute sb4 sb4 14:29 14:12 Acute kidney failure, unspecified sb4 sb4 14:41 14:30 [facility] sb4 sb4 20:05 14:41 [facility] sb4 vc1
[2024-11-09 20:44] VITALS: BP 106/61; TEMP 98.2; O2SAT 100
== END 2024-11-09 20:06 ==
LOC: ER 10:55
DX: N11.1 Chronic obstructive pyelonephritis (principal); A41.9 Sepsis, unspecified organism; N17.9 Acute kidney failure, unspecified; I10 Essential (primary) hypertension; E11.9 Type 2 diabetes mellitus without complications
CPT/HCPCS: 93005; 87040 ×2; 87088; 85025; 81001; 87086; 80048; 36415; 83735; 87205 ×2; 85610; 80076; 83605; 87077 ×2; 87186 ×2; 84484; 83880; 70450; 71250; 74176; 71045; 51702; 96374; 99285; J7030 ×2